=== PATIENT | female | born 1950 | race Caucasian/White ===

== ENCOUNTER 2019-09-07 13:39 | Inpatient (IN) | payer MEDICARE, OTHER ==
[~2019-09-07] VITALS: Ht 157.5 cm; Wt 64.9 kg
--- NOTE | 2019-09-07 14:00 | NUR ---
ED Nurse Note: Patient brought in by ambulance from residential due to back and neck pain. Patient awake, alert, oriented x 3 (name, place, and situation) and able to follow simple commands. Patient also c/o nausea, but no vomiting. Provided ice pack to neck and back area. HR was 62 with SBP ~ 79/51. ERMD aware. Placed patient on superintendent automotive.
--- NOTE | 2019-09-07 14:22 | Emergency Room Report ---
History of Present Illness General Chief Complaint: General Complaint Source: Patient, EMS Present Illness HPI Patient presents with neck and lower back pain. She states this is something new for her. She does have chronic pain and history of schizophrenia. The pain is rated 10/10 mainly in her neck and lower back. These are nonradiating. Aching and sharp. Is worse when she moves about. She denies trauma. She has generalized weakness but no increased weakness. The patient is taking Eliquis. The reason for anticoagulation is not clear. She also complains about abdominal pain. She also complains of dysuria. She denies any nausea, vomiting or diarrhea. She denies sore throat or productive cough. No fevers, chills, chest pain, palpitations, shortness of breath, rashes, visual changes, dizziness, headache. Allergies: Coded Allergies: DIPHENHYDRAMINE (Verified Allergy, Unknown, 09/07/19) PENICILLINS (Verified Allergy, Unknown, 09/07/19) SULFA (SULFONAMIDE ANTIBIOTICS) (Verified Allergy, Unknown, 09/07/19) SULFAMETHOXAZOLE (Verified Allergy, Unknown, 09/07/19) Shrimp (Verified Allergy, Unknown, 09/07/19) TETRACYCLINES (Verified Allergy, Unknown, 09/07/19) TRIMETHOPRIM (Verified Allergy, Unknown, 09/07/19) ZOLPIDEM (Verified Allergy, Unknown, 09/07/19) COVID-19 Screening Contact w/high risk pt: No Recent Travel to affected area: No Experienced COVID-19 symptoms?: No Patient History Past Medical History: see triage record Social History: Denies: smoking Social History Narrative Country [place] Reviewed Nursing Documentation: PMH: Agreed; PSxH: Agreed Review of Systems All Other Systems: negative except mentioned in HPI Physical Exam Vital Signs Date Time Temp Pulse Resp B/P (MAP) Pulse Ox O2 Delivery O2 Flow Rate FiO2 09/07/19 13:17 98.1 65 18 82/51 (61) 94 Room Air Sp02 EP Interpretation: reviewed, normal General Appearance: no apparent distress, GCS 15, Chronically Ill Head: normocephalic Eyes: bilateral eye normal inspection, bilateral eye PERRL, bilateral eye EOMI ENT: moist mucus membranes Neck: supple, tender - Bilaterally no point tenderness Respiratory: lungs clear, normal breath sounds Cardiovascular #1: regular rate, rhythm, no edema Cardiovascular #2: 2+ radial (L) Gastrointestinal: normal inspection, normal bowel sounds, no mass, non- distended, no guarding, no rebound, tenderness - Minimal suprapubic Genitourinary: no CVA tenderness Musculoskeletal: normal range of motion, no calf tenderness, gait/station normal, tender - Lumbar without point tenderness Neurologic: alert, motor strength/tone normal, oriented - X2, sensory intact, speech normal Psychiatric: depressed affect Skin: rash - Left side of mouth extending down towards chin, warm/dry Procedures Critical Care Time Critical Care Time Total Critical Care Time: 30 min bedside evaluation and treatment excludes procedures (EKG). Reason for critical care: hypotension, urinary tract infection, repeat evaluations Possible complications: hypotension, hypertension, [place], shock, arrhythmias, metabolic acidosis, end organ damage, respiratory failure. Interventions: Fluid bolus, antibiotics, analgesia with repeated doses and repeated evaluations Course: Patient presents with hypotension, neck and back pain. Fluid resuscitation initiated. Pyuria present and antibiotics begun. Ketamine ordered for pain. Unsuccessful in controlling pain. This was administered by me. Blood pressure better and Dilaudid ordered. Patient improved with treatment. Consultations: nursing staff, EMS Performed by: Dr. Corado Tolerated well condition = serious Medical Decision Making Diagnostic Impression: Primary Impression: Transient hypotension Additional Impressions: UTI (urinary tract infection) Qualified Codes: N39.0 - Urinary tract infection, site not specified Chronic neck and back pain ER Course Patient presents with neck and back pain with dysuria and hypotension. Differential includes acute myocardial infarction, sepsis, urinary tract infection, exacerbation of chronic pain, COVID amongst others. Patient evaluated with EKG, chest x-ray, labs including blood cultures. Patient treated with 30 mg/kg bolus and then 300 and hour IV hydration. Patient given ago dose of ketamine for pain. Consider CT neck and back if pain persists. EKG without injury. Labs with normal white count with left shift. Pyuria plan at present. Blood cultures ordered. Initial lactate negative. Pain persists after ketamine. BP better. Still with pain. Dilaudid ordered. Based on the patients presenting signs, symptoms and physical exam findings, the patient has been screened and doubted COVID-19. UA with some WBCs. As symptomatic, Rocephin given. Patient vital signs improved. Admitted telemetry as patient was transiently hypotensive. Laboratory Tests Test 09/07/19 14:00 09/07/19 16:46 White Blood Count 7.4 K/UL (4.8-10.8) Red Blood Count 4.08 M/UL (4.20-5.40) L Hemoglobin 11.9 G/DL (12.0-16.0) L Hematocrit 35.4 % (37.0-47.0) L Mean Corpuscular Volume 87 FL (80-99) Mean Corpuscular Hemoglobin 29.2 PG (27.0-31.0) Mean Corpuscular Hemoglobin Concent 33.6 G/DL (32.0-36.0) Red Cell Distribution Width 13.9 % (11.6-14.8) Platelet Count 219 K/UL (150-450) Mean Platelet Volume 5.2 FL (6.5-10.1) L Neutrophils (%) (Auto) 80.9 % (45.0-75.0) H Lymphocytes (%) (Auto) 12.3 % (20.0-45.0) L Monocytes (%) (Auto) 5.8 % (1.0-10.0) Eosinophils (%) (Auto) 0.3 % (0.0-3.0) Basophils (%) (Auto) 0.6 % (0.0-2.0) Prothrombin Time 11.4 SEC (9.30-11.50) Prothrombin Time INR 1.1 (0.9-1.1) Activated Partial Thromboplast Time 26 SEC (23-33) Sodium Level 142 MMOL/L (136-145) Potassium Level 4.0 MMOL/L (3.5-5.1) Chloride Level 105 MMOL/L (98-107) Carbon Dioxide Level 29 MMOL/L (21-32) Anion Gap 8 mmol/L (5-15) Blood Urea Nitrogen 18 mg/dL (7-18) Creatinine 0.5 MG/DL (0.55-1.30) L Estimated Glomerular Filtration Rate > 60 mL/min (>60) Glucose Level 85 MG/DL (74-106) Lactic Acid Level 0.50 mmol/L (0.4-2.0) Calcium Level 8.3 MG/DL (8.5-10.1) L Phosphorus Level 3.7 MG/DL (2.5-4.9) Magnesium Level 2.3 MG/DL (1.8-2.4) Total Bilirubin 0.4 MG/DL (0.2-1.0) Aspartate Amino Transferase (AST) 14 U/L (15-37) L Alanine Aminotransferase (ALT) 16 U/L (12-78) Alkaline Phosphatase 40 U/L (46-116) L Total Creatine Kinase 38 U/L (26-308) Troponin I 0.013 ng/mL (0.000-0.056) Pro-B-Type Natriuretic Peptide 97 pg/mL (0-125) Total Protein 6.4 G/DL (6.4-8.2) Albumin 3.7 G/DL (3.4-5.0) Globulin 2.7 g/dL Albumin/Globulin Ratio 1.4 (1.0-2.7) Lipase 100 U/L (73-393) Urine Color Pale yellow Urine Appearance Slightly cloudy Urine pH 5 (4.5-8.0) Urine Specific [place] 1.025 (1.005-1.035) Urine Protein 2+ (NEGATIVE) H Urine Glucose (UA) Negative (NEGATIVE) Urine Ketones 3+ (NEGATIVE) H Urine Blood 5+ (NEGATIVE) H Urine Nitrite Negative (NEGATIVE) Urine Bilirubin Negative (NEGATIVE) Urine Urobilinogen Normal MG/DL (0.0-1.0) Urine Leukocyte Esterase 3+ (NEGATIVE) H Urine RBC 10-15 /HPF (0 - 2) H Urine WBC 5-10 /HPF (0 - 2) H Urine Squamous Epithelial Cells Few /LPF (NONE/OCC) Urine Bacteria Moderate /HPF (NONE) H EKG Diagnostic Results Rate: bradycardiac Rhythm: NSR ST Segments: no acute changes Rhythm Strip Diag. Results EP Interpretation: yes Rhythm: no PVC's, no ectopy, other - stuart - rate 59 Chest X-Ray Diagnostic Results Chest X-Ray Diagnostic Results : Chest X-Ray Ordered: Yes # of Views/Limited/Complete: 1 View Indication: Other EP Interpretation: Yes Interpretation: no consolidation, no effusion, no pneumothorax Impression: No acute disease Electronically Signed by: Electronically signed by Roge Corado MD Last Vital Signs Date Time Temp Pulse Resp B/P (MAP) Pulse Ox O2 Delivery O2 Flow Rate FiO2 09/08/19 00:00 57 09/08/19 00:00 Room Air 09/07/19 18:32 98.2 22 104/62 (76) 96 Status: improved Disposition: ADMITTED INPATIENT Condition: Serious Roge Corado MD Sep 07, 2019 14:22
[2019-09-07] MEDS ORDERED: VOLTAREN100 G1 TP (14:24)
[2019-09-07] MEDS ORDERED: ARTIFICIAL TEAR15 M8 OP (14:24)
[2019-09-07] MEDS ORDERED: SENNA8.6 M2 PO (14:24)
[2019-09-07] MEDS ORDERED: FLUTICASONE PRO16 G1 NASAL (14:24)
[2019-09-07] MEDS ORDERED: NORVASC5 MG ORAL (14:24)
[2019-09-07] MEDS ORDERED: LACTULOSE20 GM/301 ORAL (14:24)
[2019-09-07] MEDS ORDERED: MELATONIN 3 MG1 EAC1 PO (14:24)
[2019-09-07] MEDS ORDERED: GABAPENTIN100 MG ORAL (14:24)
[2019-09-07] MEDS ORDERED: NORCO 5-325 TA1 EAC1 ORAL (14:24)
[2019-09-07] MEDS ORDERED: INGREZZA INITI1 EACH PO (14:24)
[2019-09-07] MEDS ORDERED: ZYPREXA5 MG ORAL (14:24)
[2019-09-07] MEDS ORDERED: ZYRTEC10 MG ORAL (14:24)
[2019-09-07] MEDS ORDERED: POLYETHYLENE GL17 GM ORAL (14:24)
[2019-09-07] MEDS ORDERED: MULTIVITAMINS1 EAC2 ORAL (14:24)
[2019-09-07] MEDS ORDERED: PROBIOTIC1 EAC2 PO (14:24)
[2019-09-07] MEDS ORDERED: LEXAPRO10 MG ORAL (14:27)
[2019-09-07] MEDS ORDERED: IBUPROFEN600 M1 ORAL (14:27)
[2019-09-07] MEDS ORDERED: ELIQUIS2.5 MG PO (14:27)
[2019-09-07] MEDS ORDERED: ATIVAN1 MG ORAL (14:29)
[2019-09-07] MEDS ORDERED: Ketamine HCl 50mg/ml 1ml Syr IV ONE (14:30)
[2019-09-07 14:54] LABS: BASOPHILS % (AUTO) 0.6 % (0.0-2.0); EOSINOPHILS % (AUTO) 0.3 % (0.0-3.0); HEMATOCRIT 35.4 % (37.0-47.0); HEMOGLOBIN 11.9 G/DL (12.0-16.0); LYMPHOCYTES % (AUTO) 12.3 % (20.0-45.0); MEAN CORPUSCULAR VOLUME 87 FL (80-99); MONOCYTES % (AUTO) 5.8 % (1.0-10.0); NEUTROPHILS % (AUTO) 80.9 % (45.0-75.0); PLATELET COUNT 219 K/UL (150-450); RED BLOOD COUNT 4.08 M/UL (4.20-5.40); RED CELL DISTRIBUTION WIDTH 13.9 % (11.6-14.8); WHITE BLOOD COUNT 7.4 K/UL (4.8-10.8)
[2019-09-07 15:00] VITALS: BP 135/82
[2019-09-07 15:04] LABS: INR 1.1 (0.9-1.1)
[2019-09-07 15:09] LABS: ANION GAP 8 mmol/L (5-15); BLOOD UREA NITROGEN 18 mg/dL (7-18); CALCIUM 8.3 MG/DL (8.5-10.1); CARBON DIOXIDE 29 MMOL/L (21-32); CHLORIDE 105 MMOL/L (98-107); CREATININE 0.5 MG/DL (0.55-1.30); SODIUM 142 MMOL/L (136-145)
--- NOTE | 2019-09-07 15:10 | NUR ---
ED Nurse Note: Report given to FLORES Montes. Patient moved to room #7.
--- NOTE | 2019-09-07 15:12 | NUR ---
ED Nurse Note: RN handed 10mg Ketamine to Dr. Corado. Ketamine administered by Dr. Corado.
[2019-09-07 15:19] LABS: ALANINE AMINOTRANSFERASE 16 U/L (12-78); ALBUMIN 3.7 G/DL (3.4-5.0); ALBUMIN/GLOBULIN RATIO 1.4 (1.0-2.7); ALKALINE PHOSPHATASE 40 U/L (46-116); ASPARTATE AMINO TRANSFERASE 14 U/L (15-37); BILIRUBIN,TOTAL 0.4 MG/DL (0.2-1.0); CREATINE KINASE 38 U/L (26-308); PHOSPHORUS 3.7 MG/DL (2.5-4.9)
--- NOTE | 2019-09-07 15:29 | NUR ---
ED Nurse Note: pt resting in isolation room with even regular resp after meds given by md. ivf bolus infusing well.
--- NOTE | 2019-09-07 15:50 | NUR ---
ED Nurse Note: covid 19 swab sent. pt tolerates well. pt easily awakens to verbal stimuli by rn. relates continued pain 8/10 but able to rest. resp even and regular
[2019-09-07 16:00] VITALS: BP 145/89
[2019-09-07] MEDS ORDERED: Hydromorphone 0.5mg/0.5ml inj IVP ONE (16:30)
--- NOTE | 2019-09-07 16:32 | Diagnostic Imaging Report ---
Indication: Cough Technique: One view of the chest Comparison: none Findings: Lungs and pleural spaces are clear. Heart size is normal. Impression: No acute process
--- NOTE | 2019-09-07 16:52 | NUR ---
ED Nurse Note: pt with straight cath urine sent as ordered. cloudy yellow noted. pt tolerates well.
[2019-09-07 17:03] LABS: APPEARANCE,URINE SLIGHTLY CLOUDY; BILIRUBIN, URINE NEGATIVE (NEGATIVE); COLOR,URINE PALE YELLOW; GLUCOSE, URINE (UA) NEGATIVE (NEGATIVE); KETONES,URINE 3+ (NEGATIVE); LEUKOCYTE ESTERASE ,URINE 3+ (NEGATIVE); NITRITE,URINE NEGATIVE (NEGATIVE); PH,URINE 5 (4.5-8.0); PROTEIN,URINE 2+ (NEGATIVE); UROBILINOGEN,URINE NORMAL MG/DL (0.0-1.0)
[2019-09-07 17:04] VITALS: BP 142/90
[2019-09-07] MEDS ORDERED: cefTRIAXone 1 GM in D5W 55 ML IVPB ONE (17:30)
[2019-09-07 17:51] VITALS: BP 154/87
--- NOTE | 2019-09-07 18:12 | NUR ---
NURSE NOTES: Received patient from ED. Transferred comfortably to cardiac bed. Vital signs stable. Patient is verbal, able to make some needs known. Bed Alarm on, on lowest position. Call light within reach. Kept clean and dry.
[2019-09-07 18:32] VITALS: BP 104/62
--- NOTE | 2019-09-07 19:10 | NUR ---
HAND-OFF: Report given to Osvaldo Yi RN.
--- NOTE | 2019-09-07 19:20 | NUR ---
NURSE NOTES: Report received from FLORES Mccoy. Observed pt lying in the bed, anxious, HR of 120s noted, ST. On room air with no sob, sat at 97%. Abd soft, round, and non-tender. Skin intact. IV on R FA 18G, asymptomatic, TKO. Purewick applied. Bed in the lowest position. Side rails up x3. Will continue to monitor.
[2019-09-07 20:00] VITALS: BP 113/70
--- NOTE | 2019-09-07 22:00 | NUR ---
NURSE NOTES: notified regarding agitation and restlessness, new order received and carried out.
[2019-09-08] VITALS: BP 153/110
--- NOTE | 2019-09-08 | Consultation ---
DATE OF CONSULTATION: 09/07/2019 HISTORY OF PRESENT ILLNESS: This is a 68-year-old female from [facility]. The patient is not eating, also complaining of pain, history of schizophrenia as well as depression, and has been admitted to the hospital for medical stabilization. The patient is presenting with anxiety, agitation, and delusional thoughts. The patient very labile and gets agitated easily. PAST PSYCHIATRIC HISTORY: Schizophrenia, cognitive impairment. PAST MEDICAL HISTORY: Nonsignificant. ALLERGIES: Diphenhydramine, penicillin, sulfa, and tetracycline. SUBSTANCE ABUSE HISTORY: No known history of illicit drug use or alcohol. MENTAL STATUS EXAMINATION: The patient is oriented times self, place, situation. Mood is depressed. Affect is blunted. Congruent with mood. Thought process is concrete. Thought content, no suicidal or homicidal ideation. Cognition is impaired. Insight and judgment impaired. ASSESSMENT: [place] I Schizophrenia. Cognitive impairment [place] II Deferred. [place] III As above. [place] IV Low. [place] V 20 to 30 PLAN: 1. Remeron 15 mg at bedtime. 2. Risperidone 1 mg in the morning. 3. Provide the patient with reality orientation. Taty Syed M.D. DR: Jose JOB#: [id number] CC: BRISSA
--- NOTE | 2019-09-08 01:41 | NUR ---
NURSE NOTES: pt agitated, HR went up to 140s. pt constantly yelling for help and screams. Calming measures done. Bed bath given. Will continue to monitor.
--- NOTE | 2019-09-08 02:00 | NUR ---
NURSE NOTES: Pt agitated and noted HR goes up to 140s. stayed next to pt to calm but as long as RN leaves, pt starts to scream again.
[2019-09-08 04:00] VITALS: BP 92/53
[2019-09-08 05:54] LABS: HEMATOCRIT 31.4 % (37.0-47.0); HEMOGLOBIN 10.7 G/DL (12.0-16.0); MEAN CORPUSCULAR VOLUME 88 FL (80-99); PLATELET COUNT 193 K/UL (150-450); RED BLOOD COUNT 3.59 M/UL (4.20-5.40); WHITE BLOOD COUNT 8.7 K/UL (4.8-10.8)
[2019-09-08 06:02] LABS: ALANINE AMINOTRANSFERASE 15 U/L (12-78); ALBUMIN 3.3 G/DL (3.4-5.0); ALBUMIN/GLOBULIN RATIO 1.2 (1.0-2.7); ALKALINE PHOSPHATASE 40 U/L (46-116); ANION GAP 17 mmol/L (5-15); ASPARTATE AMINO TRANSFERASE 13 U/L (15-37); BILIRUBIN,TOTAL 0.3 MG/DL (0.2-1.0); BLOOD UREA NITROGEN 12 mg/dL (7-18); CALCIUM 7.6 MG/DL (8.5-10.1); CARBON DIOXIDE 20 MMOL/L (21-32); CHLORIDE 110 MMOL/L (98-107); CREATININE 0.6 MG/DL (0.55-1.30); POTASSIUM 3.6 MMOL/L (3.5-5.1); SODIUM 147 MMOL/L (136-145)
--- NOTE | 2019-09-08 07:09 | Consultation ---
History of Present Illness General Chief Complaint: General Complaint Present Illness Allergies: Coded Allergies: DIPHENHYDRAMINE (Verified Allergy, Unknown, 09/07/19) PENICILLINS (Verified Allergy, Unknown, 09/07/19) SULFA (SULFONAMIDE ANTIBIOTICS) (Verified Allergy, Unknown, 09/07/19) SULFAMETHOXAZOLE (Verified Allergy, Unknown, 09/07/19) Shrimp (Verified Allergy, Unknown, 09/07/19) TETRACYCLINES (Verified Allergy, Unknown, 09/07/19) TRIMETHOPRIM (Verified Allergy, Unknown, 09/07/19) ZOLPIDEM (Verified Allergy, Unknown, 09/07/19) Medication History Scheduled Amlodipine Besylate (Norvasc), 5 MG ORAL DAILY, (Reported) Cetirizine Hcl* (Zyrtec*), 10 MG ORAL DAILY, (Reported) Escitalopram Oxalate* (Lexapro*), 10 MG ORAL DAILY, (Reported) Fluticasone Propionate* (Fluticasone Propionate*), 1 SPRAY NASAL DAILY, ( Reported) Ibuprofen* (Motrin*), 200 MG ORAL FOUR TIMES A DAY, (Reported) Lorazepam* (Ativan*), 1 MG ORAL THREE TIMES A DAY, (Reported) Multivitamins* (Multivitamins*), 1 TAB ORAL DAILY, (Reported) Olanzapine* (Zyprexa*), 7.5 MG ORAL DAILY, (Reported) Scheduled PRN Hydrocodone Bit/Acetaminophen 5-325* ([place] 5-325 Tablet*), 1 TAB ORAL Q4H PRN for For Pain, (Reported) Polyethylene Glycol 3350* (Polyethylene Glycol 3350*), 17 GM ORAL BEDTIME PRN for Constipation, (Reported) Miscellaneous Medications Apixaban (Eliquis), 2.5 MG PO, (Reported) Carboxymethylcellulose Sodium (Artificial Tears), 15 ML OP, (Reported) Diclofenac Sodium (Voltaren), 100 GM TP, (Reported) Gabapentin* (Gabapentin*), 100 MG ORAL, (Reported) Lactobacillus Acidophilus (Probiotic), 1 EACH PO, (Reported) Lactulose (Lactulose*), 30 ML ORAL, (Reported) Melatonin/Pyridoxine HCl (B6) (Melatonin 3 mg Tablet), 1 EACH PO, (Reported) Sennosides (Senna), 8.6 MG PO, (Reported) Valbenazine Tosylate (Ingrezza Initiation Pack), 1 EACH PO, (Reported) Patient History Healthcare decision maker N Resuscitation status Full Code Advanced Directive on File Physical Exam Last 24 Hour Vital Signs Date Time Temp Pulse Resp B/P (MAP) Pulse Ox O2 Delivery O2 Flow Rate FiO2 09/08/19 04:00 Room Air 09/08/19 04:00 97.8 60 20 92/53 (66) 98 09/08/19 03:34 62 09/08/19 00:00 57 09/08/19 00:00 97.9 125 22 153/110 (124) 98 09/08/19 00:00 Room Air 09/07/19 22:30 Room Air 09/07/19 20:00 112 09/07/19 20:00 98.2 62 22 113/70 (84) 97 09/07/19 18:41 122 09/07/19 18:32 98.2 112 22 104/62 (76) 96 09/07/19 17:59 77 20 154/87 97 Room Air 09/07/19 17:51 77 17 154/87 97 Room Air 09/07/19 17:04 95 17 142/90 97 Room Air 09/07/19 16:00 65 18 Room Air 09/07/19 16:00 100 19 145/89 98 Room Air 09/07/19 15:00 84 17 135/82 97 Room Air 09/07/19 13:17 98.1 65 18 82/51 (61) 94 Room Air Intake and Output 09/07/19 09/08/19 19:00 07:00 Intake Total 2055 ml 240 ml Balance 2055 ml 240 ml Intake Oral 0 ml 240 ml IV Total 2055 ml # Voids 2 Laboratory Tests Test 09/07/19 14:00 09/07/19 16:46 09/08/19 04:00 White Blood Count 7.4 K/UL (4.8-10.8) 8.7 K/UL (4.8-10.8) Red Blood Count 4.08 M/UL (4.20-5.40) L 3.59 M/UL (4.20-5.40) L Hemoglobin 11.9 G/DL (12.0-16.0) L 10.7 G/DL (12.0-16.0) L Hematocrit 35.4 % (37.0-47.0) L 31.4 % (37.0-47.0) L Mean Corpuscular Volume 87 FL (80-99) 88 FL (80-99) Mean Corpuscular Hemoglobin 29.2 PG (27.0-31.0) 29.9 PG (27.0-31.0) Mean Corpuscular Hemoglobin Concent 33.6 G/DL (32.0-36.0) 34.2 G/DL (32.0-36.0) Red Cell Distribution Width 13.9 % (11.6-14.8) 14.0 % (11.6-14.8) Platelet Count 219 K/UL (150-450) 193 K/UL (150-450) Mean Platelet Volume 5.2 FL (6.5-10.1) L 4.9 FL (6.5-10.1) L Neutrophils (%) (Auto) 80.9 % (45.0-75.0) H % (45.0-75.0) Lymphocytes (%) (Auto) 12.3 % (20.0-45.0) L % (20.0-45.0) Monocytes (%) (Auto) 5.8 % (1.0-10.0) % (1.0-10.0) Eosinophils (%) (Auto) 0.3 % (0.0-3.0) % (0.0-3.0) Basophils (%) (Auto) 0.6 % (0.0-2.0) % (0.0-2.0) Prothrombin Time 11.4 SEC (9.30-11.50) Prothromb Time International Ratio 1.1 (0.9-1.1) Activated Partial Thromboplast Time 26 SEC (23-33) Sodium Level 142 MMOL/L (136-145) 147 MMOL/L (136-145) H Potassium Level 4.0 MMOL/L (3.5-5.1) 3.6 MMOL/L (3.5-5.1) Chloride Level 105 MMOL/L (98-107) 110 MMOL/L (98-107) H Carbon Dioxide Level 29 MMOL/L (21-32) 20 MMOL/L (21-32) L Anion Gap 8 mmol/L (5-15) 17 mmol/L (5-15) H Blood Urea Nitrogen 18 mg/dL (7-18) 12 mg/dL (7-18) Creatinine 0.5 MG/DL (0.55-1.30) L 0.6 MG/DL (0.55-1.30) Estimat Glomerular Filtration Rate > 60 mL/min (>60) > 60 mL/min (>60) Glucose Level 85 MG/DL (74-106) 85 MG/DL (74-106) Lactic Acid Level 0.50 mmol/L (0.4-2.0) Calcium Level 8.3 MG/DL (8.5-10.1) L 7.6 MG/DL (8.5-10.1) L Phosphorus Level 3.7 MG/DL (2.5-4.9) Magnesium Level 2.3 MG/DL (1.8-2.4) Total Bilirubin 0.4 MG/DL (0.2-1.0) 0.3 MG/DL (0.2-1.0) Aspartate Amino Transf (AST/SGOT) 14 U/L (15-37) L 13 U/L (15-37) L Alanine Aminotransferase (ALT/SGPT) 16 U/L (12-78) 15 U/L (12-78) Alkaline Phosphatase 40 U/L (46-116) L 40 U/L (46-116) L Total Creatine Kinase 38 U/L (26-308) Troponin I 0.013 ng/mL (0.000-0.056) Pro-B-Type Natriuretic Peptide 97 pg/mL (0-125) Total Protein 6.4 G/DL (6.4-8.2) 6.0 G/DL (6.4-8.2) L Albumin 3.7 G/DL (3.4-5.0) 3.3 G/DL (3.4-5.0) L Globulin 2.7 g/dL 2.7 g/dL Albumin/Globulin Ratio 1.4 (1.0-2.7) 1.2 (1.0-2.7) Lipase 100 U/L (73-393) Urine Color Pale yellow Urine Appearance Slightly cloudy Urine pH 5 (4.5-8.0) Urine Specific [place] 1.025 (1.005-1.035) Urine Protein 2+ (NEGATIVE) H Urine Glucose (UA) Negative (NEGATIVE) Urine Ketones 3+ (NEGATIVE) H Urine Blood 5+ (NEGATIVE) H Urine Nitrite Negative (NEGATIVE) Urine Bilirubin Negative (NEGATIVE) Urine Urobilinogen Normal MG/DL (0.0-1.0) Urine Leukocyte Esterase 3+ (NEGATIVE) H Urine RBC 10-15 /HPF (0 - 2) H Urine WBC 5-10 /HPF (0 - 2) H Urine Squamous Epithelial Cells Few /LPF (NONE/OCC) Urine Bacteria Moderate /HPF (NONE) H Microbiology Date/Time Source Procedure Growth Status 09/07/19 17:24 Rectal Mucosa Received Height (Feet): 5 Height (Inches): 2.00 Weight (Pounds): 143 Medications Current Medications Medications (Trade) Dose Ordered Sig/Chen Route PRN Reason Start Time Stop Time Status Last Admin Dose Admin Acetaminophen (Tylenol) 650 mg Q4H PRN ORAL Mild Pain/Temp > 100.5 09/07/19 21:15 10/07/19 21:14 09/07/19 22:12 Mirtazapine (Remeron) 15 mg BEDTIME ORAL 09/07/19 22:00 12/06/19 21:59 09/07/19 22:11 Risperidone (RisperDAL) 1 mg DAILY ORAL 09/08/19 09:00 10/23/19 08:59 Assessment/Plan Assessment/Plan: Heme Consultation Note REQ MD: Deneen Pierre DOS: 09/08/2019 RFC: Evaluation of hypercoagulable disorder (is on eliquis) ID 68y old male, presents with neck and lower back pain. She states this is something new for her. She does have chronic pain and history of schizophrenia. The pain is rated 10/10 mainly in her neck and lower back. These are nonradiating. Aching and sharp. Is worse when she moves about. She denies trauma. She has generalized weakness but no increased weakness. The patient is taking Eliquis. The reason for anticoagulation is not clear. She also complains about abdominal pain. She also complains of dysuria. She denies any nausea, vomiting or diarrhea. She denies sore throat or productive cough. No fevers, chills, chest pain, palpitations, shortness of breath, rashes, visual changes, dizziness, headache. During interview today, very confused, no bleeding, labs noted, on eliquis po Allergies: Coded Allergies: DIPHENHYDRAMINE (Verified Allergy, Unknown, 09/07/19) PENICILLINS (Verified Allergy, Unknown, 09/07/19) SULFA (SULFONAMIDE ANTIBIOTICS) (Verified Allergy, Unknown, 09/07/19) SULFAMETHOXAZOLE (Verified Allergy, Unknown, 09/07/19) Shrimp (Verified Allergy, Unknown, 09/07/19) TETRACYCLINES (Verified Allergy, Unknown, 09/07/19) TRIMETHOPRIM (Verified Allergy, Unknown, 09/07/19) ZOLPIDEM (Verified Allergy, Unknown, 09/07/19) COVID-19 Screening Contact w/high risk pt: No Recent Travel to affected area: No Experienced COVID-19 symptoms?: No Patient History Past Medical History: see triage record Social History: Denies: smoking Social History Narrative [place] Reviewed Nursing Documentation: PMH: Agreed; PSxH: Agreed Review of Systems All Other Systems: negative except mentioned in HPI, confused now PE Vitals noted General: no apparent distress, GCS 15 Heent: nc, at Neck: supple, tender - Bilaterally no point tenderness Respiratory: lungs clear, normal breath sounds Cv: rrr, no mgr Gi normal inspection, normal bowel sounds, no mass, nd - Minimal suprapubic Gu: no CVA tenderness Msk: normal range of motion, no calf tenderness, gait/station normal, tender Neuro: alert, motor strength/tone normal, oriented - X2, sensory intact Psychiatric: depressed affect Skin: rash - Left side of mouth extending down towards chin, warm/dry Labs: noted Imaging: reviewed Assessment and Recs: # Hypercoagulable disorder -- on eliquis, cardiology has been consulted --> obtain duplex of lower extremities and restart apixaban as needed --> will evaluate cards recs if qualifies for eliquis --> get home / outpatient records # Anemia of chronic disease --> hold of extensive workup --> hgb 10.7 --> w/u if lower # Transient hypotension --> ivf have been started --> abx, ctx # UTI (urinary tract infection) --> on abx # Anxiety as per psych # Chronic neck and back pain Appreciate consultation and dw Tony Jaramillo MD Sep 08, 2019 07:09
--- NOTE | 2019-09-08 07:23 | NUR ---
HAND-OFF: Report given to FLORES Rojas.
--- NOTE | 2019-09-08 07:23 | NUR ---
NURSE NOTES: Received report from Lupillo RN. Pt in bed awake and orientedx2 or 3 and agitating and screaming for help. Noted pt with someone at the bedside and no screaming and cooperating. Pt able to make needs known. IV site in RFC 18G running TKO patent and asymptomatic. Bed in lowest position and locked. Side railsx3 up for safety. Sinus Amado(50s) or Sinus tachy(140s) reported from previous shift. Call light within easy reach. Will continue to plan of care.
[2019-09-08 07:40] VITALS: BP 142/69
--- NOTE | 2019-09-08 09:00 | NUR ---
NURSE NOTES: Noted pt screaming for help without reason. Dr. Syed paged for pt's agitation. No new order received.
--- NOTE | 2019-09-08 11:10 | NUR ---
NURSE NOTES: Jose PHAN is present in the unit and evaluated pt's headache. Per Jose PHAN, pt did not ask any extra pain meds except Tylenol. Tylenol 650mg po Q4 PRN will be given for pain management.
--- NOTE | 2019-09-08 11:21 | Consultation ---
History of Present Illness General Date patient seen: Sep 08, 2019 Chief Complaint: Present Illness Allergies: Coded Allergies: DIPHENHYDRAMINE (Verified Allergy, Unknown, 09/07/19) PENICILLINS (Verified Allergy, Unknown, 09/07/19) SULFA (SULFONAMIDE ANTIBIOTICS) (Verified Allergy, Unknown, 09/07/19) SULFAMETHOXAZOLE (Verified Allergy, Unknown, 09/07/19) Shrimp (Verified Allergy, Unknown, 09/07/19) TETRACYCLINES (Verified Allergy, Unknown, 09/07/19) TRIMETHOPRIM (Verified Allergy, Unknown, 09/07/19) ZOLPIDEM (Verified Allergy, Unknown, 09/07/19) Medication History Scheduled Amlodipine Besylate (Norvasc), 5 MG ORAL DAILY, (Reported) Cetirizine Hcl* (Zyrtec*), 10 MG ORAL DAILY, (Reported) Escitalopram Oxalate* (Lexapro*), 10 MG ORAL DAILY, (Reported) Fluticasone Propionate* (Fluticasone Propionate*), 1 SPRAY NASAL DAILY, ( Reported) Ibuprofen* (Motrin*), 200 MG ORAL FOUR TIMES A DAY, (Reported) Lorazepam* (Ativan*), 1 MG ORAL THREE TIMES A DAY, (Reported) Multivitamins* (Multivitamins*), 1 TAB ORAL DAILY, (Reported) Olanzapine* (Zyprexa*), 7.5 MG ORAL DAILY, (Reported) Scheduled PRN Hydrocodone Bit/Acetaminophen 5-325* ([place] 5-325 Tablet*), 1 TAB ORAL Q4H PRN for For Pain, (Reported) Polyethylene Glycol 3350* (Polyethylene Glycol 3350*), 17 GM ORAL BEDTIME PRN for Constipation, (Reported) Miscellaneous Medications Apixaban (Eliquis), 2.5 MG PO, (Reported) Carboxymethylcellulose Sodium (Artificial Tears), 15 ML OP, (Reported) Diclofenac Sodium (Voltaren), 100 GM TP, (Reported) Gabapentin* (Gabapentin*), 100 MG ORAL, (Reported) Lactobacillus Acidophilus (Probiotic), 1 EACH PO, (Reported) Lactulose (Lactulose*), 30 ML ORAL, (Reported) Melatonin/Pyridoxine HCl (B6) (Melatonin 3 mg Tablet), 1 EACH PO, (Reported) Sennosides (Senna), 8.6 MG PO, (Reported) Valbenazine Tosylate (Ingrezza Initiation Pack), 1 EACH PO, (Reported) Patient History Healthcare decision maker N Resuscitation status Full Code Advanced Directive on File Physical Exam Last 24 Hour Vital Signs Date Time Temp Pulse Resp B/P (MAP) Pulse Ox O2 Delivery O2 Flow Rate FiO2 09/08/19 08:00 126 09/08/19 08:00 Room Air 09/08/19 07:40 97.7 72 22 142/69 (93) 97 09/08/19 04:00 Room Air 09/08/19 04:00 97.8 60 20 92/53 (66) 98 09/08/19 03:34 62 09/08/19 00:00 57 09/08/19 00:00 97.9 125 22 153/110 (124) 98 09/08/19 00:00 Room Air 09/07/19 22:30 Room Air 09/07/19 20:00 112 09/07/19 20:00 98.2 62 22 113/70 (84) 97 09/07/19 18:41 122 09/07/19 18:32 98.2 112 22 104/62 (76) 96 09/07/19 17:59 77 20 154/87 97 Room Air 09/07/19 17:51 77 17 154/87 97 Room Air 09/07/19 17:04 95 17 142/90 97 Room Air 09/07/19 16:00 65 18 Room Air 09/07/19 16:00 100 19 145/89 98 Room Air 09/07/19 15:00 84 17 135/82 97 Room Air 09/07/19 13:17 98.1 65 18 82/51 (61) 94 Room Air Intake and Output 09/07/19 09/08/19 19:00 07:00 Intake Total 2055 ml 240 ml Balance 2055 ml 240 ml Intake Oral 0 ml 240 ml IV Total 2055 ml # Voids 2 Laboratory Tests Test 09/07/19 14:00 09/07/19 16:46 09/08/19 04:00 White Blood Count 7.4 K/UL (4.8-10.8) 8.7 K/UL (4.8-10.8) Red Blood Count 4.08 M/UL (4.20-5.40) L 3.59 M/UL (4.20-5.40) L Hemoglobin 11.9 G/DL (12.0-16.0) L 10.7 G/DL (12.0-16.0) L Hematocrit 35.4 % (37.0-47.0) L 31.4 % (37.0-47.0) L Mean Corpuscular Volume 87 FL (80-99) 88 FL (80-99) Mean Corpuscular Hemoglobin 29.2 PG (27.0-31.0) 29.9 PG (27.0-31.0) Mean Corpuscular Hemoglobin Concent 33.6 G/DL (32.0-36.0) 34.2 G/DL (32.0-36.0) Red Cell Distribution Width 13.9 % (11.6-14.8) 14.0 % (11.6-14.8) Platelet Count 219 K/UL (150-450) 193 K/UL (150-450) Mean Platelet Volume 5.2 FL (6.5-10.1) L 4.9 FL (6.5-10.1) L Neutrophils (%) (Auto) 80.9 % (45.0-75.0) H % (45.0-75.0) Lymphocytes (%) (Auto) 12.3 % (20.0-45.0) L % (20.0-45.0) Monocytes (%) (Auto) 5.8 % (1.0-10.0) % (1.0-10.0) Eosinophils (%) (Auto) 0.3 % (0.0-3.0) % (0.0-3.0) Basophils (%) (Auto) 0.6 % (0.0-2.0) % (0.0-2.0) Prothrombin Time 11.4 SEC (9.30-11.50) Prothromb Time International Ratio 1.1 (0.9-1.1) Activated Partial Thromboplast Time 26 SEC (23-33) Sodium Level 142 MMOL/L (136-145) 147 MMOL/L (136-145) H Potassium Level 4.0 MMOL/L (3.5-5.1) 3.6 MMOL/L (3.5-5.1) Chloride Level 105 MMOL/L (98-107) 110 MMOL/L (98-107) H Carbon Dioxide Level 29 MMOL/L (21-32) 20 MMOL/L (21-32) L Anion Gap 8 mmol/L (5-15) 17 mmol/L (5-15) H Blood Urea Nitrogen 18 mg/dL (7-18) 12 mg/dL (7-18) Creatinine 0.5 MG/DL (0.55-1.30) L 0.6 MG/DL (0.55-1.30) Estimat Glomerular Filtration Rate > 60 mL/min (>60) > 60 mL/min (>60) Glucose Level 85 MG/DL (74-106) 85 MG/DL (74-106) Lactic Acid Level 0.50 mmol/L (0.4-2.0) Calcium Level 8.3 MG/DL (8.5-10.1) L 7.6 MG/DL (8.5-10.1) L Phosphorus Level 3.7 MG/DL (2.5-4.9) Magnesium Level 2.3 MG/DL (1.8-2.4) Total Bilirubin 0.4 MG/DL (0.2-1.0) 0.3 MG/DL (0.2-1.0) Aspartate Amino Transf (AST/SGOT) 14 U/L (15-37) L 13 U/L (15-37) L Alanine Aminotransferase (ALT/SGPT) 16 U/L (12-78) 15 U/L (12-78) Alkaline Phosphatase 40 U/L (46-116) L 40 U/L (46-116) L Total Creatine Kinase 38 U/L (26-308) Troponin I 0.013 ng/mL (0.000-0.056) Pro-B-Type Natriuretic Peptide 97 pg/mL (0-125) Total Protein 6.4 G/DL (6.4-8.2) 6.0 G/DL (6.4-8.2) L Albumin 3.7 G/DL (3.4-5.0) 3.3 G/DL (3.4-5.0) L Globulin 2.7 g/dL 2.7 g/dL Albumin/Globulin Ratio 1.4 (1.0-2.7) 1.2 (1.0-2.7) Lipase 100 U/L (73-393) Urine Color Pale yellow Urine Appearance Slightly cloudy Urine pH 5 (4.5-8.0) Urine Specific [place] 1.025 (1.005-1.035) Urine Protein 2+ (NEGATIVE) H Urine Glucose (UA) Negative (NEGATIVE) Urine Ketones 3+ (NEGATIVE) H Urine Blood 5+ (NEGATIVE) H Urine Nitrite Negative (NEGATIVE) Urine Bilirubin Negative (NEGATIVE) Urine Urobilinogen Normal MG/DL (0.0-1.0) Urine Leukocyte Esterase 3+ (NEGATIVE) H Urine RBC 10-15 /HPF (0 - 2) H Urine WBC 5-10 /HPF (0 - 2) H Urine Squamous Epithelial Cells Few /LPF (NONE/OCC) Urine Bacteria Moderate /HPF (NONE) H Microbiology Date/Time Source Procedure Growth Status 09/07/19 16:46 Urine,Clean Catch Urine Culture - Preliminary Resulted 09/07/19 17:24 Rectal Mucosa Received Height (Feet): 5 Height (Inches): 2.00 Weight (Pounds): 143 Medications Current Medications Medications (Trade) Dose Ordered Sig/Chen Route PRN Reason Start Time Stop Time Status Last Admin Dose Admin Acetaminophen (Tylenol) 650 mg Q4H PRN ORAL Mild Pain/Temp > 100.5 09/07/19 21:15 10/07/19 21:14 09/08/19 08:46 Ceftriaxone Sodium 1 gm/ Dextrose 55 ml @ 110 mls/hr Q24H IVPB 09/08/19 18:00 09/15/19 17:59 Mirtazapine (Remeron) 15 mg BEDTIME ORAL 09/07/19 22:00 12/06/19 21:59 09/07/19 22:11 Risperidone (RisperDAL) 1 mg DAILY ORAL 09/08/19 09:00 10/23/19 08:59 09/08/19 08:46 Assessment/Plan Assessment/Plan: (1) Degenerative joint disease (2) Multiple joint pain Seen dictated Ricardo Garcia Sep 08, 2019 11:21
[2019-09-08 12:00] VITALS: BP 98/51
--- NOTE | 2019-09-08 13:07 | NUR ---
CASE MANAGEMENT: INITIAL REVIEW 68 YO F BIBA FROM [facility] CC: GEN WEAKNESS PMHx: chronic pain and history of schizophrenia. SI:TRANSIENT HYPOTENSION T 89.1 HR 65 RR 18 B/P 82/51 SATS 94% ON RA LABS: CR 0.5 CA 8.3 AST 14 ALP 40 IS: EKG Rhythm: no PVC's, no ectopy, other - stuart - rate 59 CXR Impression: No acute disease RISPERDAL PO QD CEFTRIAXONE IV Q24H PATIENT ADMITTED TO SDU 09/07/2019 @ 1458 DCP: SNF PLAN OF CARE: VENOUS DUPLEX COVID 19 TESTING ISO PRECAUTIONS
--- NOTE | 2019-09-08 13:43 | Consultation ---
Consult Note Consult Note Asked to evaluate at the request of Dr. Reyna for hypotension, fluid and electrolyte management ER note Patient presents with neck and lower back pain. She states this is something new for her. She does have chronic pain and history of schizophrenia. The pain is rated 10/10 mainly in her neck and lower back. These are nonradiating. Aching and sharp. Is worse when she moves about. She denies trauma. She has generalized weakness but no increased weakness. The patient is taking Eliquis. The reason for anticoagulation is not clear. She also complains about abdominal pain. She also complains of dysuria. She denies any nausea, vomiting or diarrhea. She denies sore throat or productive cough. No fevers, chills, chest pain, palpitations, shortness of breath, rashes, visual changes, dizziness, headache. Coded Allergies: DIPHENHYDRAMINE (Verified Allergy, Unknown, 09/07/19) PENICILLINS (Verified Allergy, Unknown, 09/07/19) SULFA (SULFONAMIDE ANTIBIOTICS) (Verified Allergy, Unknown, 09/07/19) SULFAMETHOXAZOLE (Verified Allergy, Unknown, 09/07/19) Shrimp (Verified Allergy, Unknown, 09/07/19) TETRACYCLINES (Verified Allergy, Unknown, 09/07/19) TRIMETHOPRIM (Verified Allergy, Unknown, 09/07/19) ZOLPIDEM (Verified Allergy, Unknown, 09/07/19) COVID-19 Screening Contact w/high risk pt: No Recent Travel to affected area: No Experienced COVID-19 symptoms?: No Social History Narrative [place] Reviewed Nursing Documentation: PMH: Agreed; PSxH: Agreed Assessment/Plan Episodic hypotension Anemia Hypocalcemia and hypernatremia UTI (urinary tract infection) Chronic neck and back pain Urine for tox screen Fluid challenge Monitor electrolytes and chemistries Anemia work-up Per orders Per consultants Donaldo Mandel MD Sep 08, 2019 13:43
--- NOTE | 2019-09-08 15:45 | Consultation ---
DATE OF CONSULTATION: 09/08/2019 INFECTIOUS DISEASE CONSULTATION CONSULTING PHYSICIAN: Lenny Fernandez M.D. PRIMARY ATTENDING PHYSICIAN: Deneen Reyna M.D. REASON FOR CONSULTATION: UTI. HISTORY OF PRESENT ILLNESS: This is a 68-year-old white female admitted yesterday from nursing facility complaining of body pain, neck and lower back pain, who had dysuria in [facility]. No fever. No chills. No other systemic symptoms. PAST MEDICAL HISTORY: Significant for schizophrenia, anemia, hyperlipidemia. ALLERGIES: Allergic to diphenhydramine, penicillin, sulfa drugs, tetracycline, Ambien, but did receive a dose of ceftriaxone in the ER and tolerated it. SOCIAL HISTORY: senior living resident. Single. No history of alcohol, drug abuse, and smoking. REVIEW OF SYSTEMS: No fever. No chills. Has nausea. No vomiting. No dysuria. No coughing. Has headache. No neck pain at this time. PHYSICAL EXAMINATION: VITAL SIGNS: Temperature 97.7, pulse 72, blood pressure 142/69. GENERAL APPEARANCE: No acute distress, well developed. HEAD AND NECK: Oral rash that was present before admission. HEART: Normal rate. LUNGS: Clear. ABDOMEN: Soft, nontender. EXTREMITIES: Has no edema. NEUROLOGIC: She is awake, alert, has constant movement of mouth. LABORATORY DATA: WBC 8.7, hemoglobin 10.7, hematocrit 31.4, platelets 193,000. , potassium 3.6, chloride 110, bicarbonate 20, BUN 12, creatinine 0.6, glucose 85. Albumin is 3.3. UA showed rbc's of 10 to 15, wbc of 5 to 10, blood positive, ketone positive. Urine culture is pending. Chest x-ray was negative. IMPRESSION: Pyuria and dysuria, may have UTI. The patient has schizophrenia, anemia, hyperlipidemia. RECOMMENDATION: Continue ceftriaxone. We will follow up the culture at the end of my exam. I thank Dr. Reyna for involving me in the care of this patient. Lenny Fernandez M.D. DR: OLEG JOB#: [id number] CC: BRISSA
[2019-09-08 16:00] VITALS: BP 122/61
--- NOTE | 2019-09-08 16:18 | NUR ---
NURSE NOTES: Noted pt screaming for help. Pt could not find the reason for screaming when RN asked pt. stating "You stay with me whine I think the reason why I was screaming" Dr. Syed paged for agitation. Ativan 1mg po TID ordered by Dr. Syed.
[2019-09-08] MEDS: LORazepam 1mg tab ORAL SCH (17:19)
[2019-09-08] MEDS ORDERED: cefTRIAXone 1 GM in D5W 55 ML IVPB SCH (18:00)
--- NOTE | 2019-09-08 18:50 | NUR ---
NURSE NOTES: No adverse reaction noted from IV Rocephin
--- NOTE | 2019-09-08 19:08 | Psych Consult Progress Note ---
Psychiatry Progress Note Psychiatry Progress Note Subjective the pt is yelling for no clear reason and is easily agitated Medications Current Medications Medications (Trade) Dose Ordered Sig/Chen Route PRN Reason Start Time Stop Time Status Last Admin Dose Admin Acetaminophen (Tylenol) 650 mg Q4H PRN ORAL Mild Pain/Temp > 100.5 09/08/19 11:42 10/07/19 11:41 Ceftriaxone Sodium 1 gm/ Dextrose 55 ml @ 110 mls/hr Q24H IVPB 09/08/19 18:00 09/15/19 17:59 09/08/19 17:19 Lorazepam (Ativan) 1 mg THREE TIMES A DAY ORAL 09/08/19 18:00 09/15/19 17:59 09/08/19 17:19 Mirtazapine (Remeron) 15 mg BEDTIME ORAL 09/07/19 22:00 12/06/19 21:59 09/07/19 22:11 Risperidone (RisperDAL) 1 mg DAILY ORAL 09/08/19 09:00 10/23/19 08:59 09/08/19 08:46 Allergies: Coded Allergies: DIPHENHYDRAMINE (Verified Allergy, Unknown, 09/07/19) PENICILLINS (Verified Allergy, Unknown, 09/07/19) SULFA (SULFONAMIDE ANTIBIOTICS) (Verified Allergy, Unknown, 09/07/19) SULFAMETHOXAZOLE (Verified Allergy, Unknown, 09/07/19) Shrimp (Verified Allergy, Unknown, 09/07/19) TETRACYCLINES (Verified Allergy, Unknown, 09/07/19) TRIMETHOPRIM (Verified Allergy, Unknown, 09/07/19) ZOLPIDEM (Verified Allergy, Unknown, 09/07/19) Objective Data Height (Feet): 5 Height (Inches): 2.00 Weight (Pounds): 143 General Appearance: WD/WN, alert, agitated, overweight, alert oriented x3 Appearance: no abnormalities noted Behavior Mannerisms: poor eye contact Mental Status Exam - Mood: anxious, agitated Speech: clear Mental Status Exam - Thought P: tangential Mental Status Exam - Suicidal: not present Additional Comments: oriented times self, place, situation. Mood is depressed. Affect is blunted. Congruent with mood. Thought process is concrete. Thought content, no suicidal or homicidal ideation. Cognition is impaired. Insight and judgment impaired. Assessment/Plan [place] I: ASSESSMENT: [place] I Schizophrenia. Cognitive impairment Assessment/Plan: PLAN: 1. Remeron 15 mg at bedtime. 2. Risperidone 1 mg in the morning. 3. Provide the patient with reality orientation. Taty Syed MD Sep 08, 2019 19:08
--- NOTE | 2019-09-08 19:24 | NUR ---
HAND-OFF: Report given to Deepak TANNER. Pt remains stable.
--- NOTE | 2019-09-08 19:25 | NUR ---
NURSE NOTES: Received patient from FLORES Rojas. Patient is aaox 3, vss, no acute distress. Patient is cleaned, cooperative, and on preparing box tender. Wounds noted, right forearm 18g, and patient on room air. Bed is at its lowest position, call light in reach and x3 bed rails are up. Will continue to monitor.
[2019-09-08 20:00] VITALS: BP 127/77
--- NOTE | 2019-09-08 20:11 | Cardiology Progress Note ---
Assessment/Plan Assessment/Plan The patient is seen and examined, full consult note will be dictated. Objective Last 24 Hour Vital Signs Date Time Temp Pulse Resp B/P (MAP) Pulse Ox O2 Delivery O2 Flow Rate FiO2 09/08/19 16:00 Room Air 09/08/19 16:00 97.6 78 18 122/61 (81) 97 09/08/19 15:59 126 09/08/19 12:00 97.6 70 18 98/51 (67) 97 09/08/19 12:00 86 09/08/19 12:00 Room Air 09/08/19 08:00 126 09/08/19 08:00 Room Air 09/08/19 07:40 97.7 72 22 142/69 (93) 97 09/08/19 04:00 Room Air 09/08/19 04:00 97.8 60 20 92/53 (66) 98 09/08/19 03:34 62 09/08/19 00:00 57 09/08/19 00:00 97.9 125 22 153/110 (124) 98 09/08/19 00:00 Room Air 09/07/19 22:30 Room Air Intake and Output 09/07/19 09/08/19 19:00 07:00 Intake Total 2055 ml 240 ml Balance 2055 ml 240 ml Intake Oral 0 ml 240 ml IV Total 2055 ml # Voids 2 Laboratory Tests Test 09/08/19 04:00 09/08/19 14:00 White Blood Count 8.7 K/UL (4.8-10.8) Red Blood Count 3.59 M/UL (4.20-5.40) L Hemoglobin 10.7 G/DL (12.0-16.0) L Hematocrit 31.4 % (37.0-47.0) L Mean Corpuscular Volume 88 FL (80-99) Mean Corpuscular Hemoglobin 29.9 PG (27.0-31.0) Mean Corpuscular Hemoglobin Concent 34.2 G/DL (32.0-36.0) Red Cell Distribution Width 14.0 % (11.6-14.8) Platelet Count 193 K/UL (150-450) Mean Platelet Volume 4.9 FL (6.5-10.1) L Neutrophils (%) (Auto) % (45.0-75.0) Lymphocytes (%) (Auto) % (20.0-45.0) Monocytes (%) (Auto) % (1.0-10.0) Eosinophils (%) (Auto) % (0.0-3.0) Basophils (%) (Auto) % (0.0-2.0) Sodium Level 147 MMOL/L (136-145) H Potassium Level 3.6 MMOL/L (3.5-5.1) Chloride Level 110 MMOL/L (98-107) H Carbon Dioxide Level 20 MMOL/L (21-32) L Anion Gap 17 mmol/L (5-15) H Blood Urea Nitrogen 12 mg/dL (7-18) Creatinine 0.6 MG/DL (0.55-1.30) Estimat Glomerular Filtration Rate > 60 mL/min (>60) Glucose Level 85 MG/DL (74-106) Calcium Level 7.6 MG/DL (8.5-10.1) L Total Bilirubin 0.3 MG/DL (0.2-1.0) Aspartate Amino Transf (AST/SGOT) 13 U/L (15-37) L Alanine Aminotransferase (ALT/SGPT) 15 U/L (12-78) Alkaline Phosphatase 40 U/L (46-116) L Total Protein 6.0 G/DL (6.4-8.2) L Albumin 3.3 G/DL (3.4-5.0) L Globulin 2.7 g/dL Albumin/Globulin Ratio 1.2 (1.0-2.7) Urine Opiates Screen Negative (NEGATIVE) Urine Barbiturates Screen Negative (NEGATIVE) Phencyclidine (PCP) Screen Negative (NEGATIVE) Urine Amphetamines Screen Negative (NEGATIVE) Urine Benzodiazepines Screen Negative (NEGATIVE) Urine Cocaine Screen Negative (NEGATIVE) Urine Marijuana (THC) Screen Negative (NEGATIVE) Microbiology Date/Time Source Procedure Growth Status 09/07/19 16:46 Urine,Clean Catch Urine Culture - Preliminary Resulted 09/07/19 17:24 Rectal Mucosa Received Jorje Sosa MD Sep 08, 2019 20:11
--- NOTE | 2019-09-08 20:29 | Consultation ---
DATE OF CONSULTATION: 09/08/2019 PAIN MANAGEMENT CONSULTATION CONSULTING PHYSICIAN: Jose Alberto Rivas M.D. REFERRING PHYSICIAN: Deneen Reyna M.D. PHYSICIAN AMBULATORY SERVICE REPRESENTATIVE: Daljit Meza CHIEF COMPLAINT: Generalized body pain. HISTORY OF PRESENT ILLNESS: This is a 68-year-old female, who is being seen in the step down unit of [facility] for initial pain management consultation. The patient was admitted under the care of Dr. Reyna due to hypotension and is being followed by consultants for this issue and also being ruled out for COVID-19. She was transferred from a halfway facility due to increased body pain. She is complaining of abdominal pain, some dizziness, and headaches at times. Describing the pain as an aching pain, increasing with movement and reduced with medication. The patient is a poor historian. Most of the information was received from the chart and from the nurse. She is on Tylenol 650 mg tablet every 4 hours as needed for pain, which has been helping to relieve the patient's pain to a tolerable level. We were consulted so the patient would have adequate pain control while here in the hospital. PAST MEDICAL HISTORY: Chronic pain, schizophrenia, and chronic weakness, which is generalized. SOCIAL HISTORY: As per chart, no history of smoking tobacco, drinking alcohol, or drug use. ALLERGIES: Benadryl, penicillin, sulfa, shrimp, tetracycline, and Ambien. REVIEW OF SYSTEMS: She is complaining of generalized body pain with headache and dizziness. PHYSICAL EXAMINATION: GENERAL: Alert. VITAL SIGNS: Blood pressure 142/69, heart rate 72, oxygen saturation 97%, respiratory rate 22, and temperature 97 degrees Fahrenheit. HEENT: PERRLA. NECK: Range of motion is decreased due to the patient condition. No tenderness to paracervical muscles. No adenopathy. LUNGS: Decreased breath sounds bilaterally. HEART: S1 and S2, regular. ABDOMEN: Tenderness to palpation. BACK: Range of motion is decreased due to the patient's condition. EXTREMITIES: Upper and lower extremity range of motion is decreased due to the patient's condition. No cyanosis. No clubbing. Sensory is reduced. Reflexes are not obtainable. No adenopathy. ASSESSMENT AND PLAN: This is a 68-year-old female with degenerative joint disease and multiple joint pain. The patient will be continued on Tylenol as needed. The patient was discussed with Dr. Rivas and Dr. Rivas concurred. We will follow the patient. Thank you very much for the courtesy of this consultation. Jose Alberto Rivas M.D. SYLVESTER Meza DR: APOLINAR JOB#: [id number] CC: BRISSA
--- NOTE | 2019-09-08 22:00 | Consultation ---
DATE OF CONSULTATION: 09/08/2019 CARDIOLOGY CONSULTATION CONSULTING PHYSICIAN: Jorje Sosa M.D. REFERRING PHYSICIAN: Deneen Reyna M.D. REASON FOR CONSULTATION: Management of hypotension. HISTORY OF PRESENT ILLNESS: The patient is a very unfortunate 68-year-old female, who presents to the hospital with complaints of lower back pain as well as neck pain. The patient has history of chronic pain syndrome and she is suffering from schizophrenia as well. Her past medical history is significant for schizophrenia, anemia, and hyperlipidemia. Allergies to diphenhydramine, penicillin, sulfa drugs, tetracycline. At the time of arrival to this facility, the patient was not febrile with temperature of 98.1 degrees Fahrenheit. Blood pressure however was significantly low at 82/51 mmHg. The patient did not have any chest pain or shortness of breath. Initial workup in the emergency department included blood tests, which is significant for increased serum sodium consistent with free water deficit. Her troponin I level was negative at 0.013 and pro brain natriuretic peptide at 97. The patient was admitted to [facility] for further evaluation and management. Cardiology consultation was made at the request of Dr. Reyna for management of hypotension. In the emergency department, the patient also had chest x-ray which showed no acute cardiopulmonary disease. A 12-lead electrocardiogram was significant for normal sinus rhythm with no acute ischemic features. PAST MEDICAL HISTORY: Includes schizophrenia, anemia, and hyperlipidemia. PAST SURGICAL HISTORY: None. MEDICATIONS: List of medications including amlodipine 5 mg p.o. daily, apixaban 2.5 mg twice a day, Artificial Tears, Zyrtec 10 mg p.o. daily, Voltaren 100 grams topical application twice daily, Lexapro 10 mg p.o. daily, fluticasone propionate 1 spray daily, gabapentin 100 mg daily, [place] 5/325 one tablet q.4 h. p.r.n. pain, Motrin 200 mg 4 times a day, probiotic 1 tablet daily, lactulose 30 mL daily, Ativan 1 mg 3 times a day, melatonin 3 mg 1 tab daily, multivitamin 1 tablet p.o. daily, Zyprexa 7.5 mg daily, MiraLAX 17 g p.o. at bedtime p.r.n. constipation, Senna 8.6 mg p.o. daily, and valbenazine tosylate 1 each p.o. ALLERGIES: Diphenhydramine, penicillin, sulfa, tetracycline, and Ambien. SOCIAL HISTORY: Resident of a detention facility. There is no history of tobacco, alcohol, or illicit drug use. REVIEW OF SYSTEMS: HEENT: Denies any headache, diplopia, or blurred vision. CONSTITUTIONAL: Denies any fever, chills, night sweats, or weight loss. CARDIOVASCULAR: Denies any chest pain, shortness of breath, PND, orthopnea, or leg swelling. PULMONARY: Denies any cough, hemoptysis, or wheezing. GASTROINTESTINAL: Denies any nausea, vomiting, diarrhea, constipation, abdominal pain, or GI bleed. GENITOURINARY: Denies any hematuria, dysuria, or incontinence. NEUROLOGY: Denies any motor dysfunction, sensory deficit, or altered speech. MUSCULOSKELETAL: Complaining of back pain as well as neck pain. PSYCH: History of schizophrenia and history of GI bleed in the past. PHYSICAL EXAMINATION: VITAL SIGNS: Blood pressure is 82/51 mmHg, pulse of 65, respirations of 18, temperature 98.1 degrees Fahrenheit, and O2 saturation of 94% on room air. GENERAL: The patient is a very unfortunate 68-year-old female, in no apparent respiratory distress. Alert and oriented x4. HEENT: Atraumatic and normocephalic. Anicteric. Pupils are equal, round, and reactive to light and accommodation. Extraocular muscles intact. NECK: JVP less than 5 cm. No carotid bruit. Carotid upstrokes 2+ bilaterally. CARDIOVASCULAR: Normal S1, S2. Regular rate and rhythm. No murmurs, gallops, or rubs. PMI is at fourth intercostal space in the midclavicular line. LUNGS: Clear to auscultation bilaterally. ABDOMEN: Soft, nontender, and nondistended. No hepatosplenomegaly. Positive bowel sounds. EXTREMITIES: No evidence of edema, clubbing, or cyanosis. LABORATORY FINDINGS: Sodium was 142, potassium is 4.0, chloride 105, bicarbonate 29, BUN of 18, creatinine 0.5, and glucose 85. Calcium is 8.3. Magnesium 2.3. Troponin I level 0.013. ProBNP was 97. Toxicology, urine negative. CBC, WBC 7.4, hemoglobin 11.9, hematocrit of 35.4, and platelet count is 219,000. INR was 1.1. ASSESSMENT AND PLAN: The patient is a very unfortunate 68-year-old female, seen in Cardiology consultation. 1. Hypotension. This responded well to intravenous fluid expansion. Continue fluid therapy in view of the patient's volume deficit and hypovolemia. The latest blood pressure is 127/77 mmHg following sodium chloride administration. The patient also received D5 water 500 mL IV x1 by Dr. Mandel. 2. We would like to obtain 2D echocardiography for assessment of LV systolic function in view of hypotension. 3. Questionable DVT versus paroxysmal atrial fibrillation. Given the patient being on Eliquis, the reason and etiology of this is not clear. We would like to continue Eliquis 2.5 mg twice a day. I would like to thank, Dr. Reyna, for the courtesy of this consultation. Jorje Sosa M.D. DR: SIMON JOB#: [id number] CC:
[2019-09-09] VITALS (7 sets, daily range): BP systolic 114–147; BP diastolic 75–97
--- NOTE | 2019-09-09 00:44 | History and Physical Report ---
DATE OF ADMISSION: 09/07/2019 HISTORY OF PRESENT ILLNESS: Patient does have history of psychiatric history. She is being admitted for sepsis workup, initial hypotension. COVID test already sent. Patient also being admitted for UTI as well. Patient also complained of generalized pain. She has chronic pain and has history of schizophrenia. Pain is generalized. Patient also has complained of mild abdominal pain. Denied nausea, vomiting, or diarrhea. Denied sore throat. Denied cough. Denied wheezing. PAST MEDICAL HISTORY: Significant for schizophrenia. Patient also has a history of depression. Patient also has a history of chronic pain syndrome, insomnia, psychosis, constipation, and mood disorder. PAST SURGICAL HISTORY: Denied. ALLERGIES: To diphenhydramine, penicillin, sulfa, tetracycline, shrimp, zolpidem. MEDICATIONS: Eliquis, amlodipine, gabapentin, Zyprexa, polyethylene glycol, and Senokot. FAMILY HISTORY: Noncontributory. SOCIAL HISTORY: Denies history of smoking. Denies history of alcohol abuse. Currently comes from a facility. REVIEW OF SYSTEMS: HEENT: Denies headaches RESPIRATORY: Denies shortness of breath. Denies cough. CARDIOVASCULAR: Denies chest pain. GASTROINTESTINAL: Denies nausea, vomiting, or diarrhea. Does have occasional heartburn. Does have generalized pain. CENTRAL NERVOUS SYSTEM: Denies changes in speech pattern, feels weak. PHYSICAL EXAMINATION: VITAL SIGNS: Temperature 97.2, pulse 72, and blood pressure 140/69. HEENT: PERRLA. NECK: Supple. No lymphadenopathy. CHEST: Clear to auscultation. CARDIOVASCULAR: Regular rate and rhythm. No murmurs or extra sounds. GASTROINTESTINAL: Soft, nontender, and nondistended. No organomegaly. EXTREMITIES: No edema. Moves all four extremities. CENTRAL NERVOUS SYSTEM: Sensory intact to light touch. Reflexes equal on both sides. . LABORATORY DATA: WBC 7.4, hemoglobin 11.9, and platelets 219. Sodium 142, potassium 4, BUN of 18, creatinine 0.5. Glucose of 85. Troponin of 0.013. ASSESSMENT AND PLAN: Initial hypotension and tachycardia. I have consulted Dr. Sosa for that reason. Also for chronic pain syndrome, I have consulted Dr. Rivas, and I have also consulted Dr. Mandel, Dr. Lenny Fernandez, and Dr. Syed to rule out COVID as well as for the management of the UTI as well as for the management of the hypotension as well. Patient also has history of schizophrenia and agitation. Dr. Syed is consulted for that reason. For the management of the Dr. Lenny Fernandez. Deneen Reyna M.D. DR: TAD JOB#: [id number] CC:
[2019-09-09 06:32] LABS: BASOPHILS % (AUTO) 1.3 % (0.0-2.0); EOSINOPHILS % (AUTO) 1.3 % (0.0-3.0); HEMATOCRIT 38.1 % (37.0-47.0); HEMOGLOBIN 12.7 G/DL (12.0-16.0); LYMPHOCYTES % (AUTO) 31.9 % (20.0-45.0); MEAN CORPUSCULAR VOLUME 88 FL (80-99); NEUTROPHILS % (AUTO) 56.5 % (45.0-75.0); PLATELET COUNT 199 K/UL (150-450); RED BLOOD COUNT 4.32 M/UL (4.20-5.40); RED CELL DISTRIBUTION WIDTH 14.3 % (11.6-14.8); WHITE BLOOD COUNT 5.6 K/UL (4.8-10.8)
[2019-09-09 07:11] LABS: PHOSPHORUS 2.6 MG/DL (2.5-4.9)
[2019-09-09 07:19] LABS: ALANINE AMINOTRANSFERASE 17 U/L (12-78); ALBUMIN 3.6 G/DL (3.4-5.0); ALBUMIN/GLOBULIN RATIO 1.1 (1.0-2.7); ALKALINE PHOSPHATASE 44 U/L (46-116); ANION GAP 16 mmol/L (5-15); ASPARTATE AMINO TRANSFERASE 16 U/L (15-37); BILIRUBIN,TOTAL 0.3 MG/DL (0.2-1.0); BLOOD UREA NITROGEN 9 mg/dL (7-18); CALCIUM 8.1 MG/DL (8.5-10.1); CARBON DIOXIDE 22 MMOL/L (21-32); CHLORIDE 110 MMOL/L (98-107); CREATININE 0.6 MG/DL (0.55-1.30); FERRITIN 49 NG/ML (8-388); POTASSIUM 3.3 MMOL/L (3.5-5.1); SODIUM 147 MMOL/L (136-145)
--- NOTE | 2019-09-09 07:20 | NUR ---
NURSE NOTES: Received report RN Deepak,patient resting quiet,breathing regular,easy,head elevated,moving her mouth up/down,continue care,observe contact,and droplet isolation R/O Covid,waiting for result,continue care
--- NOTE | 2019-09-09 07:20 | NUR ---
HAND-OFF: Report given to FLORES Hansen.
[2019-09-09 08:35] LABS: % IRON SATURATION 18 % (15-50); IRON 49 ug/dL (50-175); TOTAL IRON BINDING CAPACITY 280 ug/dL (250-450)
[2019-09-09] MEDS: LORazepam 1mg tab ORAL SCH ×3 (08:50→18:24)
--- NOTE | 2019-09-09 11:25 | NUR ---
NURSE NOTES: patient Covid result negative,Dr. Cuong Fernandez,Dr. Mairbell swann,[facility] isolation,will transfer to Med/Surg Addendum: 09/09/19 at 1433 by Jade Castillo RN Patient notified transfer
--- NOTE | 2019-09-09 11:57 | Nephrology Progress Note ---
Assessment/Plan Problem List: (1) Hypotension Assessment: Resolved (2) Electrolyte imbalance (3) Hypocalcemia Assessment Episodic hypotension Anemia Hypocalcemia and hypernatremia UTI (urinary tract infection) Chronic neck and back pain Plan Urine for tox screen negative Fluid challenge Monitor electrolytes and chemistries Anemia work-up Per orders Per consultants Subjective ROS Limited/Unobtainable: No Constitutional: Reports: malaise, weakness Objective Objective Last 24 Hour Vital Signs Date Time Temp Pulse Resp B/P (MAP) Pulse Ox O2 Delivery O2 Flow Rate FiO2 09/09/19 06:29 98.0 09/09/19 04:00 Room Air 09/09/19 04:00 63 09/09/19 04:00 98.0 84 17 142/92 (109) 96 09/09/19 00:00 98.0 68 18 134/79 (97) 92 09/09/19 00:00 Room Air 09/09/19 00:00 81 09/08/19 20:00 Room Air 09/08/19 20:00 97.8 72 19 127/77 (94) 95 09/08/19 16:00 Room Air 09/08/19 16:00 97.6 78 18 122/61 (81) 97 09/08/19 15:59 126 09/08/19 12:00 97.6 70 18 98/51 (67) 97 09/08/19 12:00 86 09/08/19 12:00 Room Air Intake and Output 09/08/19 09/09/19 19:00 07:00 Intake Total 1155 ml 1000 ml Output Total 1000 ml 800 ml Balance 155 ml 200 ml Intake Oral 600 ml 1000 ml IV Total 555 ml Output Urine Total 1000 ml 800 ml Laboratory Tests 09/08/19 14:00: Urine Opiates Screen Negative, Urine Barbiturates Screen Negative, Phencyclidine (PCP) Screen Negative, Urine Amphetamines Screen Negative, Urine Benzodiazepines Screen Negative, Urine Cocaine Screen Negative, Urine Marijuana (THC) Screen Negative 09/09/19 06:11: White Blood Count 5.6, Red Blood Count 4.32, Hemoglobin 12.7, Hematocrit 38.1, Mean Corpuscular Volume 88, Mean Corpuscular Hemoglobin 29.4, Mean Corpuscular Hemoglobin Concent 33.3, Red Cell Distribution Width 14.3, Platelet Count 199, Mean Platelet Volume 4.7L, Neutrophils (%) (Auto) 56.5, Lymphocytes (%) (Auto) 31.9, Monocytes (%) (Auto) 9.0, Eosinophils (%) (Auto) 1.3, Basophils (%) (Auto ) 1.3, Sodium Level 147H, Potassium Level 3.3L, Chloride Level 110H, Carbon Dioxide Level 22, Anion Gap 16H, Blood Urea Nitrogen 9, Creatinine 0.6, Estimat Glomerular Filtration Rate > 60, Glucose Level 88, Uric Acid 4.5, Calcium Level 8.1L, Phosphorus Level 2.6, Magnesium Level 2.3, Iron Level 49L, Total Iron Binding Capacity 280, Percent Iron Saturation 18, Unsaturated Iron Binding 231, Ferritin 49, Total Bilirubin 0.3, Aspartate Amino Transf (AST/SGOT) 16, Alanine Aminotransferase (ALT/SGPT) 17, Alkaline Phosphatase 44L, C-Reactive Protein, Quantitative < 0.4, Pro-B-Type Natriuretic Peptide 265H, Total Protein 6.8, Albumin 3.6, Globulin 3.2, Albumin/Globulin Ratio 1.1, Vitamin B12 Level 551, Folate 6.5L Height (Feet): 5 Height (Inches): 2.00 Weight (Pounds): 143 General Appearance: no apparent distress, lethargic Cardiovascular: normal rate Respiratory/Chest: decreased breath sounds Abdomen: distended Donaldo Mandel MD Sep 09, 2019 11:57
--- NOTE | 2019-09-09 12:27 | General Progress Note ---
Assessment/Plan Assessment/Plan: (1) Degenerative joint disease (2) Multiple joint pain Patient to be continued on Tylenol as needed. D/w Dr. Rivas and he concurred. Subjective Date patient seen: Sep 09, 2019 Time patient seen: 11:00 - am Constitutional: Reports: weakness HEENT: Reports: no symptoms Cardiovascular: Reports: no symptoms Respiratory: Reports: shortness of breath Gastrointestinal/Abdominal: Reports: no symptoms Genitourinary: Reports: no symptoms Neurologic/Psychiatric: Reports: depressed, weakness Endocrine: Reports: no symptoms Hematologic/Lymphatic: Reports: no symptoms Allergies: Coded Allergies: DIPHENHYDRAMINE (Verified Allergy, Unknown, 09/07/19) PENICILLINS (Verified Allergy, Unknown, 09/07/19) SULFA (SULFONAMIDE ANTIBIOTICS) (Verified Allergy, Unknown, 09/07/19) SULFAMETHOXAZOLE (Verified Allergy, Unknown, 09/07/19) Shrimp (Verified Allergy, Unknown, 09/07/19) TETRACYCLINES (Verified Allergy, Unknown, 09/07/19) TRIMETHOPRIM (Verified Allergy, Unknown, 09/07/19) ZOLPIDEM (Verified Allergy, Unknown, 09/07/19) Subjective In bed no signs of pain or distress. Pain is tolerated on the Tylenol Objective Last 24 Hour Vital Signs Date Time Temp Pulse Resp B/P (MAP) Pulse Ox O2 Delivery O2 Flow Rate FiO2 09/09/19 06:29 98.0 09/09/19 04:00 Room Air 09/09/19 04:00 63 09/09/19 04:00 98.0 84 17 142/92 (109) 96 09/09/19 00:00 98.0 68 18 134/79 (97) 92 09/09/19 00:00 Room Air 09/09/19 00:00 81 09/08/19 20:00 Room Air 09/08/19 20:00 97.8 72 19 127/77 (94) 95 09/08/19 16:00 Room Air 09/08/19 16:00 97.6 78 18 122/61 (81) 97 09/08/19 15:59 126 Intake and Output 09/08/19 09/09/19 19:00 07:00 Intake Total 1155 ml 1000 ml Output Total 1000 ml 800 ml Balance 155 ml 200 ml Intake Oral 600 ml 1000 ml IV Total 555 ml Output Urine Total 1000 ml 800 ml Laboratory Tests 09/08/19 14:00: Urine Opiates Screen Negative, Urine Barbiturates Screen Negative, Phencyclidine (PCP) Screen Negative, Urine Amphetamines Screen Negative, Urine Benzodiazepines Screen Negative, Urine Cocaine Screen Negative, Urine Marijuana (THC) Screen Negative 09/09/19 06:11: White Blood Count 5.6, Red Blood Count 4.32, Hemoglobin 12.7, Hematocrit 38.1, Mean Corpuscular Volume 88, Mean Corpuscular Hemoglobin 29.4, Mean Corpuscular Hemoglobin Concent 33.3, Red Cell Distribution Width 14.3, Platelet Count 199, Mean Platelet Volume 4.7L, Neutrophils (%) (Auto) 56.5, Lymphocytes (%) (Auto) 31.9, Monocytes (%) (Auto) 9.0, Eosinophils (%) (Auto) 1.3, Basophils (%) (Auto ) 1.3, Sodium Level 147H, Potassium Level 3.3L, Chloride Level 110H, Carbon Dioxide Level 22, Anion Gap 16H, Blood Urea Nitrogen 9, Creatinine 0.6, Estimat Glomerular Filtration Rate > 60, Glucose Level 88, Uric Acid 4.5, Calcium Level 8.1L, Phosphorus Level 2.6, Magnesium Level 2.3, Iron Level 49L, Total Iron Binding Capacity 280, Percent Iron Saturation 18, Unsaturated Iron Binding 231, Ferritin 49, Total Bilirubin 0.3, Aspartate Amino Transf (AST/SGOT) 16, Alanine Aminotransferase (ALT/SGPT) 17, Alkaline Phosphatase 44L, C-Reactive Protein, Quantitative < 0.4, Pro-B-Type Natriuretic Peptide 265H, Total Protein 6.8, Albumin 3.6, Globulin 3.2, Albumin/Globulin Ratio 1.1, Vitamin B12 Level 551, Folate 6.5L Height (Feet): 5 Height (Inches): 2.00 Weight (Pounds): 143 General Appearance: no apparent distress EENT: normal ENT inspection Neck: non-tender, normal alignment Cardiovascular: normal rate, regular rhythm Respiratory/Chest: decreased breath sounds Abdomen: non tender, soft Extremities: non-tender Edema: trace edema Neurologic: responsive Skin: normal pigmentation Ricardo Garcia Sep 09, 2019 12:27
--- NOTE | 2019-09-09 13:01 | NUR ---
CELL BIOLOGY SCIENTISTFIELD PLACEMENT DIRECTOR SI: HYPOTENSION T. 98.1 HR 84 RR 17 B/P 134/78 NA 147 K 3.3 BNP 265 COVID 19 - NEGATIVE IS: CEFTRIAXONE IV K-DUR DOWNGRADE TO MED/SURG MED/SURG STATUS
--- NOTE | 2019-09-09 14:08 | Infectious Diseases Prog Note ---
Assessment/Plan Assessment/Plan IMPRESSION: Pyuria and dysuria, ? UTI. Anxiety schizophrenia, anemia, hyperlipidemia. RECOMMENDATION: Continue ceftriaxone Negative COVID-19 test Subjective ROS Limited/Unobtainable: Yes Respiratory: Reports: dry cough Cardiovascular: Reports: no symptoms Gastrointestinal/Abdominal: Reports: no symptoms Genitourinary: Reports: dysuria Psychiatric: Reports: anxiety Allergies: Coded Allergies: DIPHENHYDRAMINE (Verified Allergy, Unknown, 09/07/19) PENICILLINS (Verified Allergy, Unknown, 09/07/19) SULFA (SULFONAMIDE ANTIBIOTICS) (Verified Allergy, Unknown, 09/07/19) SULFAMETHOXAZOLE (Verified Allergy, Unknown, 09/07/19) Shrimp (Verified Allergy, Unknown, 09/07/19) TETRACYCLINES (Verified Allergy, Unknown, 09/07/19) TRIMETHOPRIM (Verified Allergy, Unknown, 09/07/19) ZOLPIDEM (Verified Allergy, Unknown, 09/07/19) Objective Vital Signs Last 24 Hour Vital Signs Date Time Temp Pulse Resp B/P (MAP) Pulse Ox O2 Delivery O2 Flow Rate FiO2 09/09/19 12:00 Room Air 09/09/19 11:47 60 09/09/19 11:47 98.2 76 18 114/87 (96) 98 09/09/19 08:30 Room Air 09/09/19 08:30 98.2 87 18 130/81 (97) 97 09/09/19 07:37 83 09/09/19 06:29 98.0 09/09/19 04:00 Room Air 09/09/19 04:00 63 09/09/19 04:00 98.0 84 17 142/92 (109) 96 09/09/19 00:00 98.0 68 18 134/79 (97) 92 09/09/19 00:00 Room Air 09/09/19 00:00 81 09/08/19 20:00 Room Air 09/08/19 20:00 97.8 72 19 127/77 (94) 95 09/08/19 16:00 Room Air 09/08/19 16:00 97.6 78 18 122/61 (81) 97 09/08/19 15:59 126 Height (Feet): 5 Height (Inches): 2.00 Weight (Pounds): 143 General Appearance: no acute distress HEENT: mucous membranes moist Respiratory/Chest: lungs clear Cardiovascular: normal rate Abdomen: soft, non tender Extremities: no edema Skin: rash, other - perioral Neurologic/Psychiatric: alert, responsive Microbiology Date/Time Source Procedure Growth Status 09/07/19 14:00 Blood Blood Culture - Preliminary NO GROWTH AFTER 24 HOURS Resulted 09/07/19 14:00 Blood Blood Culture - Preliminary NO GROWTH AFTER 24 HOURS Resulted 09/07/19 15:40 Nasopharynx Coronavirus COVID-19 PCR ([place]) - Final Complete 09/07/19 16:46 Urine,Clean Catch Urine Culture - Final Mixed Gram Positive Organism Complete 09/07/19 17:24 Rectal Mucosa Received Laboratory Tests Test 09/09/19 06:11 White Blood Count 5.6 K/UL (4.8-10.8) Red Blood Count 4.32 M/UL (4.20-5.40) Hemoglobin 12.7 G/DL (12.0-16.0) Hematocrit 38.1 % (37.0-47.0) Mean Corpuscular Volume 88 FL (80-99) Mean Corpuscular Hemoglobin 29.4 PG (27.0-31.0) Mean Corpuscular Hemoglobin Concent 33.3 G/DL (32.0-36.0) Red Cell Distribution Width 14.3 % (11.6-14.8) Platelet Count 199 K/UL (150-450) Mean Platelet Volume 4.7 FL (6.5-10.1) L Neutrophils (%) (Auto) 56.5 % (45.0-75.0) Lymphocytes (%) (Auto) 31.9 % (20.0-45.0) Monocytes (%) (Auto) 9.0 % (1.0-10.0) Eosinophils (%) (Auto) 1.3 % (0.0-3.0) Basophils (%) (Auto) 1.3 % (0.0-2.0) Sodium Level 147 MMOL/L (136-145) H Potassium Level 3.3 MMOL/L (3.5-5.1) L Chloride Level 110 MMOL/L (98-107) H Carbon Dioxide Level 22 MMOL/L (21-32) Anion Gap 16 mmol/L (5-15) H Blood Urea Nitrogen 9 mg/dL (7-18) Creatinine 0.6 MG/DL (0.55-1.30) Estimat Glomerular Filtration Rate > 60 mL/min (>60) Glucose Level 88 MG/DL (74-106) Uric Acid 4.5 MG/DL (2.6-7.2) Calcium Level 8.1 MG/DL (8.5-10.1) L Phosphorus Level 2.6 MG/DL (2.5-4.9) Magnesium Level 2.3 MG/DL (1.8-2.4) Iron Level 49 ug/dL (50-175) L Total Iron Binding Capacity 280 ug/dL (250-450) Percent Iron Saturation 18 % (15-50) Unsaturated Iron Binding 231 ug/dL (112-346) Ferritin 49 NG/ML (8-388) Total Bilirubin 0.3 MG/DL (0.2-1.0) Aspartate Amino Transf (AST/SGOT) 16 U/L (15-37) Alanine Aminotransferase (ALT/SGPT) 17 U/L (12-78) Alkaline Phosphatase 44 U/L (46-116) L C-Reactive Protein, Quantitative < 0.4 mg/dL (0.00-0.90) Pro-B-Type Natriuretic Peptide 265 pg/mL (0-125) H Total Protein 6.8 G/DL (6.4-8.2) Albumin 3.6 G/DL (3.4-5.0) Globulin 3.2 g/dL Albumin/Globulin Ratio 1.1 (1.0-2.7) Vitamin B12 Level 551 PG/ML (193-986) Folate 6.5 NG/ML (8.6-58.9) L Current Medications Medications (Trade) Dose Ordered Sig/Chen Route PRN Reason Start Time Stop Time Status Last Admin Dose Admin Acetaminophen (Tylenol) 650 mg Q4H PRN ORAL Mild Pain/Temp > 100.5 09/08/19 11:42 10/07/19 11:41 09/09/19 05:59 Ceftriaxone Sodium 1 gm/ Dextrose 55 ml @ 110 mls/hr Q24H IVPB 09/08/19 18:00 09/15/19 17:59 09/08/19 17:19 Lorazepam (Ativan) 1 mg THREE TIMES A DAY ORAL 09/08/19 18:00 09/15/19 17:59 09/09/19 14:03 Mirtazapine (Remeron) 15 mg BEDTIME ORAL 09/07/19 22:00 12/06/19 21:59 09/08/19 20:26 Potassium Chloride (K-Dur) 40 meq DAILY ORAL 09/09/19 09:00 12/08/19 08:59 09/09/19 09:06 Risperidone (RisperDAL) 1 mg DAILY ORAL 09/08/19 09:00 10/23/19 08:59 09/09/19 09:07 Lenny Fernandez MD Sep 09, 2019 14:08
--- NOTE | 2019-09-09 16:00 | NUR ---
NURSE NOTES: Patient screams at times-nurse,help answered call lights, wants you to stay with her,i talked to her,tell her i'll,be back-she will calm down,no complaints of pain,said im anxious i need my ativan,notified i gave it to her-said OK
--- NOTE | 2019-09-09 16:20 | NUR ---
NURSE NOTES: 1500 Patient informed she is moving to [facility] -408-1,per bed,agree with transfer,stable,thankful of care,calm.
--- NOTE | 2019-09-09 16:42 | NUR ---
NURSE NOTES: Received report from FLORES Hansen in [facility]. Patient A&Ox4, on room air. No signs of distress or labored breathing. IV intact, patent, and saline locked. Bed in lowest position with call light in reach. Will continue with plan of care.
--- NOTE | 2019-09-09 17:33 | NUR ---
HAND-OFF: Report given to Stefania RN4E,patient alert,oriented,conversant,stable,head 30 degrees,siderails up x3,given call light
[2019-09-09] MEDS: cefTRIAXone 1 GM in D5W 55 ML IVPB SCH (18:24)
--- NOTE | 2019-09-09 19:26 | NUR ---
NURSE NOTES: Received report from FLORES Aguiar. Pt is awake, lying semi-morales's; comfortably resting. No signs of acute distress noted. Pt denies any pain at this time. AOx3; able to make needs known. Checked IV site; patent and flushed. No erythema, bleeding, or infiltration noted. Bed at lowest position. Brakes on. Siderails up x2. Call light within reach. Will continue to monitor.
--- NOTE | 2019-09-09 19:26 | NUR ---
HAND-OFF: Report given to Shira Sterling RN. Rounds done.
--- NOTE | 2019-09-09 20:08 | Cardiology Progress Note ---
Assessment/Plan Assessment/Plan 1. Hypotension, responded well to intravenous fluid expansion. 2. Questionable DVT versus paroxysmal atrial fibrillation. Given the patient being on Eliquis, the reason and etiology of this is not clear. Subjective Subjective Transferred to the med-surg unit. No cardiac events reported. Objective Last 24 Hour Vital Signs Date Time Temp Pulse Resp B/P (MAP) Pulse Ox O2 Delivery O2 Flow Rate FiO2 09/09/19 16:40 98.2 74 18 114/75 (88) 96 09/09/19 16:00 98.4 79 20 118/82 (94) 97 09/09/19 12:00 Room Air 09/09/19 11:47 60 09/09/19 11:47 98.2 76 18 114/87 (96) 98 09/09/19 08:30 Room Air 09/09/19 08:30 98.2 87 18 130/81 (97) 97 09/09/19 07:37 83 09/09/19 06:29 98.0 09/09/19 04:00 Room Air 09/09/19 04:00 63 09/09/19 04:00 98.0 84 17 142/92 (109) 96 09/09/19 00:00 98.0 68 18 134/79 (97) 92 09/09/19 00:00 Room Air 09/09/19 00:00 81 Intake and Output 09/08/19 09/09/19 19:00 07:00 Intake Total 1155 ml 1000 ml Output Total 1000 ml 800 ml Balance 155 ml 200 ml Intake Oral 600 ml 1000 ml IV Total 555 ml Output Urine Total 1000 ml 800 ml Laboratory Tests Test 09/09/19 06:11 White Blood Count 5.6 K/UL (4.8-10.8) Red Blood Count 4.32 M/UL (4.20-5.40) Hemoglobin 12.7 G/DL (12.0-16.0) Hematocrit 38.1 % (37.0-47.0) Mean Corpuscular Volume 88 FL (80-99) Mean Corpuscular Hemoglobin 29.4 PG (27.0-31.0) Mean Corpuscular Hemoglobin Concent 33.3 G/DL (32.0-36.0) Red Cell Distribution Width 14.3 % (11.6-14.8) Platelet Count 199 K/UL (150-450) Mean Platelet Volume 4.7 FL (6.5-10.1) L Neutrophils (%) (Auto) 56.5 % (45.0-75.0) Lymphocytes (%) (Auto) 31.9 % (20.0-45.0) Monocytes (%) (Auto) 9.0 % (1.0-10.0) Eosinophils (%) (Auto) 1.3 % (0.0-3.0) Basophils (%) (Auto) 1.3 % (0.0-2.0) Sodium Level 147 MMOL/L (136-145) H Potassium Level 3.3 MMOL/L (3.5-5.1) L Chloride Level 110 MMOL/L (98-107) H Carbon Dioxide Level 22 MMOL/L (21-32) Anion Gap 16 mmol/L (5-15) H Blood Urea Nitrogen 9 mg/dL (7-18) Creatinine 0.6 MG/DL (0.55-1.30) Estimat Glomerular Filtration Rate > 60 mL/min (>60) Glucose Level 88 MG/DL (74-106) Uric Acid 4.5 MG/DL (2.6-7.2) Calcium Level 8.1 MG/DL (8.5-10.1) L Phosphorus Level 2.6 MG/DL (2.5-4.9) Magnesium Level 2.3 MG/DL (1.8-2.4) Iron Level 49 ug/dL (50-175) L Total Iron Binding Capacity 280 ug/dL (250-450) Percent Iron Saturation 18 % (15-50) Unsaturated Iron Binding 231 ug/dL (112-346) Ferritin 49 NG/ML (8-388) Total Bilirubin 0.3 MG/DL (0.2-1.0) Aspartate Amino Transf (AST/SGOT) 16 U/L (15-37) Alanine Aminotransferase (ALT/SGPT) 17 U/L (12-78) Alkaline Phosphatase 44 U/L (46-116) L C-Reactive Protein, Quantitative < 0.4 mg/dL (0.00-0.90) Pro-B-Type Natriuretic Peptide 265 pg/mL (0-125) H Total Protein 6.8 G/DL (6.4-8.2) Albumin 3.6 G/DL (3.4-5.0) Globulin 3.2 g/dL Albumin/Globulin Ratio 1.1 (1.0-2.7) Vitamin B12 Level 551 PG/ML (193-986) Folate 6.5 NG/ML (8.6-58.9) L Microbiology Date/Time Source Procedure Growth Status 09/07/19 14:00 Blood Blood Culture - Preliminary NO GROWTH AFTER 24 HOURS Resulted 09/07/19 14:00 Blood Blood Culture - Preliminary NO GROWTH AFTER 24 HOURS Resulted 09/07/19 15:40 Nasopharynx Coronavirus COVID-19 PCR ([place]) - Final Complete 09/07/19 16:46 Urine,Clean Catch Urine Culture - Final Mixed Gram Positive Organism Complete 09/07/19 17:24 Rectal Mucosa Received Objective HEENT: Atraumatic and normocephalic. Anicteric. Pupils are equal, round, and reactive to light and accommodation. Extraocular muscles intact. NECK: JVP less than 5 cm. No carotid bruit. Carotid upstrokes 2+ bilaterally. CARDIOVASCULAR: Normal S1, S2. Regular rate and rhythm. No murmurs, gallops, or rubs. PMI is at fourth intercostal space in the midclavicular line. LUNGS: Clear to auscultation bilaterally. ABDOMEN: Soft, nontender, and nondistended. No hepatosplenomegaly. Positive bowel sounds. EXTREMITIES: No evidence of edema, clubbing, or cyanosis. Jorje Sosa MD Sep 09, 2019 20:08
--- NOTE | 2019-09-09 21:43 | Psych Consult Progress Note ---
Psychiatry Progress Note Psychiatry Progress Note Medications Current Medications Medications (Trade) Dose Ordered Sig/Chen Route PRN Reason Start Time Stop Time Status Last Admin Dose Admin Acetaminophen (Tylenol) 650 mg Q4H PRN ORAL MILD PAIN/FEVER 09/09/19 16:26 10/07/19 16:25 Ceftriaxone Sodium 1 gm/ Dextrose 55 ml @ 110 mls/hr Q24H IVPB 09/09/19 18:00 09/15/19 17:59 09/09/19 18:24 Lorazepam (Ativan) 1 mg THREE TIMES A DAY ORAL 09/09/19 18:00 09/15/19 17:59 09/09/19 18:24 Mirtazapine (Remeron) 15 mg BEDTIME ORAL 09/09/19 21:00 12/06/19 21:59 09/09/19 20:18 Potassium Chloride (K-Dur) 40 meq DAILY ORAL 09/10/19 09:00 12/08/19 08:59 Risperidone (RisperDAL) 1 mg DAILY ORAL 09/10/19 09:00 10/23/19 08:59 Neurological/Psychiatric: Reports: anxiety, depressed, emotional problems Allergies: Coded Allergies: DIPHENHYDRAMINE (Verified Allergy, Unknown, 09/07/19) PENICILLINS (Verified Allergy, Unknown, 09/07/19) SULFA (SULFONAMIDE ANTIBIOTICS) (Verified Allergy, Unknown, 09/07/19) SULFAMETHOXAZOLE (Verified Allergy, Unknown, 09/07/19) Shrimp (Verified Allergy, Unknown, 09/07/19) TETRACYCLINES (Verified Allergy, Unknown, 09/07/19) TRIMETHOPRIM (Verified Allergy, Unknown, 09/07/19) ZOLPIDEM (Verified Allergy, Unknown, 09/07/19) Objective Data Height (Feet): 5 Height (Inches): 2.00 Weight (Pounds): 143 General Appearance: WD/WN, no apparent distress, alert, alert oriented x3 Additional Comments: oriented times self, place, situation. Mood is depressed. Affect is blunted. Congruent with mood. Thought process is concrete. Thought content, no suicidal or homicidal ideation. Cognition is impaired. Insight and judgment impaired. Assessment/Plan Assessment/Plan: PLAN: 1. Remeron 15 mg at bedtime. 2. Risperidone 1 mg in the morning. 3. Provide the patient with reality orientation. Taty Syed MD Sep 09, 2019 21:43
--- NOTE | 2019-09-09 23:10 | General Progress Note ---
Assessment/Plan Problem List: (1) UTI (urinary tract infection) ICD Codes: N39.0 - Urinary tract infection, site not specified SNOMED: 23539993, 130844667, 5055697291677 Qualifiers: Qualified Codes: N39.0 - Urinary tract infection, site not specified (2) Transient hypotension ICD Codes: I95.9 - Hypotension, unspecified SNOMED: 07681694244841 (3) Chronic neck and back pain ICD Codes: M54.2 - Cervicalgia; M54.9 - Dorsalgia, unspecified; G89.29 - Other chronic pain SNOMED: 53131418, 998573819, 2583561988745 (4) Hypotension ICD Codes: I95.9 - Hypotension, unspecified SNOMED: 41958178 Qualifiers: Qualified Codes: I95.89 - Other hypotension (5) Electrolyte imbalance ICD Codes: E87.8 - Other disorders of electrolyte and fluid balance, not elsewhere classified SNOMED: 848753530 (6) Hypocalcemia ICD Codes: E83.51 - Hypocalcemia SNOMED: 7458137 Status: progressing Assessment/Plan: sepsis hypotension improved tachy resolved afebrile abx per id clinically improving reviewed chart and labs Subjective ROS Limited/Unobtainable: Yes Allergies: Coded Allergies: DIPHENHYDRAMINE (Verified Allergy, Unknown, 09/07/19) PENICILLINS (Verified Allergy, Unknown, 09/07/19) SULFA (SULFONAMIDE ANTIBIOTICS) (Verified Allergy, Unknown, 09/07/19) SULFAMETHOXAZOLE (Verified Allergy, Unknown, 09/07/19) Shrimp (Verified Allergy, Unknown, 09/07/19) TETRACYCLINES (Verified Allergy, Unknown, 09/07/19) TRIMETHOPRIM (Verified Allergy, Unknown, 09/07/19) ZOLPIDEM (Verified Allergy, Unknown, 09/07/19) Objective Last 24 Hour Vital Signs Date Time Temp Pulse Resp B/P (MAP) Pulse Ox O2 Delivery O2 Flow Rate FiO2 09/09/19 16:40 98.2 74 18 114/75 (88) 96 09/09/19 16:00 98.4 79 20 118/82 (94) 97 09/09/19 12:00 Room Air 09/09/19 11:47 60 09/09/19 11:47 98.2 76 18 114/87 (96) 98 09/09/19 08:30 Room Air 09/09/19 08:30 98.2 87 18 130/81 (97) 97 09/09/19 07:37 83 09/09/19 06:29 98.0 09/09/19 04:00 Room Air 09/09/19 04:00 63 09/09/19 04:00 98.0 84 17 142/92 (109) 96 09/09/19 00:00 98.0 68 18 134/79 (97) 92 09/09/19 00:00 Room Air 09/09/19 00:00 81 Intake and Output 09/08/19 09/09/19 19:00 07:00 Intake Total 1155 ml 1000 ml Output Total 1000 ml 800 ml Balance 155 ml 200 ml Intake Oral 600 ml 1000 ml IV Total 555 ml Output Urine Total 1000 ml 800 ml Laboratory Tests 09/09/19 06:11: White Blood Count 5.6, Red Blood Count 4.32, Hemoglobin 12.7, Hematocrit 38.1, Mean Corpuscular Volume 88, Mean Corpuscular Hemoglobin 29.4, Mean Corpuscular Hemoglobin Concent 33.3, Red Cell Distribution Width 14.3, Platelet Count 199, Mean Platelet Volume 4.7L, Neutrophils (%) (Auto) 56.5, Lymphocytes (%) (Auto) 31.9, Monocytes (%) (Auto) 9.0, Eosinophils (%) (Auto) 1.3, Basophils (%) (Auto ) 1.3, Sodium Level 147H, Potassium Level 3.3L, Chloride Level 110H, Carbon Dioxide Level 22, Anion Gap 16H, Blood Urea Nitrogen 9, Creatinine 0.6, Estimat Glomerular Filtration Rate > 60, Glucose Level 88, Uric Acid 4.5, Calcium Level 8.1L, Phosphorus Level 2.6, Magnesium Level 2.3, Iron Level 49L, Total Iron Binding Capacity 280, Percent Iron Saturation 18, Unsaturated Iron Binding 231, Ferritin 49, Total Bilirubin 0.3, Aspartate Amino Transf (AST/SGOT) 16, Alanine Aminotransferase (ALT/SGPT) 17, Alkaline Phosphatase 44L, C-Reactive Protein, Quantitative < 0.4, Pro-B-Type Natriuretic Peptide 265H, Total Protein 6.8, Albumin 3.6, Globulin 3.2, Albumin/Globulin Ratio 1.1, Vitamin B12 Level 551, Folate 6.5L Height (Feet): 5 Height (Inches): 2.00 Weight (Pounds): 143 Deneen Reyna MD Sep 09, 2019 23:10
[2019-09-10] VITALS (7 sets, daily range): BP systolic 102–153; BP diastolic 70–96
--- NOTE | 2019-09-10 03:34 | NUR ---
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 genetic scientist made aware.
--- NOTE | 2019-09-10 04:00 | NUR ---
NURSE NOTES: Received a call from Oscar Gutiérrez, Microbiology that pt is positive for MRSA nares. robotic welder made aware.
[2019-09-10] MEDS: LORazepam 1mg tab ORAL SCH ×3 (04:10→18:22)
--- NOTE | 2019-09-10 05:00 | NUR ---
NURSE NOTES: Dr. Reyna, Ian, and Yahaira are made aware that pt was having what seems like an anxiety attack with repetitive groaning with her mouth open and periods of unresponsiveness, which started at 0430. made aware that 0900 scheduled ativan was given along with tylenol for back pain. Pt's blood pressure also went up to 170/100 during the entire episode. order control clerk blood bank made aware as well. Awaiting callback. Will endorse to the oncoming day RN.
[2019-09-10 06:39] LABS: BASOPHILS % (AUTO) 0.8 % (0.0-2.0); EOSINOPHILS % (AUTO) 0.9 % (0.0-3.0); HEMATOCRIT 38.3 % (37.0-47.0); LYMPHOCYTES % (AUTO) 15.3 % (20.0-45.0); MEAN CORPUSCULAR VOLUME 87 FL (80-99); MONOCYTES % (AUTO) 8.9 % (1.0-10.0); NEUTROPHILS % (AUTO) 74.2 % (45.0-75.0); PLATELET COUNT 232 K/UL (150-450); RED BLOOD COUNT 4.42 M/UL (4.20-5.40); RED CELL DISTRIBUTION WIDTH 14.2 % (11.6-14.8); WHITE BLOOD COUNT 7.1 K/UL (4.8-10.8)
--- NOTE | 2019-09-10 07:25 | NUR ---
NURSE NOTES: Received report from Shira Sterling RN. Patient in bed, A&Ox4, calming down from an anxiety episode. On room air, no signs of distress or labored breathing. IV intact, patent, and saline locked. Bed in lowest position with call light in reach. Side rails up x3. Will continue with plan of care.
--- NOTE | 2019-09-10 07:33 | NUR ---
HAND-OFF: Report given to FLORES Aguiar. Pt is awake and in stable condition. Plan of care endorsed.
[2019-09-10] MEDS: LORazepam 1mg tab ORAL PRN (10:02)
--- NOTE | 2019-09-10 10:28 | Nephrology Progress Note ---
Assessment/Plan Problem List: (1) Hypotension Assessment: Resolved- blood pressure fluctuating (2) Electrolyte imbalance (3) Hypocalcemia Assessment Episodic hypotension Anemia Hypocalcemia and hypernatremia UTI (urinary tract infection) Chronic neck and back pain Plan Add Norvasc for blood pressure Potassium supplement as needed Urine for tox screen negative Fluid challenge Monitor electrolytes and chemistries Anemia work-up Per orders Per consultants Objective Objective Last 24 Hour Vital Signs Date Time Temp Pulse Resp B/P (MAP) Pulse Ox O2 Delivery O2 Flow Rate FiO2 09/10/19 10:02 102 124/87 09/10/19 08:00 100.0 102 18 124/87 (99) 98 09/10/19 04:00 98.6 80 18 153/96 (115) 95 09/10/19 00:00 98.0 96 18 125/82 (96) 96 09/09/19 20:00 97.9 94 18 147/97 (114) 96 09/09/19 16:40 98.2 74 18 114/75 (88) 96 09/09/19 16:00 98.4 79 20 118/82 (94) 97 09/09/19 12:00 Room Air 09/09/19 11:47 60 09/09/19 11:47 98.2 76 18 114/87 (96) 98 Intake and Output 09/09/19 09/10/19 19:00 07:00 Intake Total 440 ml Output Total 1000 ml Balance -560 ml Intake Oral 440 ml Output Urine Total 1000 ml # Voids 2 Laboratory Tests 09/10/19 05:45: White Blood Count 7.1, Red Blood Count 4.42, Hemoglobin 13.0, Hematocrit 38.3, Mean Corpuscular Volume 87, Mean Corpuscular Hemoglobin 29.4, Mean Corpuscular Hemoglobin Concent 34.0, Red Cell Distribution Width 14.2, Platelet Count 232, Mean Platelet Volume 4.7L, Neutrophils (%) (Auto) 74.2, Lymphocytes (%) (Auto) 15.3L, Monocytes (%) (Auto) 8.9, Eosinophils (%) (Auto) 0.9, Basophils (%) (Auto ) 0.8, Cortisol AM Sample [Pending] Height (Feet): 5 Height (Inches): 2.00 Weight (Pounds): 143 Donaldo Mandel MD Sep 10, 2019 10:28
[2019-09-10] MEDS ORDERED: Tubing IV Secondary IV ONE (10:31)
--- NOTE | 2019-09-10 11:13 | NUR ---
NURSE NOTES: Notified Dr. Lenny Fernandez that patient is active for MRSA NARES and VRE RECTUM. Addendum: 09/10/19 at 1134 by Stefania Choi RN No orders given at this time.
--- NOTE | 2019-09-10 14:15 | Diagnostic Imaging Report ---
EXAM: US Duplex Bilateral Lower Extremities Veins CLINICAL HISTORY: Abnormal labs, bilateral leg pain TECHNIQUE: Real-time duplex ultrasound scan of the bilateral lower extremity veins integrating B-mode two-dimensional vascular structure, Doppler spectral analysis, color flow Doppler imaging and compression. COMPARISON: None FINDINGS: Right deep veins: Unremarkable. No DVT in the right common femoral, femoral, proximal deep femoral or popliteal veins. The veins demonstrate normal color flow, are normally compressible, with normal phasic flow and/or augmentation response. Right superficial veins: Unremarkable. No thrombus in the visualized right great saphenous vein. Left deep veins: Unremarkable. No DVT in the left common femoral, femoral, proximal deep femoral or popliteal veins. The veins demonstrate normal color flow, are normally compressible, with normal phasic flow and/or augmentation response. Left superficial veins: Unremarkable. No thrombus in the visualized left great saphenous vein. Soft tissues: No acute findings. No popliteal cyst. IMPRESSION: No deep venous thrombosis identified in either lower extremity.
[2019-09-10] MEDS: cefTRIAXone 1 GM in D5W 55 ML IVPB SCH (18:22)
--- NOTE | 2019-09-10 19:20 | NUR ---
HAND-OFF: Report given to FLORES Monique. Rounds done.
--- NOTE | 2019-09-10 20:00 | NUR ---
NURSE NOTES: Patient received in bed, awake, yelling "Nurse". No acute distress at this time. Needs attended. Call light in reach, bed alarm on, siderails x3. Fall precautions maintained. Will continue to monitor.
--- NOTE | 2019-09-10 20:12 | General Progress Note ---
Assessment/Plan Problem List: (1) UTI (urinary tract infection) ICD Codes: N39.0 - Urinary tract infection, site not specified SNOMED: 09546996, 457759922, 0487111122816 Qualifiers: Qualified Codes: N39.0 - Urinary tract infection, site not specified (2) Transient hypotension ICD Codes: I95.9 - Hypotension, unspecified SNOMED: 57684894116230 (3) Chronic neck and back pain ICD Codes: M54.2 - Cervicalgia; M54.9 - Dorsalgia, unspecified; G89.29 - Other chronic pain SNOMED: 09202951, 883445860, 0099173039843 (4) Hypotension ICD Codes: I95.9 - Hypotension, unspecified SNOMED: 82850573 Qualifiers: Qualified Codes: I95.89 - Other hypotension (5) Electrolyte imbalance ICD Codes: E87.8 - Other disorders of electrolyte and fluid balance, not elsewhere classified SNOMED: 717958860 (6) Hypocalcemia ICD Codes: E83.51 - Hypocalcemia SNOMED: 5708899 Status: progressing Assessment/Plan: sepsis uti improving psych pt agitated chronic pain afebrile vitals stable reviewed chart and labs Subjective ROS Limited/Unobtainable: Yes Allergies: Coded Allergies: DIPHENHYDRAMINE (Verified Allergy, Unknown, 09/07/19) PENICILLINS (Verified Allergy, Unknown, 09/07/19) SULFA (SULFONAMIDE ANTIBIOTICS) (Verified Allergy, Unknown, 09/07/19) SULFAMETHOXAZOLE (Verified Allergy, Unknown, 09/07/19) Shrimp (Verified Allergy, Unknown, 09/07/19) TETRACYCLINES (Verified Allergy, Unknown, 09/07/19) TRIMETHOPRIM (Verified Allergy, Unknown, 09/07/19) ZOLPIDEM (Verified Allergy, Unknown, 09/07/19) Objective Last 24 Hour Vital Signs Date Time Temp Pulse Resp B/P (MAP) Pulse Ox O2 Delivery O2 Flow Rate FiO2 09/10/19 16:00 98.3 88 19 102/71 (81) 98 09/10/19 12:00 99.6 101 19 140/96 (111) 98 09/10/19 11:03 99.6 09/10/19 10:02 102 124/87 09/10/19 09:00 Room Air 09/10/19 08:00 100.0 102 18 124/87 (99) 98 09/10/19 04:00 98.6 80 18 153/96 (115) 95 09/10/19 00:00 98.0 96 18 125/82 (96) 96 Intake and Output 09/09/19 09/10/19 19:00 07:00 Intake Total 495 ml Output Total 1000 ml Balance -505 ml Intake Oral 440 ml IV Total 55 ml Output Urine Total 1000 ml # Voids 2 Laboratory Tests 09/10/19 05:45: White Blood Count 7.1, Red Blood Count 4.42, Hemoglobin 13.0, Hematocrit 38.3, Mean Corpuscular Volume 87, Mean Corpuscular Hemoglobin 29.4, Mean Corpuscular Hemoglobin Concent 34.0, Red Cell Distribution Width 14.2, Platelet Count 232, Mean Platelet Volume 4.7L, Neutrophils (%) (Auto) 74.2, Lymphocytes (%) (Auto) 15.3L, Monocytes (%) (Auto) 8.9, Eosinophils (%) (Auto) 0.9, Basophils (%) (Auto ) 0.8, Cortisol AM Sample [Pending] Height (Feet): 5 Height (Inches): 2.00 Weight (Pounds): 143 Deneen Reyna MD Sep 10, 2019 20:12
--- NOTE | 2019-09-10 23:02 | Cardiology Progress Note ---
Assessment/Plan Assessment/Plan 1. Hypotension, responded well to intravenous fluid expansion. 2. Questionable DVT versus paroxysmal atrial fibrillation. Given the patient being on Eliquis, the reason and etiology of this is not clear. 3. Hypertension, start metoprolol ER 25mg po qd, continue amlodipine. Subjective Subjective No cardiac events reported. Had agitation this morning. Objective Last 24 Hour Vital Signs Date Time Temp Pulse Resp B/P (MAP) Pulse Ox O2 Delivery O2 Flow Rate FiO2 09/10/19 21:00 Room Air 09/10/19 20:00 98.1 96 19 108/70 (83) 98 09/10/19 16:00 98.3 88 19 102/71 (81) 98 09/10/19 12:00 99.6 101 19 140/96 (111) 98 09/10/19 11:03 99.6 09/10/19 10:02 102 124/87 09/10/19 09:00 Room Air 09/10/19 08:00 100.0 102 18 124/87 (99) 98 09/10/19 04:00 98.6 80 18 153/96 (115) 95 09/10/19 00:00 98.0 96 18 125/82 (96) 96 Intake and Output 09/09/19 09/10/19 19:00 07:00 Intake Total 495 ml Output Total 1000 ml Balance -505 ml Intake Oral 440 ml IV Total 55 ml Output Urine Total 1000 ml # Voids 2 Laboratory Tests Test 09/10/19 05:45 White Blood Count 7.1 K/UL (4.8-10.8) Red Blood Count 4.42 M/UL (4.20-5.40) Hemoglobin 13.0 G/DL (12.0-16.0) Hematocrit 38.3 % (37.0-47.0) Mean Corpuscular Volume 87 FL (80-99) Mean Corpuscular Hemoglobin 29.4 PG (27.0-31.0) Mean Corpuscular Hemoglobin Concent 34.0 G/DL (32.0-36.0) Red Cell Distribution Width 14.2 % (11.6-14.8) Platelet Count 232 K/UL (150-450) Mean Platelet Volume 4.7 FL (6.5-10.1) L Neutrophils (%) (Auto) 74.2 % (45.0-75.0) Lymphocytes (%) (Auto) 15.3 % (20.0-45.0) L Monocytes (%) (Auto) 8.9 % (1.0-10.0) Eosinophils (%) (Auto) 0.9 % (0.0-3.0) Basophils (%) (Auto) 0.8 % (0.0-2.0) Cortisol AM Sample Pending Objective HEENT: Atraumatic and normocephalic. Anicteric. Pupils are equal, round, and reactive to light and accommodation. Extraocular muscles intact. NECK: JVP less than 5 cm. No carotid bruit. Carotid upstrokes 2+ bilaterally. CARDIOVASCULAR: Normal S1, S2. Regular rate and rhythm. No murmurs, gallops, or rubs. PMI is at fourth intercostal space in the midclavicular line. LUNGS: Clear to auscultation bilaterally. ABDOMEN: Soft, nontender, and nondistended. No hepatosplenomegaly. Positive bowel sounds. EXTREMITIES: No evidence of edema, clubbing, or cyanosis. Jorje Sosa MD Sep 10, 2019 23:02
[2019-09-11 04:23] VITALS: BP 101/64
--- NOTE | 2019-09-11 07:09 | NUR ---
HAND-OFF: Report given to Stefania TANNER.
--- NOTE | 2019-09-11 07:11 | NUR ---
NURSE NOTES: Received report from FLORES Monique. Patient sleeping. On nasal cannula 2L/min. No signs of distress or labored breathing. Bed in lowest position with side rails up x3. Bed alarm on. Will continue with plan of care.
[2019-09-11 08:00] VITALS: BP 123/89
[2019-09-11] MEDS: LORazepam 1mg tab ORAL SCH ×3 (08:57→17:55)
[2019-09-11] MEDS: Metoprolol Succinate XL 25mg tab ORAL SCH (08:59)
[2019-09-11 09:06] LABS: BASOPHILS % (AUTO) 0.8 % (0.0-2.0); EOSINOPHILS % (AUTO) 2.9 % (0.0-3.0); HEMATOCRIT 38.8 % (37.0-47.0); LYMPHOCYTES % (AUTO) 25.1 % (20.0-45.0); MEAN CORPUSCULAR VOLUME 88 FL (80-99); MONOCYTES % (AUTO) 10.2 % (1.0-10.0); NEUTROPHILS % (AUTO) 60.9 % (45.0-75.0); PLATELET COUNT 225 K/UL (150-450); RED BLOOD COUNT 4.39 M/UL (4.20-5.40); RED CELL DISTRIBUTION WIDTH 14.6 % (11.6-14.8); WHITE BLOOD COUNT 6.7 K/UL (4.8-10.8)
--- NOTE | 2019-09-11 10:30 | Nephrology Progress Note ---
Assessment/Plan Problem List: (1) Hypotension Assessment: Resolved- blood pressure fluctuating (2) Electrolyte imbalance (3) Hypocalcemia Assessment Episodic hypotension Anemia Hypocalcemia and hypernatremia UTI (urinary tract infection) Chronic neck and back pain Plan Add Norvasc for blood pressure Potassium supplement as needed Urine for tox screen negative Fluid challenge Monitor electrolytes and chemistries Anemia work-up Per orders Per consultants Subjective ROS Limited/Unobtainable: No Constitutional: Reports: malaise, weakness Objective Objective Last 24 Hour Vital Signs Date Time Temp Pulse Resp B/P (MAP) Pulse Ox O2 Delivery O2 Flow Rate FiO2 09/11/19 08:59 83 123/89 09/11/19 08:59 83 123/89 09/11/19 08:00 98.2 83 17 123/89 (100) 100 09/11/19 04:23 97.8 74 19 101/64 (76) 100 09/10/19 23:47 97.1 83 19 110/76 (87) 100 09/10/19 21:00 Nasal Cannula 2.0 09/10/19 20:00 98.1 96 19 108/70 (83) 98 09/10/19 16:00 98.3 88 19 102/71 (81) 98 09/10/19 12:00 99.6 101 19 140/96 (111) 98 09/10/19 11:03 99.6 Intake and Output 09/10/19 09/11/19 19:00 07:00 Intake Total 120 ml Balance 120 ml Intake Oral 120 ml # Voids 3 2 Laboratory Tests 09/11/19 07:33: White Blood Count 6.7, Red Blood Count 4.39, Hemoglobin 13.0, Hematocrit 38.8, Mean Corpuscular Volume 88, Mean Corpuscular Hemoglobin 29.5, Mean Corpuscular Hemoglobin Concent 33.4, Red Cell Distribution Width 14.6, Platelet Count 225, Mean Platelet Volume 5.0L, Neutrophils (%) (Auto) 60.9, Lymphocytes (%) (Auto) 25.1, Monocytes (%) (Auto) 10.2H, Eosinophils (%) (Auto) 2.9, Basophils (%) ( Auto) 0.8 Height (Feet): 5 Height (Inches): 2.00 Weight (Pounds): 143 General Appearance: no apparent distress, lethargic Cardiovascular: normal rate Respiratory/Chest: decreased breath sounds Abdomen: soft, distended Donaldo Mandel MD Sep 11, 2019 10:30
[2019-09-11 12:00] VITALS: BP 126/80
--- NOTE | 2019-09-11 13:02 | General Progress Note ---
Assessment/Plan Assessment/Plan: (1) Degenerative joint disease (2) Multiple joint pain Patient to be continued on Tylenol as needed. D/w Dr. Rivas and he concurred. Subjective Date patient seen: Sep 11, 2019 Time patient seen: 12:00 - pm Allergies: Coded Allergies: DIPHENHYDRAMINE (Verified Allergy, Unknown, 09/07/19) PENICILLINS (Verified Allergy, Unknown, 09/07/19) SULFA (SULFONAMIDE ANTIBIOTICS) (Verified Allergy, Unknown, 09/07/19) SULFAMETHOXAZOLE (Verified Allergy, Unknown, 09/07/19) Shrimp (Verified Allergy, Unknown, 09/07/19) TETRACYCLINES (Verified Allergy, Unknown, 09/07/19) TRIMETHOPRIM (Verified Allergy, Unknown, 09/07/19) ZOLPIDEM (Verified Allergy, Unknown, 09/07/19) Subjective Constitutional: Reports: weakness HEENT: Reports: no symptoms Cardiovascular: Reports: no symptoms Respiratory: Reports: shortness of breath Gastrointestinal/Abdominal: Reports: no symptoms Genitourinary: Reports: no symptoms Neurologic/Psychiatric: Reports: depressed, weakness Endocrine: Reports: no symptoms Hematologic/Lymphatic: Reports: no symptoms Subjective Patient in bed no signs of pain or distress. No new complaints at this time. Objective Last 24 Hour Vital Signs Date Time Temp Pulse Resp B/P (MAP) Pulse Ox O2 Delivery O2 Flow Rate FiO2 09/11/19 12:00 97.5 79 18 126/80 (95) 98 09/11/19 09:00 Nasal Cannula 2.0 09/11/19 08:59 83 123/89 09/11/19 08:59 83 123/89 09/11/19 08:00 98.2 83 17 123/89 (100) 100 09/11/19 04:23 97.8 74 19 101/64 (76) 100 09/10/19 23:47 97.1 83 19 110/76 (87) 100 09/10/19 21:00 Nasal Cannula 2.0 09/10/19 20:00 98.1 96 19 108/70 (83) 98 09/10/19 16:00 98.3 88 19 102/71 (81) 98 Intake and Output 09/10/19 09/11/19 19:00 07:00 Intake Total 120 ml Balance 120 ml Intake Oral 120 ml # Voids 3 2 Laboratory Tests 09/11/19 07:33: White Blood Count 6.7, Red Blood Count 4.39, Hemoglobin 13.0, Hematocrit 38.8, Mean Corpuscular Volume 88, Mean Corpuscular Hemoglobin 29.5, Mean Corpuscular Hemoglobin Concent 33.4, Red Cell Distribution Width 14.6, Platelet Count 225, Mean Platelet Volume 5.0L, Neutrophils (%) (Auto) 60.9, Lymphocytes (%) (Auto) 25.1, Monocytes (%) (Auto) 10.2H, Eosinophils (%) (Auto) 2.9, Basophils (%) ( Auto) 0.8 Height (Feet): 5 Height (Inches): 2.00 Weight (Pounds): 143 Objective General Appearance: no apparent distress EENT: normal ENT inspection Neck: non-tender, normal alignment Cardiovascular: normal rate, regular rhythm Respiratory/Chest: decreased breath sounds Abdomen: non tender, soft Extremities: non-tender Edema: trace edema Neurologic: responsive Skin: normal pigmentation Ricardo Garcia Sep 11, 2019 13:02
--- NOTE | 2019-09-11 13:30 | Hematology/Onc Progress Note ---
Assessment/Plan Assessment/Plan Assessment and Recs: # Hypercoagulable disorder -- on eliquis, cardiology has been consulted --> obtain duplex of lower extremities and restart apixaban as needed --> will evaluate cards recs if qualifies for eliquis --> get home / outpatient records # Anemia of chronic disease --> hold of extensive workup --> hgb 10.7-->13 --> w/u if lower # Transient hypotension --> ivf have been started --> abx, ctx # UTI (urinary tract infection) --> on abx: ceftriaxone # Anxiety as per psych # Chronic neck and back pain Appreciate consultation and dw Rn Subjective Allergies: Coded Allergies: DIPHENHYDRAMINE (Verified Allergy, Unknown, 09/07/19) PENICILLINS (Verified Allergy, Unknown, 09/07/19) SULFA (SULFONAMIDE ANTIBIOTICS) (Verified Allergy, Unknown, 09/07/19) SULFAMETHOXAZOLE (Verified Allergy, Unknown, 09/07/19) Shrimp (Verified Allergy, Unknown, 09/07/19) TETRACYCLINES (Verified Allergy, Unknown, 09/07/19) TRIMETHOPRIM (Verified Allergy, Unknown, 09/07/19) ZOLPIDEM (Verified Allergy, Unknown, 09/07/19) Subjective 4/5 no acute events, labs reviewed, nc 2l, on ceftriaxone Objective Objective Current Medications Medications (Trade) Dose Ordered Sig/Chen Route PRN Reason Start Time Stop Time Status Last Admin Dose Admin Acetaminophen (Tylenol) 650 mg Q4H PRN ORAL MILD PAIN/FEVER 09/09/19 16:26 10/07/19 16:25 09/10/19 10:33 Amlodipine Besylate (Norvasc) 5 mg DAILY ORAL 09/10/19 09:15 10/10/19 09:14 09/11/19 08:59 Ceftriaxone Sodium 1 gm/ Dextrose 55 ml @ 110 mls/hr Q24H IVPB 09/09/19 18:00 09/15/19 17:59 09/10/19 18:22 Clonidine HCl (Catapres Tab) 0.1 mg QID PRN ORAL HYPERTENSION 09/10/19 23:15 12/09/19 23:14 Lorazepam (Ativan) 1 mg Q6H PRN ORAL For Anxiety/agitation 09/10/19 09:30 09/17/19 09:29 09/10/19 10:02 Lorazepam (Ativan) 1 mg THREE TIMES A DAY ORAL 09/09/19 18:00 09/15/19 17:59 09/11/19 12:51 Metoprolol Succinate (Toprol XL) 25 mg DAILY ORAL 09/11/19 09:00 12/10/19 08:59 Mirtazapine (Remeron) 15 mg BEDTIME ORAL 09/09/19 21:00 12/06/19 21:59 09/10/19 21:53 Potassium Chloride (K-Dur) 40 meq BID ORAL 09/11/19 18:00 12/08/19 08:59 Risperidone (RisperDAL) 1 mg DAILY ORAL 09/10/19 09:00 10/23/19 08:59 09/11/19 08:57 Last 24 Hour Vital Signs Date Time Temp Pulse Resp B/P (MAP) Pulse Ox O2 Delivery O2 Flow Rate FiO2 09/11/19 12:00 97.5 79 18 126/80 (95) 98 09/11/19 09:00 Nasal Cannula 2.0 09/11/19 08:59 83 123/89 09/11/19 08:59 83 123/89 09/11/19 08:00 98.2 83 17 123/89 (100) 100 09/11/19 04:23 97.8 74 19 101/64 (76) 100 09/10/19 23:47 97.1 83 19 110/76 (87) 100 09/10/19 21:00 Nasal Cannula 2.0 09/10/19 20:00 98.1 96 19 108/70 (83) 98 09/10/19 16:00 98.3 88 19 102/71 (81) 98 09/10/19 12:00 99.6 101 19 140/96 (111) 98 09/10/19 11:03 99.6 09/10/19 10:02 102 124/87 09/10/19 09:00 Room Air 09/10/19 08:00 100.0 102 18 124/87 (99) 98 09/10/19 04:00 98.6 80 18 153/96 (115) 95 09/10/19 00:00 98.0 96 18 125/82 (96) 96 09/09/19 20:00 97.9 94 18 147/97 (114) 96 09/09/19 16:40 98.2 74 18 114/75 (88) 96 09/09/19 16:00 98.4 79 20 118/82 (94) 97 Intake and Output 09/10/19 09/11/19 19:00 07:00 Intake Total 120 ml Balance 120 ml Intake Oral 120 ml # Voids 3 2 Labs Test 09/08/19 14:00 09/09/19 06:11 09/10/19 05:45 09/11/19 07:33 Urine Opiates Screen Negative (NEGATIVE) Urine Barbiturates Screen Negative (NEGATIVE) Phencyclidine (PCP) Screen Negative (NEGATIVE) Urine Amphetamines Screen Negative (NEGATIVE) Urine Benzodiazepines Screen Negative (NEGATIVE) Urine Cocaine Screen Negative (NEGATIVE) Urine Marijuana (THC) Screen Negative (NEGATIVE) White Blood Count 5.6 K/UL (4.8-10.8) 7.1 K/UL (4.8-10.8) 6.7 K/UL (4.8-10.8) Red Blood Count 4.32 M/UL (4.20-5.40) 4.42 M/UL (4.20-5.40) 4.39 M/UL (4.20-5.40) Hemoglobin 12.7 G/DL (12.0-16.0) 13.0 G/DL (12.0-16.0) 13.0 G/DL (12.0-16.0) Hematocrit 38.1 % (37.0-47.0) 38.3 % (37.0-47.0) 38.8 % (37.0-47.0) Mean Corpuscular Volume 88 FL (80-99) 87 FL (80-99) 88 FL (80-99) Mean Corpuscular Hemoglobin 29.4 PG (27.0-31.0) 29.4 PG (27.0-31.0) 29.5 PG (27.0-31.0) Mean Corpuscular Hemoglobin Concent 33.3 G/DL (32.0-36.0) 34.0 G/DL (32.0-36.0) 33.4 G/DL (32.0-36.0) Red Cell Distribution Width 14.3 % (11.6-14.8) 14.2 % (11.6-14.8) 14.6 % (11.6-14.8) Platelet Count 199 K/UL (150-450) 232 K/UL (150-450) 225 K/UL (150-450) Mean Platelet Volume 4.7 FL (6.5-10.1) 4.7 FL (6.5-10.1) 5.0 FL (6.5-10.1) Neutrophils (%) (Auto) 56.5 % (45.0-75.0) 74.2 % (45.0-75.0) 60.9 % (45.0-75.0) Lymphocytes (%) (Auto) 31.9 % (20.0-45.0) 15.3 % (20.0-45.0) 25.1 % (20.0-45.0) Monocytes (%) (Auto) 9.0 % (1.0-10.0) 8.9 % (1.0-10.0) 10.2 % (1.0-10.0) Eosinophils (%) (Auto) 1.3 % (0.0-3.0) 0.9 % (0.0-3.0) 2.9 % (0.0-3.0) Basophils (%) (Auto) 1.3 % (0.0-2.0) 0.8 % (0.0-2.0) 0.8 % (0.0-2.0) Sodium Level 147 MMOL/L (136-145) Potassium Level 3.3 MMOL/L (3.5-5.1) Chloride Level 110 MMOL/L (98-107) Carbon Dioxide Level 22 MMOL/L (21-32) Anion Gap 16 mmol/L (5-15) Blood Urea Nitrogen 9 mg/dL (7-18) Creatinine 0.6 MG/DL (0.55-1.30) Estimat Glomerular Filtration Rate > 60 mL/min (>60) Glucose Level 88 MG/DL (74-106) Uric Acid 4.5 MG/DL (2.6-7.2) Calcium Level 8.1 MG/DL (8.5-10.1) Phosphorus Level 2.6 MG/DL (2.5-4.9) Magnesium Level 2.3 MG/DL (1.8-2.4) Iron Level 49 ug/dL (50-175) Total Iron Binding Capacity 280 ug/dL (250-450) Percent Iron Saturation 18 % (15-50) Unsaturated Iron Binding 231 ug/dL (112-346) Ferritin 49 NG/ML (8-388) Total Bilirubin 0.3 MG/DL (0.2-1.0) Aspartate Amino Transf (AST/SGOT) 16 U/L (15-37) Alanine Aminotransferase (ALT/SGPT) 17 U/L (12-78) Alkaline Phosphatase 44 U/L (46-116) C-Reactive Protein, Quantitative < 0.4 mg/dL (0.00-0.90) Pro-B-Type Natriuretic Peptide 265 pg/mL (0-125) Total Protein 6.8 G/DL (6.4-8.2) Albumin 3.6 G/DL (3.4-5.0) Globulin 3.2 g/dL Albumin/Globulin Ratio 1.1 (1.0-2.7) Vitamin B12 Level 551 PG/ML (193-986) Folate 6.5 NG/ML (8.6-58.9) Height (Feet): 5 Height (Inches): 2.00 Weight (Pounds): 143 Objective Review of Systems All Other Systems: negative except mentioned in HPI, confused now PE Vitals noted General: no apparent distress, GCS 15 Heent: nc, at Neck: supple, tender - Bilaterally no point tenderness Respiratory: lungs clear, normal breath sounds, NC++ Cv: rrr, no mgr Gi normal inspection, normal bowel sounds, no mass, nd - Minimal suprapubic Gu: no CVA tenderness Msk: normal range of motion, no calf tenderness, gait/station normal, tender Neuro: alert, motor strength/tone normal, oriented - X2, sensory intact Psychiatric: depressed affect Skin: rash - Left side of mouth extending down towards chin, warm/dry Tony Quiroz MD Sep 11, 2019 13:30
[2019-09-11 16:00] VITALS: BP 129/90
--- NOTE | 2019-09-11 16:24 | Infectious Diseases Prog Note ---
Assessment/Plan Assessment/Plan IMPRESSION: Pyuria and dysuria, treated for UTI. Anxiety schizophrenia, anemia, hyperlipidemia. RECOMMENDATION: Discontinue ceftriaxone Negative COVID-19 test Subjective ROS Limited/Unobtainable: No Respiratory: Reports: no symptoms Cardiovascular: Reports: no symptoms Gastrointestinal/Abdominal: Reports: no symptoms Genitourinary: Reports: dysuria Psychiatric: Reports: anxiety Musculoskeletal: Reports: pain, other - neck, back pain Allergies: Coded Allergies: DIPHENHYDRAMINE (Verified Allergy, Unknown, 09/07/19) PENICILLINS (Verified Allergy, Unknown, 09/07/19) SULFA (SULFONAMIDE ANTIBIOTICS) (Verified Allergy, Unknown, 09/07/19) SULFAMETHOXAZOLE (Verified Allergy, Unknown, 09/07/19) Shrimp (Verified Allergy, Unknown, 09/07/19) TETRACYCLINES (Verified Allergy, Unknown, 09/07/19) TRIMETHOPRIM (Verified Allergy, Unknown, 09/07/19) ZOLPIDEM (Verified Allergy, Unknown, 09/07/19) Objective Vital Signs Last 24 Hour Vital Signs Date Time Temp Pulse Resp B/P (MAP) Pulse Ox O2 Delivery O2 Flow Rate FiO2 09/11/19 12:00 97.5 79 18 126/80 (95) 98 09/11/19 09:00 Nasal Cannula 2.0 09/11/19 08:59 83 123/89 09/11/19 08:59 83 123/89 09/11/19 08:00 98.2 83 17 123/89 (100) 100 09/11/19 04:23 97.8 74 19 101/64 (76) 100 09/10/19 23:47 97.1 83 19 110/76 (87) 100 09/10/19 21:00 Nasal Cannula 2.0 09/10/19 20:00 98.1 96 19 108/70 (83) 98 Height (Feet): 5 Height (Inches): 2.00 Weight (Pounds): 143 General Appearance: no acute distress HEENT: mucous membranes moist Respiratory/Chest: lungs clear Cardiovascular: normal rate Abdomen: soft, non tender Extremities: no edema Neurologic/Psychiatric: alert, responsive Laboratory Tests Test 09/11/19 07:33 White Blood Count 6.7 K/UL (4.8-10.8) Red Blood Count 4.39 M/UL (4.20-5.40) Hemoglobin 13.0 G/DL (12.0-16.0) Hematocrit 38.8 % (37.0-47.0) Mean Corpuscular Volume 88 FL (80-99) Mean Corpuscular Hemoglobin 29.5 PG (27.0-31.0) Mean Corpuscular Hemoglobin Concent 33.4 G/DL (32.0-36.0) Red Cell Distribution Width 14.6 % (11.6-14.8) Platelet Count 225 K/UL (150-450) Mean Platelet Volume 5.0 FL (6.5-10.1) L Neutrophils (%) (Auto) 60.9 % (45.0-75.0) Lymphocytes (%) (Auto) 25.1 % (20.0-45.0) Monocytes (%) (Auto) 10.2 % (1.0-10.0) H Eosinophils (%) (Auto) 2.9 % (0.0-3.0) Basophils (%) (Auto) 0.8 % (0.0-2.0) Current Medications Medications (Trade) Dose Ordered Sig/Chen Route PRN Reason Start Time Stop Time Status Last Admin Dose Admin Acetaminophen (Tylenol) 650 mg Q4H PRN ORAL MILD PAIN/FEVER 09/09/19 16:26 10/07/19 16:25 09/10/19 10:33 Amlodipine Besylate (Norvasc) 5 mg DAILY ORAL 09/10/19 09:15 10/10/19 09:14 09/11/19 08:59 Ceftriaxone Sodium 1 gm/ Dextrose 55 ml @ 110 mls/hr Q24H IVPB 09/09/19 18:00 09/15/19 17:59 09/10/19 18:22 Clonidine HCl (Catapres Tab) 0.1 mg QID PRN ORAL HYPERTENSION 09/10/19 23:15 12/09/19 23:14 Lorazepam (Ativan) 1 mg Q6H PRN ORAL For Anxiety/agitation 09/10/19 09:30 09/17/19 09:29 09/10/19 10:02 Lorazepam (Ativan) 1 mg THREE TIMES A DAY ORAL 09/09/19 18:00 09/15/19 17:59 09/11/19 12:51 Metoprolol Succinate (Toprol XL) 25 mg DAILY ORAL 09/11/19 09:00 12/10/19 08:59 Mirtazapine (Remeron) 15 mg BEDTIME ORAL 09/09/19 21:00 12/06/19 21:59 09/10/19 21:53 Potassium Chloride (K-Dur) 40 meq BID ORAL 09/11/19 18:00 12/08/19 08:59 Risperidone (RisperDAL) 1 mg DAILY ORAL 09/10/19 09:00 10/23/19 08:59 09/11/19 08:57 Lenny Fernandez MD Sep 11, 2019 16:24
--- NOTE | 2019-09-11 19:11 | NUR ---
HAND-OFF: Report given to FLORES Ta.
[2019-09-11 20:00] VITALS: BP 130/87
--- NOTE | 2019-09-11 20:30 | NUR ---
NURSE NOTES: Received patient awake in bed, agitated, wet, able to make needs known. Gave bed bath and full linen change with [employer]. IV access patent, flushed with normal saline, patient tolerating well. Patient on nasal cannula 2L. Bed low and locked. Sacral dressing changed.
--- NOTE | 2019-09-11 20:59 | General Progress Note ---
Assessment/Plan Problem List: (1) UTI (urinary tract infection) ICD Codes: N39.0 - Urinary tract infection, site not specified SNOMED: 62173375, 505898602, 4075055502956 Qualifiers: Qualified Codes: N39.0 - Urinary tract infection, site not specified (2) Transient hypotension ICD Codes: I95.9 - Hypotension, unspecified SNOMED: 55034495537871 (3) Chronic neck and back pain ICD Codes: M54.2 - Cervicalgia; M54.9 - Dorsalgia, unspecified; G89.29 - Other chronic pain SNOMED: 38577038, 741039715, 5906945794211 (4) Hypotension ICD Codes: I95.9 - Hypotension, unspecified SNOMED: 82371893 Qualifiers: Qualified Codes: I95.89 - Other hypotension (5) Electrolyte imbalance ICD Codes: E87.8 - Other disorders of electrolyte and fluid balance, not elsewhere classified SNOMED: 655568585 (6) Hypocalcemia ICD Codes: E83.51 - Hypocalcemia SNOMED: 2880443 Status: progressing Assessment/Plan: sepsis uti improving psych pt agitated chronic pain vitals stable abx per id no acute events Subjective ROS Limited/Unobtainable: Yes Allergies: Coded Allergies: DIPHENHYDRAMINE (Verified Allergy, Unknown, 09/07/19) PENICILLINS (Verified Allergy, Unknown, 09/07/19) SULFA (SULFONAMIDE ANTIBIOTICS) (Verified Allergy, Unknown, 09/07/19) SULFAMETHOXAZOLE (Verified Allergy, Unknown, 09/07/19) Shrimp (Verified Allergy, Unknown, 09/07/19) TETRACYCLINES (Verified Allergy, Unknown, 09/07/19) TRIMETHOPRIM (Verified Allergy, Unknown, 09/07/19) ZOLPIDEM (Verified Allergy, Unknown, 09/07/19) Objective Last 24 Hour Vital Signs Date Time Temp Pulse Resp B/P (MAP) Pulse Ox O2 Delivery O2 Flow Rate FiO2 09/11/19 16:00 98.4 89 18 129/90 (103) 98 09/11/19 12:00 97.5 79 18 126/80 (95) 98 09/11/19 09:00 Nasal Cannula 2.0 09/11/19 08:59 83 123/89 09/11/19 08:59 83 123/89 09/11/19 08:00 98.2 83 17 123/89 (100) 100 09/11/19 04:23 97.8 74 19 101/64 (76) 100 09/10/19 23:47 97.1 83 19 110/76 (87) 100 09/10/19 21:00 Nasal Cannula 2.0 Intake and Output 09/10/19 09/11/19 19:00 07:00 Intake Total 120 ml Balance 120 ml Intake Oral 120 ml # Voids 3 2 Laboratory Tests 09/11/19 07:33: White Blood Count 6.7, Red Blood Count 4.39, Hemoglobin 13.0, Hematocrit 38.8, Mean Corpuscular Volume 88, Mean Corpuscular Hemoglobin 29.5, Mean Corpuscular Hemoglobin Concent 33.4, Red Cell Distribution Width 14.6, Platelet Count 225, Mean Platelet Volume 5.0L, Neutrophils (%) (Auto) 60.9, Lymphocytes (%) (Auto) 25.1, Monocytes (%) (Auto) 10.2H, Eosinophils (%) (Auto) 2.9, Basophils (%) ( Auto) 0.8 Height (Feet): 5 Height (Inches): 2.00 Weight (Pounds): 143 Deneen Reyna MD Sep 11, 2019 20:59
--- NOTE | 2019-09-11 21:48 | Cardiology Progress Note ---
Assessment/Plan Assessment/Plan 1. Hypotension, responded well to intravenous fluid expansion. 2. Questionable DVT versus paroxysmal atrial fibrillation, continue Eliquis. 3. Hypertension, well controlled, continue metoprolol ER and amlodipine. Subjective Subjective No cardiac events reported. Objective Last 24 Hour Vital Signs Date Time Temp Pulse Resp B/P (MAP) Pulse Ox O2 Delivery O2 Flow Rate FiO2 09/11/19 16:00 98.4 89 18 129/90 (103) 98 09/11/19 12:00 97.5 79 18 126/80 (95) 98 09/11/19 09:00 Nasal Cannula 2.0 09/11/19 08:59 83 123/89 09/11/19 08:59 83 123/89 09/11/19 08:00 98.2 83 17 123/89 (100) 100 09/11/19 04:23 97.8 74 19 101/64 (76) 100 09/10/19 23:47 97.1 83 19 110/76 (87) 100 Intake and Output 09/10/19 09/11/19 19:00 07:00 Intake Total 120 ml Balance 120 ml Intake Oral 120 ml # Voids 3 2 Laboratory Tests Test 09/11/19 07:33 White Blood Count 6.7 K/UL (4.8-10.8) Red Blood Count 4.39 M/UL (4.20-5.40) Hemoglobin 13.0 G/DL (12.0-16.0) Hematocrit 38.8 % (37.0-47.0) Mean Corpuscular Volume 88 FL (80-99) Mean Corpuscular Hemoglobin 29.5 PG (27.0-31.0) Mean Corpuscular Hemoglobin Concent 33.4 G/DL (32.0-36.0) Red Cell Distribution Width 14.6 % (11.6-14.8) Platelet Count 225 K/UL (150-450) Mean Platelet Volume 5.0 FL (6.5-10.1) L Neutrophils (%) (Auto) 60.9 % (45.0-75.0) Lymphocytes (%) (Auto) 25.1 % (20.0-45.0) Monocytes (%) (Auto) 10.2 % (1.0-10.0) H Eosinophils (%) (Auto) 2.9 % (0.0-3.0) Basophils (%) (Auto) 0.8 % (0.0-2.0) Objective HEENT: Atraumatic and normocephalic. Anicteric. Pupils are equal, round, and reactive to light and accommodation. Extraocular muscles intact. NECK: JVP less than 5 cm. No carotid bruit. Carotid upstrokes 2+ bilaterally. CARDIOVASCULAR: Normal S1, S2. Regular rate and rhythm. No murmurs, gallops, or rubs. PMI is at fourth intercostal space in the midclavicular line. LUNGS: Clear to auscultation bilaterally. ABDOMEN: Soft, nontender, and nondistended. No hepatosplenomegaly. Positive bowel sounds. EXTREMITIES: No evidence of edema, clubbing, or cyanosis. Jorje Sosa MD Sep 11, 2019 21:48
--- NOTE | 2019-09-11 21:49 | NUR ---
NURSE NOTES: Patient verbally refused SCD.
[2019-09-11] MEDS: LORazepam 1mg tab ORAL PRN (22:00)
[2019-09-12] VITALS: BP 127/83
--- NOTE | 2019-09-12 01:15 | Progress Note ---
DATE: 09/11/2019 SUBJECTIVE: Patient is doing better, calmer, more manageable. Patient is able to answer the questions more appropriately. She still has episodes of agitation. MENTAL STATUS EXAMINATION: Patient is alert, oriented times self, place, situation. Mood is depressed. Affect is constricted, congruent with mood. Thought process is concrete. Thought content, no suicidal or homicidal ideation. ASSESSMENT: Stable. PLAN: 1. Continue current psychotropic medications. 2. Provide the patient with reality orientation and supportive therapy. Taty Syed M.D. DR: GERMANIA JOB#: [id number] CC:
[2019-09-12 04:00] VITALS: BP 110/61
[2019-09-12] MEDS: LORazepam 1mg tab ORAL PRN (06:29)
--- NOTE | 2019-09-12 07:25 | NUR ---
HAND-OFF: Report given to FLORES Carter.
--- NOTE | 2019-09-12 07:48 | NUR ---
NURSE NOTES: Patient seen on rounds, awake in bed. AxOx1 with periods of orientation to situation. Patient is very restless and keeps yelling out "Megan, please come help me". Not in acute distress, no complaints of pain. O2 via NC at 2lpm and oxygen sats stable. PIV on right forearm on saline lock, patent and intact. Bed is low and locked, siderails up x3, SCD's on, call light within reach. Will do frequent visual rounds and continue to monitor.
[2019-09-12 08:00] VITALS: BP 127/88
[2019-09-12] MEDS: Metoprolol Succinate XL 25mg tab ORAL SCH (09:28)
[2019-09-12] MEDS: LORazepam 1mg tab ORAL SCH ×3 (09:29→17:57)
--- NOTE | 2019-09-12 09:36 | Hematology/Onc Progress Note ---
Assessment/Plan Assessment/Plan Assessment and Recs: # Hypercoagulable disorder -- on eliquis, cardiology has been consulted --> obtain duplex of lower extremities and restart apixaban as needed --> will evaluate cards recs if qualifies for eliquis --> get home / outpatient records # Anemia of chronic disease --> hold of extensive workup --> hgb 10.7-->13 --> w/u if lower # Transient hypotension --> ivf have been started --> abx, ctx # UTI (urinary tract infection) --> on abx: ceftriaxone # Anxiety as per psych # Chronic neck and back pain Appreciate consultation and dw Rn Subjective Constitutional: Denies: no symptoms, chills, fever, malaise, weakness, other HEENT: Denies: no symptoms, eye pain, blurred vision, tearing, double vision, ear pain, ear discharge, nose pain, nose congestion, throat pain, throat swelling, mouth pain, mouth swelling, other Cardiovascular: Denies: no symptoms, chest pain, edema, irregular heart rate, lightheadedness, palpitations, syncope, other Respiratory: Denies: no symptoms, cough, shortness of breath, SOB with excertion, SOB at rest, sputum, wheezing, other Gastrointestinal/Abdominal: Denies: no symptoms, abdomen distended, abdominal pain, black stools, tarry stools, blood in stool, constipated, diarrhea, difficulty swallowing, nausea, poor appetite, poor fluid intake, rectal bleeding , vomiting, other Genitourinary: Denies: no symptoms, burning, discharge, frequency, flank pain, hematuria, incontinence, pain, urgency, other Neurologic/Psychiatric: Denies: no symptoms, anxiety, depressed, emotional problems, headache, numbness, paresthesia, pre-existing deficit, seizure, tingling, tremors, weakness, other Endocrine: Denies: no symptoms, excessive sweating, flushing, intolerance to cold, intolerance to heat, increased hunger, increased thirst, increased urine, unexplained weight gain, unexplained weight loss, other Hematologic/Lymphatic: Denies: no symptoms, anemia, easy bleeding, easy bruising, adenopathy, other Allergies: Coded Allergies: DIPHENHYDRAMINE (Verified Allergy, Unknown, 09/07/19) PENICILLINS (Verified Allergy, Unknown, 09/07/19) SULFA (SULFONAMIDE ANTIBIOTICS) (Verified Allergy, Unknown, 09/07/19) SULFAMETHOXAZOLE (Verified Allergy, Unknown, 09/07/19) Shrimp (Verified Allergy, Unknown, 09/07/19) TETRACYCLINES (Verified Allergy, Unknown, 09/07/19) TRIMETHOPRIM (Verified Allergy, Unknown, 09/07/19) ZOLPIDEM (Verified Allergy, Unknown, 09/07/19) Subjective 4/5 no acute events, labs reviewed, nc 2l, on ceftriaxone 09/11 a+o x1, no bleeding, no fc, or chills are noted Objective Objective Current Medications Medications (Trade) Dose Ordered Sig/Chen Route PRN Reason Start Time Stop Time Status Last Admin Dose Admin Acetaminophen (Tylenol) 650 mg Q4H PRN ORAL MILD PAIN/FEVER 09/09/19 16:26 10/07/19 16:25 09/10/19 10:33 Amlodipine Besylate (Norvasc) 5 mg DAILY ORAL 09/10/19 09:15 10/10/19 09:14 09/12/19 09:28 Clonidine HCl (Catapres Tab) 0.1 mg QID PRN ORAL HYPERTENSION 09/10/19 23:15 12/09/19 23:14 Lorazepam (Ativan) 1 mg Q6H PRN ORAL For Anxiety/agitation 09/10/19 09:30 09/17/19 09:29 09/12/19 06:29 Lorazepam (Ativan) 1 mg THREE TIMES A DAY ORAL 09/09/19 18:00 09/15/19 17:59 09/12/19 09:29 Metoprolol Succinate (Toprol XL) 25 mg DAILY ORAL 09/11/19 09:00 12/10/19 08:59 09/12/19 09:28 Mirtazapine (Remeron) 15 mg BEDTIME ORAL 09/09/19 21:00 12/06/19 21:59 09/11/19 20:12 Potassium Chloride (K-Dur) 40 meq BID ORAL 09/11/19 18:00 12/08/19 08:59 09/12/19 09:29 Risperidone (RisperDAL) 1 mg DAILY ORAL 09/10/19 09:00 10/23/19 08:59 09/12/19 09:28 Last 24 Hour Vital Signs Date Time Temp Pulse Resp B/P (MAP) Pulse Ox O2 Delivery O2 Flow Rate FiO2 09/12/19 09:28 109 127/88 09/12/19 09:28 109 127/88 09/12/19 08:00 98.3 109 20 127/88 (101) 96 09/12/19 04:00 97.9 86 20 110/61 (77) 98 09/12/19 00:00 98.0 95 20 127/83 (98) 98 09/11/19 22:42 Nasal Cannula 2.0 09/11/19 20:00 97.0 101 20 130/87 (101) 98 09/11/19 16:00 98.4 89 18 129/90 (103) 98 09/11/19 12:00 97.5 79 18 126/80 (95) 98 09/11/19 09:00 Nasal Cannula 2.0 09/11/19 08:59 83 123/89 09/11/19 08:59 83 123/89 09/11/19 08:00 98.2 83 17 123/89 (100) 100 09/11/19 04:23 97.8 74 19 101/64 (76) 100 09/10/19 23:47 97.1 83 19 110/76 (87) 100 09/10/19 21:00 Nasal Cannula 2.0 09/10/19 20:00 98.1 96 19 108/70 (83) 98 09/10/19 16:00 98.3 88 19 102/71 (81) 98 09/10/19 12:00 99.6 101 19 140/96 (111) 98 09/10/19 11:03 99.6 09/10/19 10:02 102 124/87 Intake and Output 09/11/19 09/12/19 19:00 07:00 # Voids 2 Labs Test 09/10/19 05:45 09/11/19 07:33 White Blood Count 7.1 K/UL (4.8-10.8) 6.7 K/UL (4.8-10.8) Red Blood Count 4.42 M/UL (4.20-5.40) 4.39 M/UL (4.20-5.40) Hemoglobin 13.0 G/DL (12.0-16.0) 13.0 G/DL (12.0-16.0) Hematocrit 38.3 % (37.0-47.0) 38.8 % (37.0-47.0) Mean Corpuscular Volume 87 FL (80-99) 88 FL (80-99) Mean Corpuscular Hemoglobin 29.4 PG (27.0-31.0) 29.5 PG (27.0-31.0) Mean Corpuscular Hemoglobin Concent 34.0 G/DL (32.0-36.0) 33.4 G/DL (32.0-36.0) Red Cell Distribution Width 14.2 % (11.6-14.8) 14.6 % (11.6-14.8) Platelet Count 232 K/UL (150-450) 225 K/UL (150-450) Mean Platelet Volume 4.7 FL (6.5-10.1) 5.0 FL (6.5-10.1) Neutrophils (%) (Auto) 74.2 % (45.0-75.0) 60.9 % (45.0-75.0) Lymphocytes (%) (Auto) 15.3 % (20.0-45.0) 25.1 % (20.0-45.0) Monocytes (%) (Auto) 8.9 % (1.0-10.0) 10.2 % (1.0-10.0) Eosinophils (%) (Auto) 0.9 % (0.0-3.0) 2.9 % (0.0-3.0) Basophils (%) (Auto) 0.8 % (0.0-2.0) 0.8 % (0.0-2.0) Height (Feet): 5 Height (Inches): 2.00 Weight (Pounds): 143 Objective Review of Systems All Other Systems: negative except mentioned in HPI, confused now PE Vitals noted General: no apparent distress, GCS 15 Heent: nc, at Neck: supple, tender - Bilaterally no point tenderness Respiratory: lungs clear, normal breath sounds, NC++ Cv: rrr, no mgr Gi normal inspection, normal bowel sounds, no mass, nd - Minimal suprapubic Gu: no CVA tenderness Msk: normal range of motion, no calf tenderness, gait/station normal, tender Neuro: alert, motor strength/tone normal, oriented - X2, sensory intact Psychiatric: depressed affect Skin: rash - Left side of mouth extending down towards chin, warm/dry Tony Quiroz MD Sep 12, 2019 09:36
--- NOTE | 2019-09-12 10:04 | NUR ---
DISCHARGE PLANNING PATIENT HAS BEEN REFERRED BACK TO [facility] P: [phone] F: [phone] Addendum: 09/12/19 at 1539 by CONTRERAS JUAREZ LVN LVN FOLLOW UP CALL MADE TO [facility]. S/W [facility] IN ADMISSIONS. CONFIRMED PATIENT ACCEPTED TO RETURN. BED WILL BE AVAILABLE FOR PATIENT TO RETURN ON 09/13/2019 AT 11 AM. ROOM 20-A SKILLED
--- NOTE | 2019-09-12 10:26 | Nephrology Progress Note ---
Assessment/Plan Problem List: (1) Hypotension Assessment: Resolved- blood pressure fluctuating (2) Electrolyte imbalance (3) Hypocalcemia Assessment Episodic hypotension Anemia Hypocalcemia and hypernatremia UTI (urinary tract infection) Chronic neck and back pain Plan Check labs in a.m. Add Norvasc for blood pressure Potassium supplement as needed Urine for tox screen negative Fluid challenge Monitor electrolytes and chemistries Anemia work-up Per orders Per consultants Subjective ROS Limited/Unobtainable: No Constitutional: Reports: malaise, weakness Objective Objective Last 24 Hour Vital Signs Date Time Temp Pulse Resp B/P (MAP) Pulse Ox O2 Delivery O2 Flow Rate FiO2 09/12/19 09:28 109 127/88 09/12/19 09:28 109 127/88 09/12/19 09:00 Nasal Cannula 2.0 09/12/19 08:00 98.3 109 20 127/88 (101) 96 09/12/19 04:00 97.9 86 20 110/61 (77) 98 09/12/19 00:00 98.0 95 20 127/83 (98) 98 09/11/19 22:42 Nasal Cannula 2.0 09/11/19 20:00 97.0 101 20 130/87 (101) 98 09/11/19 16:00 98.4 89 18 129/90 (103) 98 09/11/19 12:00 97.5 79 18 126/80 (95) 98 Intake and Output 09/11/19 09/12/19 19:00 07:00 # Voids 2 No blood drawn today Height (Feet): 5 Height (Inches): 2.00 Weight (Pounds): 143 General Appearance: no apparent distress, lethargic Respiratory/Chest: lungs clear Abdomen: soft Donaldo Mandel MD Sep 12, 2019 10:26
[2019-09-12 12:00] VITALS: BP 102/76
--- NOTE | 2019-09-12 12:38 | Infectious Diseases Prog Note ---
Assessment/Plan Assessment/Plan IMPRESSION: Pyuria and dysuria, treated for UTI. Anxiety schizophrenia, anemia, hyperlipidemia. RECOMMENDATION: Observe off antibiotic Negative COVID-19 test Subjective ROS Limited/Unobtainable: Yes Gastrointestinal/Abdominal: Reports: other - abdominal pain Allergies: Coded Allergies: DIPHENHYDRAMINE (Verified Allergy, Unknown, 09/07/19) PENICILLINS (Verified Allergy, Unknown, 09/07/19) SULFA (SULFONAMIDE ANTIBIOTICS) (Verified Allergy, Unknown, 09/07/19) SULFAMETHOXAZOLE (Verified Allergy, Unknown, 09/07/19) Shrimp (Verified Allergy, Unknown, 09/07/19) TETRACYCLINES (Verified Allergy, Unknown, 09/07/19) TRIMETHOPRIM (Verified Allergy, Unknown, 09/07/19) ZOLPIDEM (Verified Allergy, Unknown, 09/07/19) Objective Vital Signs Last 24 Hour Vital Signs Date Time Temp Pulse Resp B/P (MAP) Pulse Ox O2 Delivery O2 Flow Rate FiO2 09/12/19 12:00 98.6 79 20 102/76 (85) 97 09/12/19 09:28 109 127/88 09/12/19 09:28 109 127/88 09/12/19 09:00 Nasal Cannula 2.0 09/12/19 08:00 98.3 109 20 127/88 (101) 96 09/12/19 04:00 97.9 86 20 110/61 (77) 98 09/12/19 00:00 98.0 95 20 127/83 (98) 98 09/11/19 22:42 Nasal Cannula 2.0 09/11/19 20:00 97.0 101 20 130/87 (101) 98 09/11/19 16:00 98.4 89 18 129/90 (103) 98 Height (Feet): 5 Height (Inches): 2.00 Weight (Pounds): 143 HEENT: mucous membranes moist Respiratory/Chest: lungs clear Cardiovascular: normal rate Abdomen: soft, non tender Extremities: no edema Neurologic/Psychiatric: alert, responsive Current Medications Medications (Trade) Dose Ordered Sig/Chen Route PRN Reason Start Time Stop Time Status Last Admin Dose Admin Acetaminophen (Tylenol) 650 mg Q4H PRN ORAL MILD PAIN/FEVER 09/09/19 16:26 10/07/19 16:25 09/10/19 10:33 Amlodipine Besylate (Norvasc) 5 mg DAILY ORAL 09/10/19 09:15 10/10/19 09:14 09/12/19 09:28 Clonidine HCl (Catapres Tab) 0.1 mg QID PRN ORAL HYPERTENSION 09/10/19 23:15 12/09/19 23:14 Lorazepam (Ativan) 1 mg Q6H PRN ORAL For Anxiety/agitation 09/10/19 09:30 09/17/19 09:29 09/12/19 06:29 Lorazepam (Ativan) 1 mg THREE TIMES A DAY ORAL 09/09/19 18:00 09/15/19 17:59 09/12/19 09:29 Metoprolol Succinate (Toprol XL) 25 mg DAILY ORAL 09/11/19 09:00 12/10/19 08:59 09/12/19 09:28 Mirtazapine (Remeron) 15 mg BEDTIME ORAL 09/09/19 21:00 12/06/19 21:59 09/11/19 20:12 Potassium Chloride (K-Dur) 40 meq BID ORAL 09/11/19 18:00 12/08/19 08:59 09/12/19 09:29 Risperidone (RisperDAL) 1 mg DAILY ORAL 09/10/19 09:00 10/23/19 08:59 09/12/19 09:28 Lenny Fernandez MD Sep 12, 2019 12:38
[2019-09-12 16:00] VITALS: BP 116/82
--- NOTE | 2019-09-12 16:02 | General Progress Note ---
Assessment/Plan Assessment/Plan: (1) Degenerative joint disease (2) Multiple joint pain Patient to be continued on Tylenol as needed. D/w Dr. Rivas and he concurred. Subjective Date patient seen: Sep 12, 2019 Time patient seen: 03:30 - pm Allergies: Coded Allergies: DIPHENHYDRAMINE (Verified Allergy, Unknown, 09/07/19) PENICILLINS (Verified Allergy, Unknown, 09/07/19) SULFA (SULFONAMIDE ANTIBIOTICS) (Verified Allergy, Unknown, 09/07/19) SULFAMETHOXAZOLE (Verified Allergy, Unknown, 09/07/19) Shrimp (Verified Allergy, Unknown, 09/07/19) TETRACYCLINES (Verified Allergy, Unknown, 09/07/19) TRIMETHOPRIM (Verified Allergy, Unknown, 09/07/19) ZOLPIDEM (Verified Allergy, Unknown, 09/07/19) Subjective Constitutional: Reports: weakness HEENT: Reports: no symptoms Cardiovascular: Reports: no symptoms Respiratory: Reports: shortness of breath Gastrointestinal/Abdominal: Reports: no symptoms Genitourinary: Reports: no symptoms Neurologic/Psychiatric: Reports: depressed, weakness Endocrine: Reports: no symptoms Hematologic/Lymphatic: Reports: no symptoms Subjective Patient continues to be in bed and reports no pain at this time. She is using the Tylenol as needed. Objective Last 24 Hour Vital Signs Date Time Temp Pulse Resp B/P (MAP) Pulse Ox O2 Delivery O2 Flow Rate FiO2 09/12/19 12:00 98.6 79 20 102/76 (85) 97 09/12/19 09:28 109 127/88 09/12/19 09:28 109 127/88 09/12/19 09:00 Nasal Cannula 2.0 09/12/19 08:00 98.3 109 20 127/88 (101) 96 09/12/19 04:00 97.9 86 20 110/61 (77) 98 09/12/19 00:00 98.0 95 20 127/83 (98) 98 09/11/19 22:42 Nasal Cannula 2.0 09/11/19 20:00 97.0 101 20 130/87 (101) 98 Intake and Output 09/11/19 09/12/19 19:00 07:00 # Voids 2 Height (Feet): 5 Height (Inches): 2.00 Weight (Pounds): 143 Objective General Appearance: no apparent distress EENT: normal ENT inspection Neck: non-tender, normal alignment Cardiovascular: normal rate, regular rhythm Respiratory/Chest: decreased breath sounds Abdomen: non tender, soft Extremities: non-tender Edema: trace edema Neurologic: responsive Skin: normal pigmentation Ricardo Garcia Sep 12, 2019 16:02
--- NOTE | 2019-09-12 16:05 | NUR ---
CASE MANAGEMENT:REVIEW SI;UTI. SEPSIS. HYPOTENSION. 98.6 109 20 102/76 96% 2L NC NO LABS AVAILABLE IS;K-DUR PO BID ATIVAN PO TID REMERON PO HS MED SURG STATUS DCP;TO [facility] WILL DISCHARGE PATIENT TO [facility] ON 09/13/19 DUE TO BED UNAVAILABLE TODAY
--- NOTE | 2019-09-12 17:52 | NUR ---
NURSE NOTES:WOUND CARE NOTES:Pt presented on admission with non-blanching erythema without induration Sacrum . Non-tener when minimally palpated. Both heels are boggy with non-blanchable erythema. NO other skin concerns noted. Tx.plan: Apply Moisture Barrier Paste to Sacrum. Cover with Optifoam drsg. Change every 3 days and prn. Apply Cavilon Skin Barrier to both heels. Cover each heel with Optifoam drsg. Change every 7 days and prn. Reposition at least every 2hours or as tolerated. Off-load heels with pillow.
--- NOTE | 2019-09-12 19:20 | NUR ---
HAND-OFF: Report given to FLORES Ruvalcaba.
[2019-09-12 20:00] VITALS: BP 93/66
--- NOTE | 2019-09-12 20:39 | NUR ---
NURSE NOTES: RECEIVED PATIENT FROM FLORES SERRANO. PATIENT IS AWAKE, AAOX2, SLOW TO RESPONSE, ON 2L NC, NO ACUTE DISTRESS NOTED. WOUND DRESSINGS INTACT AND DRY. RASH NOTED ON FACE, AROUND LIPS. IV ON RIGHT FOREARM IS INTACT AND PATENT. SCDS PRESENT. BED IS LOCKED AND LOW, BED ALARMS ACTIVE, SIDE RAILS UP X2 AND CALL LIGHT IS WITHIN REACH.
--- NOTE | 2019-09-12 21:27 | General Progress Note ---
Assessment/Plan Problem List: (1) UTI (urinary tract infection) ICD Codes: N39.0 - Urinary tract infection, site not specified SNOMED: 57314323, 523581480, 7592638216505 Qualifiers: Qualified Codes: N39.0 - Urinary tract infection, site not specified (2) Transient hypotension ICD Codes: I95.9 - Hypotension, unspecified SNOMED: 36161889212188 (3) Chronic neck and back pain ICD Codes: M54.2 - Cervicalgia; M54.9 - Dorsalgia, unspecified; G89.29 - Other chronic pain SNOMED: 23819296, 331544704, 1893401609954 (4) Hypotension ICD Codes: I95.9 - Hypotension, unspecified SNOMED: 14714212 Qualifiers: Qualified Codes: I95.89 - Other hypotension (5) Electrolyte imbalance ICD Codes: E87.8 - Other disorders of electrolyte and fluid balance, not elsewhere classified SNOMED: 190290630 (6) Hypocalcemia ICD Codes: E83.51 - Hypocalcemia SNOMED: 6748357 Assessment/Plan: uti stable gave dc order mutiple pscyh idagnosis hypotension resolved Subjective ROS Limited/Unobtainable: Yes Allergies: Coded Allergies: DIPHENHYDRAMINE (Verified Allergy, Unknown, 09/07/19) PENICILLINS (Verified Allergy, Unknown, 09/07/19) SULFA (SULFONAMIDE ANTIBIOTICS) (Verified Allergy, Unknown, 09/07/19) SULFAMETHOXAZOLE (Verified Allergy, Unknown, 09/07/19) Shrimp (Verified Allergy, Unknown, 09/07/19) TETRACYCLINES (Verified Allergy, Unknown, 09/07/19) TRIMETHOPRIM (Verified Allergy, Unknown, 09/07/19) ZOLPIDEM (Verified Allergy, Unknown, 09/07/19) Objective Last 24 Hour Vital Signs Date Time Temp Pulse Resp B/P (MAP) Pulse Ox O2 Delivery O2 Flow Rate FiO2 09/12/19 16:00 98.0 66 17 116/82 (93) 97 09/12/19 12:00 98.6 79 20 102/76 (85) 97 09/12/19 09:28 109 127/88 09/12/19 09:28 109 127/88 09/12/19 09:00 Nasal Cannula 2.0 09/12/19 08:00 98.3 109 20 127/88 (101) 96 4/6/20 04:00 97.9 86 20 110/61 (77) 98 09/12/19 00:00 98.0 95 20 127/83 (98) 98 09/11/19 22:42 Nasal Cannula 2.0 Intake and Output 09/11/19 09/12/19 19:00 07:00 # Voids 2 Height (Feet): 5 Height (Inches): 2.00 Weight (Pounds): 143 Deneen Reyna MD Sep 12, 2019 21:27
--- NOTE | 2019-09-12 22:30 | Psych Consult Progress Note ---
Psychiatry Progress Note Psychiatry Progress Note Subjective the pt is doing better Medications Current Medications Medications (Trade) Dose Ordered Sig/Chen Route PRN Reason Start Time Stop Time Status Last Admin Dose Admin Acetaminophen (Tylenol) 650 mg Q4H PRN ORAL MILD PAIN/FEVER 09/09/19 16:26 10/07/19 16:25 09/10/19 10:33 Amlodipine Besylate (Norvasc) 5 mg DAILY ORAL 09/10/19 09:15 10/10/19 09:14 09/12/19 09:28 Clonidine HCl (Catapres Tab) 0.1 mg QID PRN ORAL HYPERTENSION 09/10/19 23:15 12/09/19 23:14 Lorazepam (Ativan) 1 mg Q6H PRN ORAL For Anxiety/agitation 09/10/19 09:30 09/17/19 09:29 09/12/19 06:29 Lorazepam (Ativan) 1 mg THREE TIMES A DAY ORAL 09/09/19 18:00 09/15/19 17:59 09/12/19 17:57 Metoprolol Succinate (Toprol XL) 25 mg DAILY ORAL 09/11/19 09:00 12/10/19 08:59 09/12/19 09:28 Mirtazapine (Remeron) 15 mg BEDTIME ORAL 09/09/19 21:00 12/06/19 21:59 09/11/19 20:12 Potassium Chloride (K-Dur) 40 meq BID ORAL 09/11/19 18:00 12/08/19 08:59 09/12/19 17:56 Risperidone (RisperDAL) 1 mg DAILY ORAL 09/10/19 09:00 10/23/19 08:59 09/12/19 09:28 Neurological/Psychiatric: Reports: anxiety, depressed, emotional problems Allergies: Coded Allergies: DIPHENHYDRAMINE (Verified Allergy, Unknown, 09/07/19) PENICILLINS (Verified Allergy, Unknown, 09/07/19) SULFA (SULFONAMIDE ANTIBIOTICS) (Verified Allergy, Unknown, 09/07/19) SULFAMETHOXAZOLE (Verified Allergy, Unknown, 09/07/19) Shrimp (Verified Allergy, Unknown, 09/07/19) TETRACYCLINES (Verified Allergy, Unknown, 09/07/19) TRIMETHOPRIM (Verified Allergy, Unknown, 09/07/19) ZOLPIDEM (Verified Allergy, Unknown, 09/07/19) Objective Data Height (Feet): 5 Height (Inches): 2.00 Weight (Pounds): 143 Additional Comments: alert, oriented times self, place, situation. Mood is depressed. Affect is constricted, congruent with mood. Thought process is concrete. Thought content, no suicidal or homicidal ideation. Assessment/Plan Assessment/Plan: PLAN: 1. Remeron 15 mg at bedtime. 2. Risperidone 1 mg in the morning. 3. Provide the patient with reality orientation. Taty Syed MD Sep 12, 2019 22:30
--- NOTE | 2019-09-12 22:40 | Cardiology Progress Note ---
Assessment/Plan Assessment/Plan 1. Hypotension, decrease amlodipine to 2.5mg daily, continue hydration. 2. Questionable DVT versus paroxysmal atrial fibrillation, continue Eliquis. 3. Hypertension, will continue metoprolol ER and amlodipine 2.5mg daily. Subjective Subjective No cardiac events reported. Objective Last 24 Hour Vital Signs Date Time Temp Pulse Resp B/P (MAP) Pulse Ox O2 Delivery O2 Flow Rate FiO2 09/12/19 21:00 Nasal Cannula 2.0 09/12/19 20:00 98.2 91 21 93/66 (75) 97 09/12/19 16:00 98.0 66 17 116/82 (93) 97 09/12/19 12:00 98.6 79 20 102/76 (85) 97 09/12/19 09:28 109 127/88 09/12/19 09:28 109 127/88 09/12/19 09:00 Nasal Cannula 2.0 09/12/19 08:00 98.3 109 20 127/88 (101) 96 09/12/19 04:00 97.9 86 20 110/61 (77) 98 09/12/19 00:00 98.0 95 20 127/83 (98) 98 09/11/19 22:42 Nasal Cannula 2.0 Intake and Output 09/11/19 09/12/19 19:00 07:00 # Voids 2 Objective HEENT: Atraumatic and normocephalic. Anicteric. Pupils are equal, round, and reactive to light and accommodation. Extraocular muscles intact. NECK: JVP less than 5 cm. No carotid bruit. Carotid upstrokes 2+ bilaterally. CARDIOVASCULAR: Normal S1, S2. Regular rate and rhythm. No murmurs, gallops, or rubs. PMI is at fourth intercostal space in the midclavicular line. LUNGS: Clear to auscultation bilaterally. ABDOMEN: Soft, nontender, and nondistended. No hepatosplenomegaly. Positive bowel sounds. EXTREMITIES: No evidence of edema, clubbing, or cyanosis. Jorje Sosa MD Sep 12, 2019 22:40
[2019-09-13] VITALS: BP 107/74
[2019-09-13 04:00] VITALS: BP 92/59
--- NOTE | 2019-09-13 07:43 | NUR ---
HAND-OFF: Report given to FLORES Chow. Patient is in stable condition.
--- NOTE | 2019-09-13 07:45 | NUR ---
NURSE NOTES: Received patient in bed, awake, not in acute respiratory/cardiac distress @ this time. Denies any pain or discomfort. Bed is in lowest position and locked. Call light within reach, bed alarm is on. Will continue plan of care.
[2019-09-13 08:00] VITALS: BP 130/99
[2019-09-13] MEDS: LORazepam 1mg tab ORAL SCH ×2 (08:50→13:48)
[2019-09-13] MEDS: Metoprolol Succinate XL 25mg tab ORAL SCH (08:51)
[2019-09-13 08:59] LABS: BASOPHILS % (AUTO) 0.5 % (0.0-2.0); EOSINOPHILS % (AUTO) 0.9 % (0.0-3.0); HEMATOCRIT 43.2 % (37.0-47.0); HEMOGLOBIN 14.5 G/DL (12.0-16.0); LYMPHOCYTES % (AUTO) 12.5 % (20.0-45.0); MEAN CORPUSCULAR VOLUME 88 FL (80-99); MONOCYTES % (AUTO) 10.6 % (1.0-10.0); NEUTROPHILS % (AUTO) 75.5 % (45.0-75.0); PLATELET COUNT 231 K/UL (150-450); RED CELL DISTRIBUTION WIDTH 14.3 % (11.6-14.8)
[2019-09-13 09:11] LABS: ALANINE AMINOTRANSFERASE 16 U/L (12-78); ALBUMIN 3.9 G/DL (3.4-5.0); ALBUMIN/GLOBULIN RATIO 1.1 (1.0-2.7); ALKALINE PHOSPHATASE 50 U/L (46-116); ANION GAP 11 mmol/L (5-15); ASPARTATE AMINO TRANSFERASE 14 U/L (15-37); BILIRUBIN,TOTAL 0.5 MG/DL (0.2-1.0); CALCIUM 8.9 MG/DL (8.5-10.1); CARBON DIOXIDE 26 MMOL/L (21-32); CHLORIDE 106 MMOL/L (98-107); CREATININE 0.5 MG/DL (0.55-1.30); PHOSPHORUS 3.7 MG/DL (2.5-4.9); POTASSIUM 4.1 MMOL/L (3.5-5.1); SODIUM 142 MMOL/L (136-145)
[2019-09-13 09:20] LABS: BLOOD UREA NITROGEN 21 mg/dL (7-18)
--- NOTE | 2019-09-13 09:49 | NUR ---
DISCHARGE PLANNING PATIENT ACCEPTED TO RETURN TO [facility]. PER ROLANDO AT [facility] WHO STATES PATIENT HAS BEEN A RESIDENT SINCE 05/2019. RECEIVED CALL FROM JEREMI CHARGE NURSE WHO STATES HE RECEIVED CALL FROM DR JANE WITH ORDER FOR SNF PLACEMENT. JEREMI INFORMED PATIENT HAS BEEN ACCEPTED TO RETURN TO [facility]. PER JEREMI, DR JANE GAVE ORDER TO REFER PATIENT TO [facility]. CM S/W DR JANE VIA PHONE AND INFORMED PATIENT IS ACCEPTED TO RETURN TO [facility] TODAY PER DISCHARGE ORDER. DR JANE INDICATED THAT THE SNF ON PATIENTS FACESHEET ([facility]) IS INCORRECT AND PATIENT IS FROM [facility]. ALSO INDICATED THAT IF [facility] UNABLE TO ACCEPT PATIENT, REFER TO [facility] AND [facility].
--- NOTE | 2019-09-13 10:03 | NUR ---
RD ASSESSMENT & RECOMMENDATIONS SEE CARE ACTIVITY FOR COMPLETE ASSESSMENT DAILY ESTIMATED NEEDS: Needs based on Cardiac, wound 58.4kg 25-30 kcals/kg 5950-0899 total kcals 1.25-1.5 g protein/kg 73-88 g total protein 25-30 mL/kg 1837-2452 total fluid mLs NUTRITION DIAGNOSIS: Decreased sodium needs r/t cardiac history as evidenced by h/o CVA, elev BP (130/99) CURRENT DIET: Regular soft easy chew PO DIET RECOMMENDATIONS: Maintain Regular diet w/ current variable po intake ADDITIONAL RECOMMENDATIONS: 1) diet texture as tolerated 2) Add Ensure enlive BID w/ variable po 3) If tolerated rec LILLIAN BID for skin integrity + Vit C 250mg daily 4) Maintain calibrated bed scale wts
--- NOTE | 2019-09-13 11:57 | NUR ---
DISCHARGE PLANNING PATIENT HAS BEEN REFERRED TO: [facility] P: [phone] F: [phone] [facility] P: [phone] F: [phone] [facility] P: [phone] F: [phone] Addendum: 09/13/19 at 1418 by CONTRERAS JUAREZ LVN LVN [facility] P: [phone] F: [phone] PER EBONI, INQUIRY IS CURRENTLY UNDER REVIEW BY EVGENY. WILL CALL BACK WITH ANSWER [facility] P: [phone] F: [phone] UNABLE TO ACCEPT PATIENTS AT THIS TIME DUE TO COVID-19 [facility] P: [phone] F: [phone] PER MICAH UNABLE TO ACCEPT PATIENTS AT THIS TIME DUE TO COVID-19
[2019-09-13 12:00] VITALS: BP 135/68
--- NOTE | 2019-09-13 12:04 | Infectious Diseases Prog Note ---
Assessment/Plan Assessment/Plan IMPRESSION: Pyuria and dysuria, treated for UTI. Anxiety schizophrenia, anemia, hyperlipidemia. Akathisia RECOMMENDATION: Observe off antibiotic Negative COVID-19 test Subjective ROS Limited/Unobtainable: Yes Allergies: Coded Allergies: DIPHENHYDRAMINE (Verified Allergy, Unknown, 09/07/19) PENICILLINS (Verified Allergy, Unknown, 09/07/19) SULFA (SULFONAMIDE ANTIBIOTICS) (Verified Allergy, Unknown, 09/07/19) SULFAMETHOXAZOLE (Verified Allergy, Unknown, 09/07/19) Shrimp (Verified Allergy, Unknown, 09/07/19) TETRACYCLINES (Verified Allergy, Unknown, 09/07/19) TRIMETHOPRIM (Verified Allergy, Unknown, 09/07/19) ZOLPIDEM (Verified Allergy, Unknown, 09/07/19) Objective Vital Signs Last 24 Hour Vital Signs Date Time Temp Pulse Resp B/P (MAP) Pulse Ox O2 Delivery O2 Flow Rate FiO2 09/13/19 09:00 Nasal Cannula 2.0 09/13/19 08:51 106 130/99 09/13/19 08:51 106 130/99 09/13/19 08:00 98.8 106 19 130/99 (109) 97 09/13/19 04:00 98.6 75 16 92/59 (70) 99 09/13/19 00:00 97.8 110 18 107/74 (85) 98 09/12/19 21:00 Nasal Cannula 2.0 09/12/19 20:00 98.2 91 21 93/66 (75) 97 09/12/19 16:00 98.0 66 17 116/82 (93) 97 Height (Feet): 5 Height (Inches): 2.00 Weight (Pounds): 143 General Appearance: no acute distress HEENT: mucous membranes moist Respiratory/Chest: lungs clear Cardiovascular: normal rate Abdomen: soft, non tender Extremities: no edema Skin: rash, other - perioral Neurologic/Psychiatric: alert, responsive, other - constant movement of mouth Laboratory Tests Test 09/13/19 07:40 White Blood Count 10.0 K/UL (4.8-10.8) Red Blood Count 4.90 M/UL (4.20-5.40) Hemoglobin 14.5 G/DL (12.0-16.0) Hematocrit 43.2 % (37.0-47.0) Mean Corpuscular Volume 88 FL (80-99) Mean Corpuscular Hemoglobin 29.6 PG (27.0-31.0) Mean Corpuscular Hemoglobin Concent 33.6 G/DL (32.0-36.0) Red Cell Distribution Width 14.3 % (11.6-14.8) Platelet Count 231 K/UL (150-450) Mean Platelet Volume 4.8 FL (6.5-10.1) L Neutrophils (%) (Auto) 75.5 % (45.0-75.0) H Lymphocytes (%) (Auto) 12.5 % (20.0-45.0) L Monocytes (%) (Auto) 10.6 % (1.0-10.0) H Eosinophils (%) (Auto) 0.9 % (0.0-3.0) Basophils (%) (Auto) 0.5 % (0.0-2.0) Sodium Level 142 MMOL/L (136-145) Potassium Level 4.1 MMOL/L (3.5-5.1) Chloride Level 106 MMOL/L (98-107) Carbon Dioxide Level 26 MMOL/L (21-32) Anion Gap 11 mmol/L (5-15) Blood Urea Nitrogen 21 mg/dL (7-18) H Creatinine 0.5 MG/DL (0.55-1.30) L Estimat Glomerular Filtration Rate > 60 mL/min (>60) Glucose Level 120 MG/DL (74-106) H Calcium Level 8.9 MG/DL (8.5-10.1) Phosphorus Level 3.7 MG/DL (2.5-4.9) Magnesium Level 2.4 MG/DL (1.8-2.4) Total Bilirubin 0.5 MG/DL (0.2-1.0) Aspartate Amino Transf (AST/SGOT) 14 U/L (15-37) L Alanine Aminotransferase (ALT/SGPT) 16 U/L (12-78) Alkaline Phosphatase 50 U/L (46-116) C-Reactive Protein, Quantitative 1.9 mg/dL (0.00-0.90) H Total Protein 7.6 G/DL (6.4-8.2) Albumin 3.9 G/DL (3.4-5.0) Globulin 3.7 g/dL Albumin/Globulin Ratio 1.1 (1.0-2.7) Current Medications Medications (Trade) Dose Ordered Sig/Chen Route PRN Reason Start Time Stop Time Status Last Admin Dose Admin Acetaminophen (Tylenol) 650 mg Q4H PRN ORAL MILD PAIN/FEVER 09/09/19 16:26 10/07/19 16:25 09/13/19 01:23 Amlodipine Besylate (Norvasc) 2.5 mg DAILY ORAL 09/13/19 09:00 10/13/19 08:59 09/13/19 08:51 Clonidine HCl (Catapres Tab) 0.1 mg QID PRN ORAL HYPERTENSION 09/10/19 23:15 12/09/19 23:14 Lorazepam (Ativan) 1 mg Q6H PRN ORAL For Anxiety/agitation 09/10/19 09:30 09/17/19 09:29 09/12/19 06:29 Lorazepam (Ativan) 1 mg THREE TIMES A DAY ORAL 09/09/19 18:00 09/15/19 17:59 09/13/19 08:50 Metoprolol Succinate (Toprol XL) 25 mg DAILY ORAL 09/11/19 09:00 12/10/19 08:59 09/13/19 08:51 Mirtazapine (Remeron) 15 mg BEDTIME ORAL 09/09/19 21:00 12/06/19 21:59 09/11/19 20:12 Potassium Chloride (K-Dur) 40 meq BID ORAL 09/11/19 18:00 12/08/19 08:59 09/13/19 08:51 Risperidone (RisperDAL) 1 mg DAILY ORAL 09/10/19 09:00 10/23/19 08:59 09/13/19 08:51 Lenny Fernandez MD Sep 13, 2019 12:04
--- NOTE | 2019-09-13 12:49 | Nephrology Progress Note ---
Assessment/Plan Problem List: (1) Hypotension Assessment: Resolved- blood pressure fluctuating (2) Electrolyte imbalance (3) Hypocalcemia Assessment Episodic hypotension Anemia Hypocalcemia and hypernatremia UTI (urinary tract infection) Chronic neck and back pain Plan Check labs in a.m. Add Norvasc for blood pressure Potassium supplement as needed Urine for tox screen negative Fluid challenge Monitor electrolytes and chemistries Anemia work-up Per orders Per consultants Subjective ROS Limited/Unobtainable: No Constitutional: Reports: malaise, weakness Objective Objective Last 24 Hour Vital Signs Date Time Temp Pulse Resp B/P (MAP) Pulse Ox O2 Delivery O2 Flow Rate FiO2 09/13/19 09:00 Nasal Cannula 2.0 09/13/19 08:51 106 130/99 09/13/19 08:51 106 130/99 09/13/19 08:00 98.8 106 19 130/99 (109) 97 09/13/19 04:00 98.6 75 16 92/59 (70) 99 09/13/19 00:00 97.8 110 18 107/74 (85) 98 09/12/19 21:00 Nasal Cannula 2.0 09/12/19 20:00 98.2 91 21 93/66 (75) 97 09/12/19 16:00 98.0 66 17 116/82 (93) 97 Intake and Output 09/12/19 09/13/19 19:00 07:00 Intake Total 240 ml Balance 240 ml Intake Oral 240 ml # Voids 1 4 Current Medications Medications (Trade) Dose Ordered Sig/Chen Route PRN Reason Start Time Stop Time Status Last Admin Dose Admin Acetaminophen (Tylenol) 650 mg Q4H PRN ORAL MILD PAIN/FEVER 09/09/19 16:26 10/07/19 16:25 09/13/19 01:23 Amlodipine Besylate (Norvasc) 2.5 mg DAILY ORAL 09/13/19 09:00 10/13/19 08:59 09/13/19 08:51 Clonidine HCl (Catapres Tab) 0.1 mg QID PRN ORAL HYPERTENSION 09/10/19 23:15 12/09/19 23:14 Lorazepam (Ativan) 1 mg Q6H PRN ORAL For Anxiety/agitation 09/10/19 09:30 09/17/19 09:29 09/12/19 06:29 Lorazepam (Ativan) 1 mg THREE TIMES A DAY ORAL 09/09/19 18:00 09/15/19 17:59 09/13/19 08:50 Metoprolol Succinate (Toprol XL) 25 mg DAILY ORAL 09/11/19 09:00 12/10/19 08:59 09/13/19 08:51 Mirtazapine (Remeron) 15 mg BEDTIME ORAL 09/09/19 21:00 12/06/19 21:59 09/11/19 20:12 Potassium Chloride (K-Dur) 40 meq BID ORAL 09/11/19 18:00 12/08/19 08:59 09/13/19 08:51 Risperidone (RisperDAL) 1 mg DAILY ORAL 09/10/19 09:00 10/23/19 08:59 09/13/19 08:51 Laboratory Tests 09/13/19 07:40: White Blood Count 10.0, Red Blood Count 4.90, Hemoglobin 14.5, Hematocrit 43.2, Mean Corpuscular Volume 88, Mean Corpuscular Hemoglobin 29.6, Mean Corpuscular Hemoglobin Concent 33.6, Red Cell Distribution Width 14.3, Platelet Count 231, Mean Platelet Volume 4.8L, Neutrophils (%) (Auto) 75.5H, Lymphocytes (%) (Auto) 12.5L, Monocytes (%) (Auto) 10.6H, Eosinophils (%) (Auto) 0.9, Basophils (%) ( Auto) 0.5, Sodium Level 142, Potassium Level 4.1, Chloride Level 106, Carbon Dioxide Level 26, Anion Gap 11, Blood Urea Nitrogen 21H, Creatinine 0.5L, Estimat Glomerular Filtration Rate > 60, Glucose Level 120H, Calcium Level 8.9, Phosphorus Level 3.7, Magnesium Level 2.4, Total Bilirubin 0.5, Aspartate Amino Transf (AST/SGOT) 14L, Alanine Aminotransferase (ALT/SGPT) 16, Alkaline Phosphatase 50, C-Reactive Protein, Quantitative 1.9H, Total Protein 7.6, Albumin 3.9, Globulin 3.7, Albumin/Globulin Ratio 1.1 Height (Feet): 5 Height (Inches): 2.00 Weight (Pounds): 143 General Appearance: no apparent distress Cardiovascular: tachycardia Respiratory/Chest: decreased breath sounds Abdomen: distended Donaldo Mandel MD Sep 13, 2019 12:49
--- NOTE | 2019-09-13 14:11 | Hematology/Onc Progress Note ---
Assessment/Plan Assessment/Plan Assessment and Recs: # Hypercoagulable disorder -- on eliquis, cardiology has been consulted --> obtain duplex of lower extremities and restart apixaban as needed --> will evaluate cards recs if qualifies for eliquis --> get home / outpatient records # Anemia of chronic disease --> hold of extensive workup --> hgb 10.7-->13 --> w/u if lower # Transient hypotension --> ivf have been started --> abx completed # UTI (urinary tract infection) --> on abx: ceftriaxone--> completed # covid 19 negative # Anxiety as per psych # Chronic neck and back pain Appreciate consultation and dw Rn Subjective Allergies: Coded Allergies: DIPHENHYDRAMINE (Verified Allergy, Unknown, 09/07/19) PENICILLINS (Verified Allergy, Unknown, 09/07/19) SULFA (SULFONAMIDE ANTIBIOTICS) (Verified Allergy, Unknown, 09/07/19) SULFAMETHOXAZOLE (Verified Allergy, Unknown, 09/07/19) Shrimp (Verified Allergy, Unknown, 09/07/19) TETRACYCLINES (Verified Allergy, Unknown, 09/07/19) TRIMETHOPRIM (Verified Allergy, Unknown, 09/07/19) ZOLPIDEM (Verified Allergy, Unknown, 09/07/19) Subjective 09/10 no acute events, labs reviewed, nc 2l, on ceftriaxone 09/11 a+o x1, no bleeding, no fc, or chills are noted 09/12 negative for cov 19, off abx, no acute distress Objective Objective Current Medications Medications (Trade) Dose Ordered Sig/Chen Route PRN Reason Start Time Stop Time Status Last Admin Dose Admin Acetaminophen (Tylenol) 650 mg Q4H PRN ORAL MILD PAIN/FEVER 09/09/19 16:26 10/07/19 16:25 09/13/19 01:23 Amlodipine Besylate (Norvasc) 2.5 mg DAILY ORAL 09/13/19 09:00 10/13/19 08:59 09/13/19 08:51 Clonidine HCl (Catapres Tab) 0.1 mg QID PRN ORAL HYPERTENSION 09/10/19 23:15 12/09/19 23:14 Lorazepam (Ativan) 1 mg Q6H PRN ORAL For Anxiety/agitation 09/10/19 09:30 09/17/19 09:29 09/12/19 06:29 Lorazepam (Ativan) 1 mg THREE TIMES A DAY ORAL 09/09/19 18:00 09/15/19 17:59 09/13/19 13:48 Metoprolol Succinate (Toprol XL) 25 mg DAILY ORAL 09/11/19 09:00 12/10/19 08:59 09/13/19 08:51 Mirtazapine (Remeron) 15 mg BEDTIME ORAL 09/09/19 21:00 12/06/19 21:59 09/11/19 20:12 Potassium Chloride (K-Dur) 40 meq BID ORAL 09/11/19 18:00 12/08/19 08:59 09/13/19 08:51 Risperidone (RisperDAL) 1 mg DAILY ORAL 09/10/19 09:00 10/23/19 08:59 09/13/19 08:51 Last 24 Hour Vital Signs Date Time Temp Pulse Resp B/P (MAP) Pulse Ox O2 Delivery O2 Flow Rate FiO2 09/13/19 12:00 98.1 69 18 135/68 (90) 98 09/13/19 09:00 Nasal Cannula 2.0 09/13/19 08:51 106 130/99 09/13/19 08:51 106 130/99 09/13/19 08:00 98.8 106 19 130/99 (109) 97 09/13/19 04:00 98.6 75 16 92/59 (70) 99 09/13/19 00:00 97.8 110 18 107/74 (85) 98 09/12/19 21:00 Nasal Cannula 2.0 09/12/19 20:00 98.2 91 21 93/66 (75) 97 09/12/19 16:00 98.0 66 17 116/82 (93) 97 09/12/19 12:00 98.6 79 20 102/76 (85) 97 09/12/19 09:28 109 127/88 09/12/19 09:28 109 127/88 09/12/19 09:00 Nasal Cannula 2.0 09/12/19 08:00 98.3 109 20 127/88 (101) 96 09/12/19 04:00 97.9 86 20 110/61 (77) 98 09/12/19 00:00 98.0 95 20 127/83 (98) 98 09/11/19 22:42 Nasal Cannula 2.0 09/11/19 20:00 97.0 101 20 130/87 (101) 98 09/11/19 16:00 98.4 89 18 129/90 (103) 98 Intake and Output 09/12/19 09/13/19 19:00 07:00 Intake Total 240 ml Balance 240 ml Intake Oral 240 ml # Voids 1 4 Labs Test 09/11/19 07:33 09/13/19 07:40 White Blood Count 6.7 K/UL (4.8-10.8) 10.0 K/UL (4.8-10.8) Red Blood Count 4.39 M/UL (4.20-5.40) 4.90 M/UL (4.20-5.40) Hemoglobin 13.0 G/DL (12.0-16.0) 14.5 G/DL (12.0-16.0) Hematocrit 38.8 % (37.0-47.0) 43.2 % (37.0-47.0) Mean Corpuscular Volume 88 FL (80-99) 88 FL (80-99) Mean Corpuscular Hemoglobin 29.5 PG (27.0-31.0) 29.6 PG (27.0-31.0) Mean Corpuscular Hemoglobin Concent 33.4 G/DL (32.0-36.0) 33.6 G/DL (32.0-36.0) Red Cell Distribution Width 14.6 % (11.6-14.8) 14.3 % (11.6-14.8) Platelet Count 225 K/UL (150-450) 231 K/UL (150-450) Mean Platelet Volume 5.0 FL (6.5-10.1) 4.8 FL (6.5-10.1) Neutrophils (%) (Auto) 60.9 % (45.0-75.0) 75.5 % (45.0-75.0) Lymphocytes (%) (Auto) 25.1 % (20.0-45.0) 12.5 % (20.0-45.0) Monocytes (%) (Auto) 10.2 % (1.0-10.0) 10.6 % (1.0-10.0) Eosinophils (%) (Auto) 2.9 % (0.0-3.0) 0.9 % (0.0-3.0) Basophils (%) (Auto) 0.8 % (0.0-2.0) 0.5 % (0.0-2.0) Sodium Level 142 MMOL/L (136-145) Potassium Level 4.1 MMOL/L (3.5-5.1) Chloride Level 106 MMOL/L (98-107) Carbon Dioxide Level 26 MMOL/L (21-32) Anion Gap 11 mmol/L (5-15) Blood Urea Nitrogen 21 mg/dL (7-18) Creatinine 0.5 MG/DL (0.55-1.30) Estimat Glomerular Filtration Rate > 60 mL/min (>60) Glucose Level 120 MG/DL (74-106) Calcium Level 8.9 MG/DL (8.5-10.1) Phosphorus Level 3.7 MG/DL (2.5-4.9) Magnesium Level 2.4 MG/DL (1.8-2.4) Total Bilirubin 0.5 MG/DL (0.2-1.0) Aspartate Amino Transf (AST/SGOT) 14 U/L (15-37) Alanine Aminotransferase (ALT/SGPT) 16 U/L (12-78) Alkaline Phosphatase 50 U/L (46-116) C-Reactive Protein, Quantitative 1.9 mg/dL (0.00-0.90) Total Protein 7.6 G/DL (6.4-8.2) Albumin 3.9 G/DL (3.4-5.0) Globulin 3.7 g/dL Albumin/Globulin Ratio 1.1 (1.0-2.7) Height (Feet): 5 Height (Inches): 2.00 Weight (Pounds): 143 Objective Review of Systems All Other Systems: negative except mentioned in HPI, confused now PE Vitals: reviewed General: no apparent distress, GCS 15 Heent: nc, at Neck: supple, tender - Bilaterally no point tenderness Respiratory: lungs clear, normal breath sounds, NC++ Cv: rrr, no mgr Gi normal inspection, normal bowel sounds, no mass, nd - Minimal suprapubic Gu: no CVA tenderness Msk: normal range of motion, no calf tenderness, gait/station normal, tender Neuro: alert, motor strength/tone normal, oriented - X2, sensory intact Psychiatric: depressed affect Skin: rash - Left side of mouth extending down towards chin, warm/dry Tony Quiroz MD Sep 13, 2019 14:11
--- NOTE | 2019-09-13 15:29 | NUR ---
DISCHARGE PLANNING PATIENT HAS BEEN REFERRED TO [facility] P: [phone] F: [phone] Addendum: 09/13/19 at 1704 by CONTRERAS JUAREZ LVN LVN PATIENT ACCEPTED AT [facility] TRANSPORT SCHEDULED WITH [facility] @ EXT [id number] WITH ETA AT APPROX 1745 PM PER CONOR
--- NOTE | 2019-09-13 15:34 | NUR ---
PROCESSOR GRAIN NOTE FOLLOW UP CALL MADE TO [facility]. S/W EBONI. STATES DON IS STILL REVIEWING THE INQUIRY AND HAS NOT GIVEN AN ANSWER. SHE WILL NOTIFY THIS CM OF DECISION.
[2019-09-13 16:00] VITALS: BP 121/63
--- NOTE | 2019-09-13 16:32 | General Progress Note ---
Assessment/Plan Assessment/Plan: (1) Degenerative joint disease (2) Multiple joint pain Patient to be continued on Tylenol as needed. D/w Dr. Rivas and he concurred. Subjective Date patient seen: Sep 13, 2019 Time patient seen: 04:00 - pm Allergies: Coded Allergies: DIPHENHYDRAMINE (Verified Allergy, Unknown, 09/07/19) PENICILLINS (Verified Allergy, Unknown, 09/07/19) SULFA (SULFONAMIDE ANTIBIOTICS) (Verified Allergy, Unknown, 09/07/19) SULFAMETHOXAZOLE (Verified Allergy, Unknown, 09/07/19) Shrimp (Verified Allergy, Unknown, 09/07/19) TETRACYCLINES (Verified Allergy, Unknown, 09/07/19) TRIMETHOPRIM (Verified Allergy, Unknown, 09/07/19) ZOLPIDEM (Verified Allergy, Unknown, 09/07/19) Subjective Constitutional: Reports: weakness HEENT: Reports: no symptoms Cardiovascular: Reports: no symptoms Respiratory: Reports: shortness of breath Gastrointestinal/Abdominal: Reports: no symptoms Genitourinary: Reports: no symptoms Neurologic/Psychiatric: Reports: depressed, weakness Endocrine: Reports: no symptoms Hematologic/Lymphatic: Reports: no symptoms Subjective Patient doing well and pain has been stable on the Tylenol. Objective Last 24 Hour Vital Signs Date Time Temp Pulse Resp B/P (MAP) Pulse Ox O2 Delivery O2 Flow Rate FiO2 09/13/19 12:00 98.1 69 18 135/68 (90) 98 09/13/19 09:00 Nasal Cannula 2.0 09/13/19 08:51 106 130/99 09/13/19 08:51 106 130/99 09/13/19 08:00 98.8 106 19 130/99 (109) 97 09/13/19 04:00 98.6 75 16 92/59 (70) 99 09/13/19 00:00 97.8 110 18 107/74 (85) 98 09/12/19 21:00 Nasal Cannula 2.0 09/12/19 20:00 98.2 91 21 93/66 (75) 97 Intake and Output 09/12/19 09/13/19 19:00 07:00 Intake Total 240 ml Balance 240 ml Intake Oral 240 ml # Voids 1 4 Laboratory Tests 09/13/19 07:40: White Blood Count 10.0, Red Blood Count 4.90, Hemoglobin 14.5, Hematocrit 43.2, Mean Corpuscular Volume 88, Mean Corpuscular Hemoglobin 29.6, Mean Corpuscular Hemoglobin Concent 33.6, Red Cell Distribution Width 14.3, Platelet Count 231, Mean Platelet Volume 4.8L, Neutrophils (%) (Auto) 75.5H, Lymphocytes (%) (Auto) 12.5L, Monocytes (%) (Auto) 10.6H, Eosinophils (%) (Auto) 0.9, Basophils (%) ( Auto) 0.5, Sodium Level 142, Potassium Level 4.1, Chloride Level 106, Carbon Dioxide Level 26, Anion Gap 11, Blood Urea Nitrogen 21H, Creatinine 0.5L, Estimat Glomerular Filtration Rate > 60, Glucose Level 120H, Calcium Level 8.9, Phosphorus Level 3.7, Magnesium Level 2.4, Total Bilirubin 0.5, Aspartate Amino Transf (AST/SGOT) 14L, Alanine Aminotransferase (ALT/SGPT) 16, Alkaline Phosphatase 50, C-Reactive Protein, Quantitative 1.9H, Total Protein 7.6, Albumin 3.9, Globulin 3.7, Albumin/Globulin Ratio 1.1 Height (Feet): 5 Height (Inches): 2.00 Weight (Pounds): 143 Objective General Appearance: no apparent distress EENT: normal ENT inspection Neck: non-tender, normal alignment Cardiovascular: normal rate, regular rhythm Respiratory/Chest: decreased breath sounds Abdomen: non tender, soft Extremities: non-tender Edema: trace edema Neurologic: responsive Skin: normal pigmentation Ricardo Garcia Sep 13, 2019 16:32
--- NOTE | 2019-09-13 17:50 | NUR ---
NURSE NOTES: Discharged patient to [facility]. Patient's family was informed of discharge and given SNF phone number. Prior to discharge,patient's V/S stable, afebrile, denied any pain or discomfort. No belongings. RN spoke to Jairo TANNER @ [place] and inter facility report given and endorsed plan of care. IV and ID were removed, no s/s of infection IV removal site. Skin assessment done, no new skin issue, sacral noted with redness,no skin break.
--- NOTE | 2019-09-13 22:49 | Psych Consult Progress Note ---
Psychiatry Progress Note Psychiatry Progress Note Subjective doing better, calmer, more manageable. Allergies: Coded Allergies: DIPHENHYDRAMINE (Verified Allergy, Unknown, 09/07/19) PENICILLINS (Verified Allergy, Unknown, 09/07/19) SULFA (SULFONAMIDE ANTIBIOTICS) (Verified Allergy, Unknown, 09/07/19) SULFAMETHOXAZOLE (Verified Allergy, Unknown, 09/07/19) Shrimp (Verified Allergy, Unknown, 09/07/19) TETRACYCLINES (Verified Allergy, Unknown, 09/07/19) TRIMETHOPRIM (Verified Allergy, Unknown, 09/07/19) ZOLPIDEM (Verified Allergy, Unknown, 09/07/19) Objective Data Height (Feet): 5 Height (Inches): 2.00 Weight (Pounds): 143 General Appearance: no apparent distress, alert, overweight, alert oriented x3 Mental Status Exam - Thought P: circumstantial Mental Status Exam - Suicidal: not present Assessment/Plan Status: doing well, stable, progressing Assessment/Plan: PLAN: 1. Remeron 15 mg at bedtime. 2. Risperidone 1 mg in the morning. 3. Provide the patient with reality orientation. Taty Syed MD Sep 13, 2019 22:48
--- NOTE | 2019-09-14 11:41 | Discharge Summary ---
Discharge Summary Discharge Summary _ DATE OF ADMISSION: 09/07/2019 DATE OF DISCHARGE: 09/13/2019 DISCHARGED BY: Dr. Reyna REASON FOR ADMISSION: 68 years old female with past medical history of bipolar disorder, depression , anxiety, resident of halfway facility, presented with complaint of neck and lower back pain. Pain rated 10 out of 10 and was nonradiating, aching and sharp. Patient described the pain was worse when she moves around. Patient denied trauma or fall. Patient was on Eliquis, however the reason for anticoagulation was not clear. Patient also complained about abdominal pain and dysuria. No nausea , vomiting or diarrhea. She denied cough and sore throat. She denied fever and chills. No chest pain or shortness of breath. Upon evaluation vital signs revealed hypotension with blood pressure 82/51 , otherwise patient was afebrile and pulse oximetry was stable on room air. Laboratory work-up revealed no leukocytosis ,hemoglobin 11.9 ,hematocrit 35.4 , stable platelet count. Stable electrolytes and renal parameters. Lactic acid 0.5. Troponin 0.013. pro BNP 97. AST 14, ALT 16. Urinalysis revealed pyuria and moderate bacteria, +2 protein. Urine toxicology screen was negative. Chest x-ray demonstrated no acute cardiopulmonary pathology. Patient received fluid bolus then started on the IV hydration. Blood pressure improved. Patient was medicated for pain . Due to incidence of COVID 19 cases at [facility], patient was tested for COVID infection. Patient subsequently admitted to telemetry floor since she had transient hypotension. CONSULTANTS: trolley car overhauler Dr. Sosa ID specialist Dr. Lenny Fernandez cream hauler Dr. Mandel carding machine feeder/oncologist Dr. Quiroz psychiatrist Dr. Syed pain specialist Dr. Rivas [facility] COURSE: Patient admitted to telemetry floor and was initially on contact and droplet isolation. Patient continued on IV hydration. Echocardiogram demonstrated preserved ejection fraction of 65% with no evidence of left ventricular hypertrophy. No evidence of wall motion abnormality. Blood rpessure improved with IV hydration. Antihypertensive regimen down titrated . Blood pressure was managed with beta-jose and low-dose of Norvasc. Reason for anticoagulation was unclear, possible DVT versus paroxysmal atrial fibrillation. Eliquis continued. Venous duplex bilateral lower extremity revealed no evidence of acute DVT. Telemetry showed sinus rhythm Blood pressure stabilized and prior to discharge 121/63. Renal parameters and electrolytes were closely monitored. Electrolytes corrected as needed. Nephrotoxins were avoided. Hypocalcemia hypokalemia and hypernatremia were all corrected. Prior to discharge sodium 142, potassium 4.1, calcium 8.9. Blood cultures were negative. Urine culture revealed mixed gram-positive organism. COVID 19 was not detected. Patient remained afebrile , no leukocytosis. Patient was treated for possible UTI due to dysuria and pyuria. Patient later was observed off antibiotics. No fever, no leukocytosis. Hemoglobin and hematocrit were closely monitored with goal to keep hemoglobin above 7. Anemia work-up was consistent with anemia of chronic disease. Stable B12. Low folate . Patient started on folic acid replacement . Prior to discharge hemoglobin 14.5, hematocrit 43.2. Pain management was addressed as per pain specialist recommendation due to degenerative joint disease and multiply joint pain. Psychiatrist followed. Reality orientation and supportive therapy provided. Psychiatric medication regimen optimized. Patient clinically stabilized and was ready for discharge FINAL DIAGNOSES: Suspected COVID 19 infection - ruled out Pyuria and dysuria, probably UTI, status post treatment Transient hypotension Questionable DVT versus paroxysmal atrial fibrillation/ on anticoagulation Hypertension Electrolyte imbalance Anemia of chronic disease Hyperlipidemia Schizophrenia Cognitive impairment Degenerative joint disease Multiple joint pain Chronic neck and back pain DISCHARGE MEDICATIONS: See Medication Reconciliation list. DISCHARGE INSTRUCTIONS: Patient was discharged to the halfway facility. Follow up with medical doctor at the facility. I have been assigned to dictate discharge summary for this account. I was not involved in the patient's management. Beth Nolasco NP Sep 14, 2019 11:41
== END 2019-09-13 17:52 | DRG 315 ==
LOC: EDBD 13:39 → EMR 14:17 → 2W 14:58 → EDBEDREQ 16:45 → 4E 09-09 16:20
DX: I95.89 Other hypotension (principal); N39.0 Urinary tract infection, site not specified; D68.59 Other primary thrombophilia; E87.0 Hyperosmolality and hypernatremia; I82.409 Acute embolism and thrombosis of unspecified deep veins of unspecified lower extremity; F20.9 Schizophrenia, unspecified; E83.51 Hypocalcemia; Z79.01 Long term (current) use of anticoagulants; Z88.0 Allergy status to penicillin; Z88.2 Allergy status to sulfonamides; Z88.8 Allergy status to other drugs, medicaments and biological substances; G89.4 Chronic pain syndrome; D63.8 Anemia in other chronic diseases classified elsewhere; I48.91 Unspecified atrial fibrillation; E78.5 Hyperlipidemia, unspecified; M19.90 Unspecified osteoarthritis, unspecified site; M54.2 Cervicalgia; M54.9 Dorsalgia, unspecified; I10 Essential (primary) hypertension; F41.9 Anxiety disorder, unspecified; E87.6 Hypokalemia
CPT/HCPCS: 36415; 71045; 80053; 80307; 81003; 82533; 82550; 82607; 82728; 82746; 83540; 83550; 83605; 83690; 83735; 83880; 84100; 84484; 84550; 85025; 85610; 85730; 86140; 87040; 87081; 87086; 87635; 93005; 93306; 93970; 96361; 96365; 96375; 99291; J2405; J7030; J8499